=== PATIENT | female | born 1990 | race Caucasian/White ===

== ENCOUNTER → 2019-12-24 09:23 | Outpatient (CLI) | payer OTHER, SELFPAY ==
--- NOTE | 2019-12-24 09:32 | US_ITS ---
STUDY: RENAL ULTRASOUND - COMPLETE REASON FOR EXAM: Female, 29 years old. Hx hydronephrosis and renal calc TECHNIQUE: Ultrasound evaluation of the kidneys was performed with real-time and static castillo-scale imaging. COMPARISON: None. FINDINGS: RIGHT KIDNEY: Normal location of the right kidney, which is normal in size. The right kidney measures 10.7 cm x 5 cm x 3.9 cm. There is a normal cortex of the right kidney. The renal cortex measures 1.5 cm. There is no right renal mass or cyst. There are no right renal calculi. There is no right hydronephrosis. DISTAL RIGHT URETER: There is non-visualization of the distal right ureter. There is no demonstrated right ureterovesical junction calculus. There is a visualized right ureteral jet. LEFT KIDNEY: Normal location of the left kidney, which is normal in size. The left kidney measures 10.7 cm x 4.2 cm x 4.9 cm. There is a normal cortex of the left kidney. The renal cortex measures 1.3 cm. There is no left renal mass or cyst. There are no left renal calculi. There is no left hydronephrosis. DISTAL LEFT URETER: There is non-visualization of the distal left ureter. There is no demonstrated left ureterovesical junction calculus. There is a visualized left ureteral jet. BLADDER: The distended urinary bladder has a volume of 76 ml. There is a normal wall thickness of the distended urinary bladder. There is no demonstrated mass within the urinary bladder. There are no demonstrated bladder calculi. US/Kidney and Bladder IMPRESSION: Normal ultrasound of the kidneys and urinary bladder. Electronically Signed: Kenny Jean-Baptiste, at 13:30 EDT , Service support ,
== END ==
PROVIDERS: PCP Family Medicine; Referring Provider Urology; Visit Provider Urology
DX: N13.2 Hydronephrosis with renal and ureteral calculous obstruction (principal)
CPT/HCPCS: 76770

== ENCOUNTER → 2025-03-08 | Outpatient (CLI) | payer BC, SELFPAY ==
--- NOTE | 2025-03-08 16:35 | US_ITS ---
PROCEDURE: KIDNEY AND BLADDER 03/08/2025 REASON FOR EXAM: URGENCY, BACK PAIN, HISTORY STONES TECHNIQUE: Procedure Code: USKI Modality: US Procedure: KIDNEY AND BLADDER. Real-time ultrasound of the retroperitoneum (complete) with image documentation. COMPARISON: 12/24/2019 FINDINGS: RIGHT KIDNEY Size: Normal measuring 10.7 x 3.8 x 4.1 cm. Echogenicity: Normal. Parenchymal thickness: Normal. Hydronephrosis: None. Calculi: Two calculi, both measuring 0.3 x 0.2 x 0.2 cm. Cysts: None. Solid masses: None. LEFT KIDNEY Size: Normal measuring 10.1 x 4.6 x 4.7 cm. Echogenicity: Normal. Parenchymal thickness: Normal. Hydronephrosis: None. Calculi: Two calculi measuring 0.2 x 0.2 x 0.3 cm and 0.2 x 0.1 x 0.3 cm. Cysts: None. Solid masses: None. BLADDER: Normal morphology with prevoid volume of 245 mL. Postvoid volume of 4.7 mL, which is within normal limits. OTHER: None. US/Kidney and Bladder IMPRESSION: Nonobstructing renal calculi bilaterally. Reading Location: [id number]
--- OUTSIDE RECORDS SUMMARY | 2025-03-08 16:43 | XMS RPT_ITS | CCD ---
Author Organization [facility] Care Team Providers Care [employer] Stewardess Name Role Phone Phong Kelley Unavailable UnavailBuzz Jones Unavailable Unavailable Rajinder Ortiz Unavailable Unavailable Jeanie Cleveland Unavailable Unavailable None, No PCP Unavailable Unavailable Jeanie Cleveland Primary Care Provider Jeanie Cleveland MD Primary Care Provider Jeanie Cleveland Unavailable Unavailable Unavailable Jeanie Cleveland MD Primary Care Provider Jeanie Cleveland MD Primary Care Provider JEANIE CLEVELAND Primary Care Unava ilable ZURI TANG DO Attending Unavailab JEANIE Smith Primary Care Unava ilable ZURI DE LA PZA Attending Unavailable JEANIE CLEVELAND Primary Care Unava ilable Sarahi Banegas Unavailable Meagan Castillo Unavailable [facility] Primary Care Provider ED RODRÍGUEZ Attending Unavailable RUTH WALTER Attending Unavailable Cristofer SRIVASTAVA, Dr. Ware Primary Care Provider [phone] Dr. Jeanie Cleveland MD Referring Provider [phone] Dr. Gabby August MD Attending Provider Jeanie Cleveland Primary Care Unavailable Gabby August Attending Unavailable Jeanie Cleveland Referring Unavailable Gabby August Referring Unavailable Gabby August Attending Unavailable RUTH WALTER Primary Care Unavailable Medications Current Medications Medication Drug Class(es) Dates Sig (Normalized) Sig (Original) Albuterol 90 mcg/inh inhalation aerosol (1 source) beta2-Adrenergic Agonist Start: 08-03-2022 Albuterol 90 mcg/inh inhalation aerosol amitriptyline hydrochloride 25 mg oral tablet (2 sources) Tricyclic Antidepressant Start: 09-18-2021 take 1 tablet by mouth once daily amitriptyline (ELAVIL) 25 MG tablet Take 1 tablet by mouth nightly 30 tablet 5 09/18/2021 Active amoxicillin 500 mg oral capsule (1 source) Penicillin-class Antibacterial Start: 10-24-2024 End: 10-31-2024 take 1 capsule by mouth three times daily amoxicillin (Amoxil) 500 MG capsule Indications: Acute otitis externa of left ear, unspecified type , Upper respiratory tract infection, unspecified type Take 1 capsule (500 mg) by mouth 3 times daily for 7 days. 21 capsule 10/24/2024 10/31/2024 Active azelastine hydrochloride 0.137 mg/actuat metered dose nasal spray (1 source) Histamine-1 Receptor Antagonist Start: 05-02-2023 Azelastine 137 mcg/inh (0.1%) nasal spray benzonatate 200 mg oral capsule (2 sources) Non-narcotic Antitussive Start: 05-02-2023 Benzonatate 200 mg oral capsule Start: 06-23-2014 take 1 capsule by mo [facility] three times daily as needed Benzonatate 100 MG Oral Capsule TAKE 1 CAPSULE 3 TIMES DAILY NEEDED. Quantity: 30 Refills: 0 Phong Kelley DO Start : 23-Jun-2014 Active bismuth subsalicylate (1 source) Bismuth Bismuth Subsalic ylate (PEPTO-BISMOL PO) Take by mouth 0 Active cefdinir 300 mg oral capsule (1 source) Cephalosporin Antibacterial Start: 05-02-2023 Cefdinir 300 mg oral capsule cyclobenzaprine hydrochloride 10 mg oral tablet (3 sources) Muscle Relaxant Start: 11-28-2023 Cyclobenzaprine 10 mg oral tablet Start: 01-05-2021 take 1 tablet by maritza three times daily Cyclobenzaprine HCl - 10 MG Oral Tablet TAKE 1 TABLET 3 TIMES DAILY. Quantity: 15 Refills: 0 Ordered: 05-Jan-2021 Feroz Cole MD Start : 05-Jan-2021 Active diclofenac sodium 0.01 mg/mg topical gel (2 sources) Nonsteroidal Anti-inflammatory Drug Start: 09-05-2020 diclofenac sodium (VOLTAREN) 1 % GEL Apply 2 g topically 2 times daily 100 g 2 09/05/2020 Active doxycycline hyclate 100 mg oral tablet (1 source) Tetracycline-class Drug Start: 08-03-2022 Doxycycline hyclate 100 mg oral tablet famotidine 40 mg oral tablet (2 sources) Histamine-2 Receptor Antagonist Start: 10-08-2021 take 1 tablet by mouth once daily in the evening famotidine (PEPCID) 40 MG tablet Indications: NSAID induced gastritis Take 1 tablet by mouth every evening 30 tablet 3 10/08/2021 Active methylPREDNISolone 125 mg injection (1 source) Corticosteroid Start: 11-28-2023 MethylPREDNISolone sodium succinate 125 mg injection 24 hr nicotine 0.583 mg/hr transdermal system (1 source) Cholinergic Nicotinic Agonist Start: 01-02-2025 apply 1 dose transdermal route every twenty-four hours nicotine (Nicoderm CQ) 14 MG/24HR patch Indications: Tobacco use Place 1 patch on the skin Every 24 hours. 30 patch 1 01/02/2025 Active predniSONE 20 mg oral tablet (2 sources) Start: 08-03-2022 PredniSONE 20 mg oral tablet Start: 11-19-2018 take 3 tablets by mo ut once daily, then take 1 tablet by mouth once daily, then take 3 tablets by mouth once daily, then take 5 tablets by mouth predniSONE 10 MG Oral Tablet 3 tabs day number 1 and 2, then 2 tabs day number 3 and 4, then 1 tab day number 5 and 6 Quantity: 12 Refills: 0 Buzz Sage MD Start : 19-Nov-2018 Active (1 source) Start: 11-28-2023 Inj - Ketorola c Completed/Discontinued Medications Medication Drug Class(es) Dates Sig (Normalized) Sig (Original) acetaminophen 250 mg / aspirin 250 mg / caffeine 65 mg oral tablet (2 sources) Platelet Aggregation Inhibitor, Nonsteroidal Anti-inflammatory Drug, Central Nervous System Stimulant, Methylxanthine Excedrin Migraine 250-250-65 MG Oral Tablet Quantity: 0 Refills: 0 Ordered: 11-Jan-2020 DO Active naproxen 500 mg oral tablet (9 sources) Nonsteroidal Anti-inflammatory Drug Start: 09-15-2018 take 1 tablet by mouth twice daily at mealtime naproxen (NAPROSYN) 500 MG tablet Take 1 tablet by mouth 2 times daily (with meals) 20 tablet 0 09/15/2018 Active Start: 06-23-2014 take 1 tablet by maritza th every twelve hours at mealtime Naproxen 500 MG Oral Tablet TAKE 1 TABLET EVERY 12 HOURS WITH FOOD. Quantity: 20 Refills: 0 Ordered: 05-Jan-2021 Feroz Cole MD Start : 05-Jan-2021 Active propranolol hydrochloride 10 mg oral tablet (2 sources) beta-Adrenergic Jennifer Start: 01-18-2020 take 1 tablet by mouth twice daily Propranolol HCl - 10 MG Oral Tablet take 1 tab twice daily Quantity: 60 Refills: 3 Ordered: 07-Mar-2020 Velasquez Jennings MD Start : 18-Jan-2020 Active SUMAtriptan 50 mg oral tablet (2 sources) Serotonin-1b and Serotonin-1d Receptor Agonist Start: 01-18-2020 take 1 tablet by mouth every two hours SUMAtriptan Succinate 50 MG Oral Tablet TAKE 1 TABLET FOR MIGRAINE RELIEF. MAY REPEAT EVERY 2 HOURS. MAX 200MG/DAY. Quantity: 15 Refills: 3 Ordered: 18-Jan-2020 Velasquez Jennings MD Start : 18-Jan-2020 Active Problems Active Problems Problem Classification Problem Date Documented Da te Episodic/Chronic Administrative/social admission (3 sources) First encounter by subject; Translations: [Persons encountering health services in other specified circumstances] Onset: 01-02-2025 01-02-2025 Episodic Anxiety disorders (1 source) Generalized anxiety disorder; Translations: [Generalized anxiety disorder] Onset: 01-02-2025 01-02-2025 Chronic Calculus of urinary tract (14 sources) Kidney stone; Translations: [Calculus of kidney] Onset: 01-03-2018 01-03-2018 Episodic Chronic obstructive pulmonary disease and bronchiectasis (1 source) Chronic obstructive pulmonary disease with (acute) exacerbation; Translations: [Chronic obstructive pulmonary disease w (acute) exacerbation] Onset: 08-03-2022 Chronic Conditions associated with dizziness or vertigo (1 source) Dizziness and giddiness; Translations: [Lightheadedness] Onset: 03-17-2023 Episodic Fever of unknown origin (3 sources) Fever; Translations: [Fever, unspecified] Episodic Genitourinary symptoms and ill-defined conditions (3 sources) Increased frequency of urination; Translations: [Urinary frequency] Episodic Headache; including migraine (3 sources) Migraine; Translations: [Migraine, unspecified, without mention of intractable migraine without mention of status migrainosus] Onset: 12-29-2022 Chronic Influenza (3 sources) Influenza due to Influenza A virus; Translations: [Influenza with other respiratory manifestations] Episodic Menstrual disorders (10 sources) Dysmenorrhea; Translations: [Dysmenorrhea, unspecified] Onset: 02-14-2018 02-14-2018 Chronic Nonspecific chest pain (2 sources) Chest pain, unspecified; Translations: [Other chest pain] Onset: 05-31-2022 Episodic Open wounds of extremities (3 sources) Laceration of hand; Translations: [Laceration of hand without foreign body] Episodic Other ear and sense organ disorders (1 source) Acute otitis externa of left ear; Translations: [Unspecified acute noninfective otitis externa, left ear] 10-24-2024 Episodic Other ear and sense organ disorders (2 sources) Unspecified acute noninfective otitis externa, left ear; Translations: [Unspecified acute noninfective otitis externa, left ear] Onset: 10-24-2024 Episodic Other endocrine disorders (10 sources) Polycystic ovarian syndrome; Translations: [Polycystic ovary syndrome] Onset: 02-14-2018 02-14-2018 Chronic Other female genital disorders (10 sources) Abnormal uterine bleeding; Translations: [Abnormal uterine and vaginal bleeding, unspecified] Onset: 02-14-2018 02-14-2018 Chronic Other injuries and conditions due to external causes (3 sources) Otitic barotrauma; Translations: [Barotrauma, otitic] Episodic Other injuries and conditions due to external causes (3 sources) Injury of forearm; Translations: [Elbow, forearm, and wrist injury] Episodic Other nervous system disorders (2 sources) Tremor; Translations: [Abnormal involuntary movements] Episodic Other non-traumatic joint disorders (1 source) Knee pain; Translations: [Acute pain of left knee] Episodic Other screening for suspected conditions (not mental disorders or infectious disease) (9 sources) Patient encounter status; Translations: [Encounter for screening for lipoid disorders] Onset: 01-02-2025 01-02-2025 Episodic Other upper respiratory infections (8 sources) Viral upper respiratory tract infection; Translations: [Acute upper respiratory infections of unspecified site] Onset: 08-03-2022 10-24-2024 Episodic Residual codes; unclassified (3 sources) Tobacco use and exposure - finding; Translations: [Tobacco use] Onset: 01-02-2025 01-02-2025 Episodic Residual codes; unclassified (1 source) Tobacco use; Translations: [Tobacco use] Onset: 01-02-2025 Episodic Skin and subcutaneous tissue infections (2 sources) Infection of finger; Translations: [Unspecified local infection of skin and subcutaneous tissue] Episodic Spondylosis; intervertebral disc disorders; other back problems (4 sources) Torticollis; Translations: [Torticollis, unspecified] Onset: 11-28-2023 Episodic Urinary tract infections (6 sources) Acute urinary tract infection; Translations: [Urinary tract infection, site not specified] Resolved: 09-15-2018 Episodic Viral infection (1 source) COVID-19; Translations: [COVID-19] Onset: 08-11-2023 Past or Other Problems Problem Classification Problem Date Documented Da te Episodic/Chronic Abdominal pain (6 sources) Generalized abdominal pain; Translations: [Generalized abdominal pain] Onset: 10-08-2021 10-08-2021 Episodic Acute bronchitis (4 sources) Acute bronchitis; Translations: [Acute bronchitis] Onset: 05-02-2023 Episodic Gastritis and duodenitis (6 sources) NSAID-associated gastropathy; Translations: [Other gastritis without bleeding] Onset: 10-08-2021 10-08-2021 Episodic Gastrointestinal hemorrhage (6 sources) Hematochezia; Translations: [Melena] Onset: 10-08-2021 Resolved: 01-02-2025 10-08-2021 Episodic Nausea and vomiting (1 source) Nausea; Translations: [Nausea] Onset: 12-29-2022 Episodic Other connective tissue disease (1 source) Pain in left lower leg; Translations: [Pain of left calf] Onset: 05-31-2022 Episodic Other lower respiratory disease (1 source) Shortness of breath; Translations: [Shortness of breath] Onset: 05-31-2022 Episodic Other skin disorders (1 source) Other skin changes; Translations: [Change of skin color] Onset: 05-31-2022 Episodic Otitis media and related conditions (4 sources) Acute left otitis media; Translations: [Unspecified otitis media] Onset: 05-02-2023 Episodic Unclassified (1 source) First encounter by subject 01-02-2025 NEGATED: Highlighted row has not occurred!Residual codes; unclassified (5 sources) Disease Episodic Results Test Name Value Interpretation Reference Range Facility MR/Abdirashid 02-11-2025 MR/ANGELES [facility] [address], [address] [place] [address] OFFICE VISIT Date of Service: 02/11/25 MR#: [id number] Acct: [id number] Name: JOHANNY FOX Rep #: [id number] : 1990 Provider: Dr. Gabby Gautam i, MD Age/Sex: 34/F Location: [facility] Status: Signed Intake Vital Signs 02/11/25 08:05 Height 5 ft 1 in Weight: 110 lb BMI 20.7 BP 99/76 Pulse 84 Intake Visit Reasons: old/new pt. stones Chief Complaint: new patient for h/o kidney stones and frequency Sales Promotion Director Required: No Accompanied by: Self Is patient in pain?: No Allergies No Known Allergies Allergy (Unverified 02/11/25 08:04) Nurse's Note: Bladder scan PVR 0cc. PFSH Medical History Urgency of micturition Frequency of urination Kidney stones Social History Smoking Status: Current every day smoker alcohol intake: never substance use type: does not use what type of physical activity do you participate in: other frequency: 3-4 times per week do you feel safe at home: Yes HPI [facility] Chief Complaint: new patient for h/o kidney stones and frequency Details: JOHANNY FOX, is a 34 F. She is a previous patient. She is here with increased urinary frequency and pain in the last few weeks. She has been voiding every 30 minutes during the day and having urgency and low back pain similar to her previous stones (3-4). Her largest one was 5mm in size. No fever, chills, nausea, vomiting, hematuria, dysuria. Her last stone was in 2020 maybe with Summa. She had a 24hr UA and really has increased her fluid intake. No recent urinary tract infections. Her symptoms have resolved over the last couple of days. She has not seen any stones pass. There is now no urgency, normal frequency and no pain. She is worried it is a stone and symptoms will return. No other urologic concerns today including incontinence, pelvic pain, etc. ROS Const Constitutional: No chills, fatigue, fever(s), headache(s), night sweats, weakness, weight change, abnormal sleep pattern or change in appetite Eyes Eyes: No change in vision ENT ENT: No headache(s) or dry mouth Resp Respiratory: No cough, chest congestion, shortness of breath or wheezing Cardio Cardiology: Positive for other (No chest pain.); No shortness of breath, irregular heart rhythm or lightheadedness Gastro GI: Positive for other (No nausea.); No abdominal pain, change in bowel habits, constipation, diarrhea or vomiting Musc Musculoskeletal: No abnormal gait Skin Skin: No yellowing of the eye, lesions, itchy eyes, rash or skin ulcer Neuro Neurology: No abnormal gait, confusion, dizziness, weakness, headache(s) or memory loss Psych Psychiatric: No abnormal sleep pattern, No change in appetite, No confusion and No memory loss Endo Endocrine: No fatigue, increased thirst/drinking or weight change Aller/Imm Allergy/Immunologic: No itchy eyes or wheezing Issac/Lymp Hematologic/Lymphatic: No easy bleeding, easy bruising or enlarged lymph nodes Exam Const General: cooperative, healthy appearing, comfortable and no acute distress [facility] Head: normocephalic and atraumatic Ears: hearing grossly normal bilaterally and external ears normal Nose: external nose normal Eyes General: appearance normal, both eyes and all related structures Neck Neck: normal visual inspection and trachea midline Chest Chest palpation inspection: normal inspection of the chest Resp Effort Inspection: normal respiratory effort, able to speak in complete sentences and symmetric chest movement Cardio Rate: regular rate GI Inspection: normal to inspection Palpation: soft and nontender General: No CVA tenderness Skin General: no rashes or lesions noted Neuro General: patient alert, patient awake, patient oriented x3 and CN's II-XI intact bilaterally Extrem General: normal to inspection Psych Appearance: grossly normal and well kempt Mental Status: mental status grossly normal Office Procedures Post Void Residual Post Void Residual: 0cc Results POC UA Auto w/o Microscopy Office Urine Color Last Edit by Leandra Ruff on 02/11/25 08:11 Office Urine Clarity Last Edit by Leandra Ruff on 02/11/25 08:11 Office Urine Glucose Negative Last Edit by Leandra Ruff on 02/11/25 08:11 Office Urine Ketones Negative Last Edit by Leandra Ruff on 02/11/25 08:11 Office Urine Bilirubin Negative Last Edit by Leandra Ruff on 02/11/25 08:11 Office Urine Urobilinogen Negative Last Edit by Leandra Ruff on 02/11/25 08:11 Off Ur Spec [place] 1.010 Last Edit by Leandra Ruff on 02/11/25 08:11 Office Urine pH 6.5 Last Edit by Leandra Ruff on 02/11/25 08:11 Office Urine Protein N (more content not included)... Normal [facility] Office Visiton 01-02-2025 Follow-up visit [id number] Johanny Fox 1990 F Date Provider Department Center 01/02/2025 [facility] Anthony MUNGUIA Family History Problem Relation Age of Onset Lung cancer Paternal Grandfather No Known Problems Mother Alcohol abuse Father Colon cancer Maternal Grandfather Hypertension Father No Known Problems Sister Comments: Polycystic ovarian syndrome Hypertension Paternal Grandmother Heart disease Father Diabetes Maternal Grandmother Breast cancer Maternal Grandmother 58.00 Family Status - Relation Status Age at Paternal Grandfather Mother Alive Father Maternal Grandfather Sister Alive Paternal Grandmother Maternal Grandmother Level of Service:[id number] ID INITIAL PREVENTIVE MEDICINE NEW PT AGE [id number] Reason for Visit and Comments: Establish Care [42] Normal [facility] Progress Noteon 01-02-2025 Progress Note [facility] Johanny Fox Date of : 1990 Age : 34 y.o. Date of Visit: 01/02/2025 Chief Complaint: Johanny Ordoñezlettyblu is a 34 y.o. female who presents for Chief Complaint Patient presents with Establish Care HPI: New patient here to re-establish care- prev Cristofer patient. Following with estimator Asking for annual visit. Labs done 02/2023- normal/stable. She is asking for help with smoking cessation- smoking /2-1 ppd Review of Systems Constitutional: Negative. Negative for activity change (works in [employer] and appetite change (less during the day. lots of water.). HENT: Negative. Eyes: Negative. Respiratory: Negative. Negative for cough and shortness of breath. Cardiovascular: Negative. Gastrointestinal: Negative. Endocrine: Negative. Genitourinary: Negative. Musculoskeletal: Negative. Skin: Negative. Allergic/Immunologic: Negative. Neurological: Negative. Hematological: Negative. Psychiatric/Behavioral: Negative for self-injury, sleep disturbance and suicidal ideas. The patient is nervous/anxious (following with counselor). Medical History[1] Active Ambulatory Problems Diagnosis Date Noted Abnormal uterine bleeding 02/14/2018 Kidney stone on right side 01/03/2018 Severe dysmenorrhea 02/14/2018 Polycystic ovary syndrome 02/14/2018 Generalized abdominal pain 10/08/2021 NSAID induced gastritis 10/08/2021 Tobacco use 01/02/2025 PARTHA (generalized anxiety disorder) 01/02/2025 Resolved Ambulatory Problems Diagnosis Date Noted Blood in stool 10/08/2021 Past Medical History: Diagnosis Date Anxiety Kidney stone 2017 UTI (urinary tract infection) Surgical History[2] Current Medications[3] Long-Term Medications[4] Allergies[5] Immunization History Administered Date(s) Administered DTP [birth year] DTaP, Unspecified 11/11/1993, 12/31/1997, 02/01/2017 Hep A, Adult 08/20/2008 Hep A, ped/adol, 2 dose 01/28/2011 Hep B, Adolescent or Pediatric 06/15/1994 Hep B, adult 03/30/1994, 05/26/1994, 11/30/1994 HiB, unspecified 1990, 1992, 10/07/1993, 04/07/1996 MMR 10/07/1993, 12/31/1997 Meningococcal B, Omv 08/20/2008 Meningococcal MCV4P 08/20/2008 OPV 1990, 1990, 11/11/1993 Polio, Unspecified 12/31/1997 Tdap 08/20/2008, 02/01/2017, 12/10/2019 Varicella 02/28/1995, 08/20/2008 OBJECTIVE: BP 94/63 (BP Location: Left arm, Patient Position: Sitting, BP Cuff Size: Adult) Pulse 71 Temp 36.3 ?C (97.4 ?F) (Temporal) Resp 16 Ht 5' 2" (1.575 m) Wt 98 lb (44.5 kg) LMP 12/14/2024 (Exact Date) BMI 17.92 kg/m? Physical Exam Vitals and nursing note reviewed. Constitutional: General: She is not in acute distress. Appearance: Normal appearance. She is not ill-appearing, toxic-appearing or diaphoretic. HENT: Head: Normocephalic and atraumatic. Nose: Nose normal. Mouth/Throat: Mouth: Mucous membranes are moist. Eyes: Conjunctiva/sclera: Conjunctivae normal. Pupils: Pupils are equal, round, and reactive to light. Cardiovascular: Rate and Rhythm: Normal rate and regular rhythm. Pulses: Normal pulses. Heart sounds: Normal heart sounds. No murmur heard. Pulmonary: Effort: Pulmonary effort is normal. No respiratory distress. Breath sounds: Normal breath sounds. Abdominal: General: Bowel sounds are normal. There is no distension. Palpations: Abdomen is soft. There is no mass. Tenderness: There is no abdominal tenderness. There is no right CVA tenderness, left CVA tenderness, guarding or rebound. Hernia: No hernia is present. Musculoskeletal: General: Normal range of motion. Cervical back: Normal range of motion. No rigidity. Right lower leg: No edema. Left lower leg: No edema. Skin: General: Skin is warm and dry. Neurological: General: No focal deficit present. Mental Status: She is alert and oriented to person, place, and time. Psychiatric: Mood and Affect: Mood normal. Behavior: Behavior normal. Comments: Following with counselor for anxiety ASSESSMENT & PLAN: Problem List Items Addressed This Visit Tobacco use Relevant Medications nicotine (Nicoderm CQ) 14 MG/24HR patch Other Relevant Orders CBC Other Visit Diagnoses Encounter to establish care with new provider - Primary Relevant Orders [facility] Annual physical exam ~ reviewed HCGs and HM with patient. ~ given information sheet on well visit, preventative care and guidelines for healthy living ~ medications reviewed and refills given if requested or required ~ updated medication list and medical history with patient ~ follow up in 1 year, sooner if needed Relevant Orders Comprehensive metabolic panel CBC Lipid panel TSH Screening, lipid Relevant Orders Lipid panel Screening for endocrine disorder Relevant Orders Comprehensive metabolic panel TSH Screening, anemia, deficiency, iron Relevant Orders CBC O (more content not included)... [facility] 01-01-2025 36 Called patient to co irm tomorrow's appointment. No answer. Left message. [facility] 10-24-2024 36 S: Patient spoke britt h [facility] nurse regarding ear pain/congestion to ear/unable to hear out of that ear. B: Onset of symptoms/concern Lissette. A: Pt states she has been having issues with her left ear for a few weeks now. Seen in and given Zyrtec and Flonase but nothing is helping. Ear is becoming painful now. Pt cannot hear out of that ear and she is becoming concerned. Denies fever, drainage to ear, redness to ear, nausea, vomiting. Pt states she is also having sore throat, congestion, cough, slight SOB. Pt wants appt today for eval. No appts in office. Pt wants to POD schedule. R: Patient POD scheduled. Ins verified. Pt to bring photo ID; Ins card to appt. Pt aware of office location. Pt to call back if any further ques or concerns. Reason for Disposition Patient wants to be seen Ear congestion lasts > 3 days and no improvement after using Care Advice (Exception: Ear congestion is a chronic symptom.) Earache lasts > 1 hour Answer Assessment - Initial Assessment Questions 1. LOCATION: "Which ear is involved?" Left ear 2. SENSATION: "Describe how the ear feels." (e.g., stuffy, full, plugged)." Plugged and can't hear out of it 3. ONSET: "When did the ear symptoms start?" Lissette 4. PAIN: "Do you also have an earache?" If Yes, ask: "How bad is it?" (Scale 0-10; none, mild, moderate or severe) Pressure feeling 5/10 5. CAUSE: "What do you think is causing the ear congestion?" (e.g., common cold, nasal allergies, recent flight, recent snorkeling) unsure 6. OTHER SYMPTOMS: "Do you have any other symptoms?" (e.g., ear drainage, hay fever symptoms such as sneezing or a clear nasal discharge; cold symptoms such as a cough or runny nose) Sore throat; raspy voice,cough; nasal congestion, SOB 7. : "Is there any chance you are ?" When was your last menstrual period?" No Protocols used: Ear - [id number] Normal [facility] Office Visiton 10-24-2024 Follow-up visit [id number] Johanny Fox 1990 F Date Provider Department Center 10/24/2024 ED [facility] Family History Problem Relation Age of Onset Lung cancer Paternal Grandfather No Known Problems Mother Alcohol abuse Father Colon cancer Maternal Grandfather Hypertension Father No Known Problems Sister Comments: Polycystic ovarian syndrome Hypertension Paternal Grandmother Heart disease Father Diabetes Maternal Grandmother Breast cancer Maternal Grandmother 58.00 Family Status - Relation Status Age at Paternal Grandfather Mother Alive Father Maternal Grandfather Sister Alive Paternal Grandmother Maternal Grandmother Level of Service:36525 ID OFFICE/OUTPATIENT ESTABLISHED LOW MDM 20 MIN Reason for Visit and Comments: Earache [796652] - left ear pain; fullness; cannot hear out of that ear; Normal [facility] Progress Noteon 10-24-2024 Progress Note [facility] [address] [place] [id number] Dept: [phone] Dept Reason for Visit: Earache (left ear pain; fullness; cannot hear out of that ear;) Assessment and Plan 1. Acute otitis externa of left ear, unspecified type - amoxicillin (Amoxil) 500 MG capsule; Take 1 capsule (500 mg) by mouth 3 times daily for 7 days., Starting Tue10/24/2024, Until Tue10/31/2024, Normal 2. Upper respiratory tract infection, unspecified type - amoxicillin (Amoxil) 500 MG capsule; Take 1 capsule (500 mg) by mouth 3 times daily for 7 days., Starting Tue10/24/2024, Until Tue10/31/2024, Normal - continue with zyrtec, flonase, OTC cough suppressant -warm compresses to left ear for comfort -Tylenol, Ibuprofen as directed for pain and discomfort Follow up if symptoms worsen or fail to improve. Subjective HPI -Onset of initial symptoms 2 weeks ago -She presents today with left ear fullness: states it feels blocked -feels she can't hear out of it well and it is becoming painful radiating to jaw. No edema noted - associated symptoms of left sided nasal congestion, sore throat. Left side of face feels slightly numb with "lots of pressure -States she started having congestion late last week with mild fever, (did not take temp), productive cough green yellow sputum and shortness of breath with exertion -She went to Urgent care and was given Flonase and zyrtec which she claims has not helped -She denies ear drainage, nausea, vomiting ,chest pain, chills Wt Readings from Last 3 Encounters: 10/24/24 101 lb (45.8 kg) 01/28/22 100 lb 3.2 oz (45.5 kg) 01/14/22 98 lb (44.5 kg) BP Readings from Last 3 Encounters: 10/24/24 94/64 01/28/22 91/64 01/14/22 88/57 Review of Systems Constitutional: Positive for fever. Negative for appetite change, chills and fatigue. HENT: Positive for congestion (left side), ear pain, hearing loss (fullness in left ear), rhinorrhea and sinus pressure (left side). Negative for facial swelling, mouth sores, sore throat and tinnitus. Sinus pain: left. Respiratory: Positive for cough (green yellow sputum) and shortness of breath (with exertion). Negative for chest tightness and wheezing. Cardiovascular: Negative for chest pain. Gastrointestinal: Negative for diarrhea and nausea. Musculoskeletal: Negative for myalgias. Skin: Negative. Neurological: Negative for weakness, light-headedness and headaches. No Known Allergies No orders of the defined types were placed in this encounter. Past Medical History: Diagnosis Date Abnormal uterine bleeding 02/14/2018 Anxiety Kidney stone 2018 Right Polycystic ovary syndrome 02/14/2018 Severe dysmenorrhea 02/14/2018 UTI (urinary tract infection) Social History Tobacco Use Smoking status: Every Day Current packs/day: 0.25 Types: Cigarettes Smokeless tobacco: Never Substance Use Topics Alcohol use: Not Currently Alcohol/week: 0.0 standard drinks of alcohol Past Surgical History: Procedure Laterality Date TONSILLECTOMY (HISTORICAL) 11/26/2013 WISDOM TOOTH EXTRACTION Family History Problem Relation Name Age of Onset Lung cancer Paternal Grandfather No Known Problems Mother Alcohol abuse Father Colon cancer Maternal Grandfather Hypertension Father No Known Problems Sister Polycystic ovarian syndrome Hypertension Paternal Grandmother Heart disease Father Diabetes Maternal Grandmother Breast cancer Maternal Grandmother 58.00 Objective BP 94/64 Pulse 87 Ht 5' 2" (1.575 m) Wt 101 lb (45.8 kg) SpO2 99% BMI 18.47 kg/m? Physical Exam Constitutional: Appearance: Normal appearance. HENT: Head: Normocephalic and atraumatic. Ears: Comments: Erythema noted in ear canal Nose: Congestion and rhinorrhea present. Mouth/Throat: Mouth: Mucous membranes are moist. Cardiovascular: Rate and Rhythm: Normal rate and regular rhythm. Heart sounds: Normal heart sounds. Pulmonary: Effort: Pulmonary effort is normal. Breath sounds: Normal breath sounds. No wheezing. Musculoskeletal: General: Normal range of motion. Cervical back: Normal range of motion. Skin: General: Skin is warm and dry. Neurological: Mental Status: She is alert and oriented to person, place, and time. Psychiatric: Mood and Affect: Mood normal. Behavior: Behavior normal. Data Reviewed and Summarized Labs: Imaging/Testing: Ed Rodríguez APRN - SUPERVISOR TYPE BAR AND SEGMENT 10/24/24 Normal [facility] CBC panel Auto (Bld)on 03-17 Erythrocyte distribution width (RBC) [Ratio] 12.5 % Normal 11.5-15.0 [facility] Comment on above: Order Comment: Franky reynolds Type: BLOOD SPECIMENOrdering Facility: [facility] Address: [address] [place] [address] Performed By: #### 5 8410-2 ####DANA LABORATORYCLIA [id number] [place] [address] [place] Hematocrit (Bld) [Volume fraction] 44.9 % Normal 36.0-46.0 [facility] Comment on above: Order Comment: Franky reynolds Type: BLOOD SPECIMENOrdering Facility: [facility] Address: [address] [address] Performed By: #### 5 8410-2 ####MEND[facility] LABORATORYCLIA [id number] [address] Hemoglobin (Bld) [Mass/Vol] 15.3 g/dL Normal 11.5-15.5 [facility] Comment on above: Order Comment: Speci men Type: BLOOD SPECIMENOrdering Facility: [facility] Address: [address] [place] [address] Performed By: #### 5 8410-2 ####MENDOZA LABORATORYCLIA [id number] [address] MCH (RBC) [Entitic mass] 30.8 pg Normal 26.0-34.0 [facility] Comment on above: Order Comment: Speci men Type: BLOOD SPECIMENOrdering Facility: [facility] Address: [address] [place] [address] Performed By: #### 5 8410-2 ####MEND[facility]ZA LABORATORYCLIA [id number] [address] MCHC (RBC) [Mass/Vol] 34.1 g/dL Normal 30.5-36.0 [facility] Comment on above: Order Comment: Speci men Type: BLOOD SPECIMENOrdering Facility: [facility] Address: [address] [place] [address] Performed By: #### 5 8410-2 ####MEND[facility]ZA LABORATORYCLIA [id number] [address] MCV (RBC) [Entitic vol] 90.5 fL Normal 80.0-100.0 [facility] Comment on above: Order Comment: Speci men Type: BLOOD SPECIMENOrdering Facility: [facility] Address: [address] [place] [address] Performed By: #### 5 8410-2 ####MENDOZA LABORATORYCLIA [id number] [address] Nucleated RBC (Bld) [#/Vol] 10*3/uL Normal <0.01 [facility] Comment on above: Order Comment: Speci men Type: BLOOD SPECIMENOrdering Facility: [facility] Address: [address] [address] Performed By: #### 5 8410-2 ####MENDOZA LABORATORYCLIA [id number] [address] [place] Platelet mean volume (Bld) [Entitic vol] 8.5 fL Low 9.0-12.7 [facility] Comment on above: Order Comment: Speci men Type: BLOOD SPECIMENOrdering Facility: [facility] Address: [address] [address] Performed By: #### 5 8410-2 ####DANA LABORATORYCLIA [id number] [address] [place] Platelets (Bld) [#/Vol] 340 10*3/uL Normal 150-400 [facility] Comment on above: Order Comment: Speci men Type: BLOOD SPECIMENOrdering Facility: [facility] Address: [address] [address] Performed By: #### 5 8410-2 ####DANA LABORATORYCLIA [id number] [address] [place] RBC (Bld) [#/Vol] 4.96 10*6/uL Normal 3.90-5.20 [facility] Comment on above: Order Comment: Speci men Type: BLOOD SPECIMENOrdering Facility: [facility] Address: [address] [address] Performed By: #### 5 8410-2 ####MENDOZA LABORATORYCLIA [id number] [address] [place] WBC (Bld) [#/Vol] 10.21 10*3/uL Normal 3.70-11.00 [facility] Comment on above: Order Comment: Speci men Type: BLOOD SPECIMENOrdering Facility: [facility] Address: [address] [address] Performed By: #### 5 8410-2 ####MENDOZA LABORATORYCLIA [id number] [address] [place] Comprehensive metabolic 2000 panelon 03-17-2023 Albumin [Mass/Vol] 4.5 g/dL Normal 3.9-4.9 [facility] Comment on above: Order Comment: Speci men Type: BLOOD SPECIMENOrdering Facility: [facility] Address: [address] [place] [address] Performed By: #### 2 4323-8, [id number], ####MENDOZA LABORATORYCLIA [id number] [address] ALP [Catalytic activity/Vol] 57 U/L Normal 34-123 [facility] Comment on above: Order Comment: Speci men Type: BLOOD SPECIMENOrdering Facility: [facility] Address: [address] [place] [address] Performed By: #### 2 4323-8, [id number], ####MENDOZA LABORATORYCLIA [id number] [address] ALT [Catalytic activity/Vol] 10 U/L Normal 7-38 [facility] Comment on above: Order Comment: Speci men Type: BLOOD SPECIMENOrdering Facility: [facility] Address: [address] [place] [address] Performed By: #### 2 4323-8, [id number], ####MENDOZA LABORATORYCLIA [id number] [address] Anion gap [Moles/Vol] 11 mmol/L Normal 9-18 [facility] Comment on above: Order Comment: Speci men Type: BLOOD SPECIMENOrdering Facility: [facility] Address: [address] [address] Performed By: #### 2 4323-8, [id number], ####MENDOZA LABORATORYCLIA [id number] [address] AST [Catalytic activity/Vol] 16 U/L Normal 13-35 [facility] Comment on above: Order Comment: Speci men Type: BLOOD SPECIMENOrdering Facility: [facility] Address: [address] [address] Performed By: #### 2 4323-8, [id number], ####MENDOZA LABORATORYCLIA [id number] [place] [address] [place] Bilirubin [Mass/Vol] 0.3 mg/dL Normal 0.2-1.3 [facility] Comment on above: Order Comment: Speci men Type: BLOOD SPECIMENOrdering Facility: [facility] Address: [address] [place] [address] Performed By: #### 2 4323-8, [id number], ####MENDOZA LABORATORYCLIA [id number] [place] [address] [place] Calcium [Mass/Vol] 9.1 mg/dL Normal 8.5-10.2 [facility] Comment on above: Order Comment: Speci men Type: BLOOD SPECIMENOrdering Facility: [facility] Address: [address] [place] [address] Performed By: #### 2 4323-8, [id number], ####MENDOZA LABORATORYCLIA [id number] [place] [address] [place] Chloride [Moles/Vol] 104 mmol/L Normal 97-105 [facility] Comment on above: Order Comment: Speci men Type: BLOOD SPECIMENOrdering Facility: [facility] Address: [address] [place] [address] Performed By: #### 2 4323-8, [id number], ####MENDOZA LABORATORYCLIA [id number] [place] [address] [place] CO2 [Moles/Vol] 22 mmol/L Normal 22-30 [facility] Comment on above: Order Comment: Speci men Type: BLOOD SPECIMENOrdering Facility: [facility] Address: [address] [place] [address] Performed By: #### 2 4323-8, [id number], ####MENDOZA LABORATORYCLIA [id number] [place] [address] [place] Creatinine [Mass/Vol] 0.64 mg/dL Normal 0.58-0.96 [facility] Comment on above: Order Comment: Franky reynolds Type: BLOOD SPECIMENOrdering Facility: [facility] Address: [address] [place] [address] Performed By: #### 2 4323-8, [id number], ####MENDOZA LABORATORYCLIA [id number] [address] Creatinine and Glomerular filtration rate.predicted panel (S/P/Bld) 122 mL/min/1.73m??? Normal >=60 [facility] Comment on above: Order Comment: Franky reynolds Type: BLOOD SPECIMENOrdering Facility: [facility] Address: [address] [address] Result Comment: Claudia mated Glomerular Filtration Rate (eGFR) is calculated using the 2020 CKD-EPI creatinine equation. This equation utilizes serum creatinine, sex, and age as parameters. The creatinine assay has traceable calibration to isotope dilution-mass spectrometry. Refer to KDIGO guidelines for clinical interpretation. In patients with unstable renal function, e.g. those with acute kidney injury, the eGFR may not accurately reflect actual GFR. Performed By: #### 2 4323-8, [id number], 90190-8 ####MENDOZA LABORATORYCLIA [id number] [place] [address] [place] Glucose [Mass/Vol] 89 mg/dL Normal 74-99 [facility] Comment on above: Order Comment: Franky reynolds Type: BLOOD SPECIMENOrdering Facility: [facility] Address: [address] Result Comment: The [place] Diabetes Association (ADA) provides guidance for cutoff values for fasting glucose and random glucose. The ADA defines fasting as no caloric intake for at least 8 hours. Fasting plasma glucose results between 100 to 125 mg/dL indicate increased risk for diabetes (prediabetes). Fasting plasma glucose results greater than or equal to 126 mg/dL meet the criteria for diagnosis of diabetes. In the absence of unequivocal hyperglycemia, results should be confirmed by repeat testing. In a patient with classic symptoms of hyperglycemia or hyperglycemic crisis, random plasma glucose results greater than or equal to 200 mg/dL meet the criteria for diagnosis of diabetes. Reference: Standards of Medical Care in Diabetes 2016, [place] [employer] Association. Diabetes Care. 2016.39(Suppl 1). Performed By: #### 2 4323-8, [id number], ####MENDOZA LABORATORYCLIA [id number] [place] [address] [place] Potassium [Moles/Vol] 4.0 mmol/L Normal 3.7-5.1 [facility] Comment on above: Order Comment: Speci men Type: BLOOD SPECIMENOrdering Facility: [facility] Address: [address] [place] [address] Performed By: #### 2 4323-8, [id number], ####MENDO[facility] LABORATORYCLIA [id number] [place] [address] [place] Protein [Mass/Vol] 7.0 g/dL Normal 6.3-8.0 [facility] Comment on above: Order Comment: Speci men Type: BLOOD SPECIMENOrdering Facility: [facility] Address: [address] [place] [address] Performed By: #### 2 4323-8, [id number], ####MENDO[facility] LABORATORYCLIA [id number] [place] [address] [place] Sodium [Moles/Vol] 137 mmol/L Normal 136-144 [facility] Comment on above: Order Comment: Speci men Type: BLOOD SPECIMENOrdering Facility: [facility] Address: [address] [place] [address] Performed By: #### 2 4323-8, [id number], ####MENDO[facility] LABORATORYCLIA [id number] [place] [address] [place] Urea nitrogen [Mass/Vol] 7 mg/dL Normal 7-21 [facility] Comment on above: Order Comment: Speci men Type: BLOOD SPECIMENOrdering Facility: [facility] Address: [address] [place] [address] Performed By: #### 2 4323-8, [id number], ####MENDOZA LABORATORYCLIA [id number] [place] [address] [place] ECG COMPLETEon 03-17-2023 ECG COMPLETE Ventricular Rate : 7 0 BPM Atrial Rate : 70 BPM P-R Interval : 120 ms QRS Duration : 78 ms Q-T Interval : 372 ms QTC Calculation(Bazett) : 401 ms Calculated P [place] : 73 degrees Calculated R [place] : 84 degrees Calculated T [place] : 58 degrees NORMAL SINUS RHYTHM WITH SINUS ARRHYTHMIA NORMAL ECG 1310 Confirmed by MD DE LA PAZ MICHAEL ([id number]), editor publications DAISY BARAJAS (1940) on 03/17/2023 4:36:38 PM NAME : JOHANNY FOX PID : [id number] : 1990 Gender : Female Race : ORD : [id number] Procedure Date : Mar 17 2023 13:08:03 Edit Date : Mar 17 2023 16:36:39 Diagnosis: NORMAL SINUS RHYTHM WITH SINUS ARRHYTHMIA NORMAL ECG 1310 Confirmed by MD DE LA PAZ MICHAEL ([id number]), editor publications DAISY BARAJAS (1940) on 03/17/2023 4:36:38 PM Test Reason : Chest Pain Location : 1 : ER ED Overread By : MD DE LA PAZ MICHAEL Edited By : DAISY BARAJAS Referred By : , Acquired by : PEDRO [facility] ED NOTEon 03-17-2023 ED NOTE HNO ID: [id number] Author: Brad Shipley RN Service: ? Author Type: Registered Nurse Type: ED Notes Filed: 03/17/2023 3:20 PM Note Text: Pt d/c to home. Instructed to follow up with MD in 3 day(s). Advised to return to ED with worsening s/s or further concerns. Pt verbalized understanding of plan. Pt ambulated from department with a steady gait, without difficulty, in care of self. IV removed intact prior to d/c. [facility] ED NOTE HNO ID: [id number] Author: Peng Mart RN Service: Nursing Author Type: Registered Nurse Type: ED Notes Filed: 03/17/2023 1:01 PM Note Text: Pt presents to ER from home for CC chest pain and SOB that started when she woke up around 0700 today. Pt took two Asprin without relief. [facility] ED PROV NOTEon 03-17-2023 ED PROV NOTE HNO ID: [id number] Author: Zuri De La Paz MD Service: ? Author Type: Physician Type: ED Provider Notes Filed: 03/17/2023 3:06 PM Note Text: ED Provider Note Patient Name: Johanny Fox : 1990 SERVICE DATE: 03/17/23 History Patient presents with: Chest Pain Shortness of Breath Patient presenting for evaluation secondary to chest pain. Patient reports that she woke up this morning and noted that she was having chest pain. She felt that maybe was associated with feelings of GERD, so she blew it off. She reports that its been going on throughout the course of the day. Seems to be getting worse with exertion associated with some lightheadedness and shortness of breath. Patient states that she is never really had a similar episodes in the past. Patient denies any DVT or PE risk factors. Patient is a smoker, but denies any family history of premature heart disease. Patient is on Zoloft for anxiety, no other prescription medications. Review of systems otherwise negative. PAST MEDICAL HISTORY Diagnosis Date Chronic tonsillitis Migraine PAST SURGICAL HISTORY Procedure Laterality Date TONSILLECTOMY PRIMARY/SECONDARY AGE 14/> 11/26/2013 FAMILY HISTORY Problem Relation Age of Onset Heart Father Social History Tobacco Use Smoking status: Every Day Packs/day: .2 Types: Cigarettes Smokeless tobacco: Not on file Substance and Sexual Activity Alcohol use: Yes Comment: rarely 1-2 a week Drug use: No Sexual activity: Not on file ALLERGIES No Known Allergies Review of Systems Constitutional: Positive for diaphoresis. Negative for activity change and fever. HENT: Negative for rhinorrhea and sore throat. Respiratory: Positive for shortness of breath. Negative for cough. Cardiovascular: Positive for chest pain. Gastrointestinal: Negative for abdominal pain, diarrhea, nausea and vomiting. Genitourinary: Negative for dysuria. Musculoskeletal: Negative for myalgias. Skin: Negative for rash. Neurological: Positive for light-headedness. Negative for weakness and numbness. Psychiatric/Behavioral: Negative for self-injury. Physical Exam Vitals [03/17/23 1301] BP Pulse Temp Temp src Resp SpO2 Weight Height 102/61 82 36.5 ?C (97.7 ?F) Temporal 18 98 % 45.4 kg (100 lb 1.4 oz) -- Physical Exam Vitals and nursing note reviewed. Constitutional: General: She is not in acute distress. Appearance: Normal appearance. She is well-developed. HENT: Head: Normocephalic and atraumatic. Nose: Nose normal. Mouth/Throat: Mouth: Mucous membranes are moist. Eyes: Conjunctiva/sclera: Conjunctivae normal. Pupils: Pupils are equal, round, and reactive to light. Neck: Vascular: No JVD. Cardiovascular: Rate and Rhythm: Normal rate and regular rhythm. Pulses: Radial pulses are 2+ on the right side and 2+ on the left side. Dorsalis pedis pulses are 2+ on the right side and 2+ on the left side. Heart sounds: Normal heart sounds. No murmur heard. No friction rub. No gallop. Pulmonary: Effort: Pulmonary effort is normal. No respiratory distress. Breath sounds: Normal breath sounds. No wheezing or rales. Chest: Chest wall: No tenderness. Abdominal: Palpations: Abdomen is soft. There is no mass or pulsatile mass. Tenderness: There is no abdominal tenderness. Musculoskeletal: General: Normal range of motion. Cervical back: Normal range of motion. Skin: General: Skin is warm and dry. Capillary Refill: Capillary refill takes less than 2 seconds. Comments: No vesicular rash noted on the chest Neurological: Mental Status: She is alert and oriented to person, place, and time. Sensory: No sensory deficit. Psychiatric: Mood and Affect: Mood normal. Diagnostic Testing ED Labs Ordered and Reviewed CBC - Abnormal; Notable for the following components: Result Value Ref Range MPV 8.5 (*) 9.0 - 12.7 fL All other components within normal limits HCG URINE - ED(POC) - Normal COMP METABOLIC PANEL MAGNESIUM BLD HIGH SENSITIVITY TROPONIN T HIGH SENSITIVITY TROPONIN T (INITIAL) Procedures ED Course / Clinical Impression Clinical Impressions as of 03/17/23 1504 Chest pain, unspecified type Lightheadedness MDM / Disposition / Plan EKG: Sinus rhythm at 70 with sinus arrhythmia isoelectric ST segments normal T waves normal intervals no signs of WPW or Brugada morphology no acute ischemia or arrhythmia Patient resenting for evaluation secondary to chest pain. PA and lateral chest x-ray by my personal review as well as radiology is noted to be negative, no signs of pneumothorax or acute cardiopulmonary process. CBC chemistry initially high-sensitivity troponin are noted to be negative, noted to be negative. Patient's symptom-free on repeat evaluation at 1500. I believe the patient likely will be stable for discharge, seems that maybe she had an element of reflux compounded by anxiety (more content not included)... Normal [facility] HIGH SENSITIVITY TROPONIN T (INITIAL)on 03-17-2023 Troponin T.cardiac High sensitivity method [Mass/Vol] <6 Normal <12 [facility] Comment on above: Order Comment: Franky reynolds Type: BLOOD SPECIMENOrdering Facility: [facility] Address: [address] [place] [address] Result Comment: When assessing risk for acute coronary syndromes: In patients undergoing blood draw greater than or equal to 2 hours from symptom onset, with history of very low to moderate risk and non-ischemic ECG, an initial hs-Troponin T less than 12 ng/L AND a 1 hour delta hs-Troponin T less than 3 ng/L should be considered very low risk for 30 day MACE. Performed By: #### 2 4323-8, [id number], 34454-7 ####MENDOZA LABORATORYCLIA [id number] [place] [address] [place] HIGH SENSITIVITY TROPONIN T (SECOND)on 03-17-2023 Troponin T.cardiac High sensitivity method [Mass/Vol] <6 Normal <12 [facility] Comment on above: Order Comment: Franky reynolds Type: BLOOD SPECIMENOrdering Facility: [facility] Address: [address] [place] [address] Result Comment: When assessing risk for acute coronary syndromes: In patients undergoing blood draw greater than or equal to 2 hours from symptom onset, with history of very low to moderate risk and non-ischemic ECG, an initial hs-Troponin T less than 12 ng/L AND a 1 hour delta hs-Troponin T less than 3 ng/L should be considered very low risk for 30 day MACE. Performed By: #### L [id number] ####MENDOZA LABORATORYCLIA [id number] [place] [id number] [place] Magnesium SerPl-mCncon 03-17 Magnesium [Mass/Vol] 2.1 mg/dL Normal 1.7-2.3 [facility] Comment on above: Order Comment: Franky reynolds Type: BLOOD SPECIMENOrdering Facility: [facility] Address: [address] [id number] Performed By: #### 2 4323-8, [id number], 92789-4 ####MENDOZA LABORATORYCLIA [id number] [place] [address] [place] XR CHEST 2V FRONTAL/LATon XR CHEST 2V FRONTAL/LAT * * *Final Report* * * DATE OF EXAM: Mar 17 2023 2:07PM MDX 5291 - XR CHEST 2V FRONTAL/LAT / PROCEDURE REASON: Shortness of breath * * * * Physician Interpretation * * * * EXAMINATION: CHEST RADIOGRAPH (2 VIEW FRONTAL and LATERAL) CLINICAL HISTORY: Shortness of breath MQ: XC2_6 EXAM DATE/TIME: 03/17/2023 2:07 PM COMPARISON: Chest radiograph 05/31/2022 RESULT: Lines, tubes, and devices: None. Lungs and pleura: No consolidation. No lung mass. No pleural effusion. No pneumothorax. Cardiomediastinal silhouette: Normal cardiomediastinal silhouette. Bones and soft tissues: Unremarkable. IMPRESSION: No acute radiographic abnormality. Tow Bar Driver: PSCB Transcribe Date/Time: Mar 17 2023 2:09P Dictated by : ASIM WARNER MD This examination was interpreted and the report reviewed and electronically signed by: ASIM WARNER MD on Mar 17 2023 2:09PM EST [id number] Normal [facility] Basic metabolic 2000 panelon 12-29-2022 Anion gap [Moles/Vol] 10 mmol/L Normal 9-18 [facility] Comment on above: Order Comment: Speci men Type: BLOOD SPECIMENOrdering Facility: [facility] Address: [place] [place] [address] Performed By: #### 2 4321-2 ####MENDOZA LABORATORYCLIA [id number] [address] Calcium [Mass/Vol] 8.8 mg/dL Normal 8.5-10.2 [facility] Comment on above: Order Comment: Speci men Type: BLOOD SPECIMENOrdering Facility: [facility] Address: [address] [place] [address] Performed By: #### 2 4321-2 ####MENDOZA LABORATORYCLIA [id number] [address] Chloride [Moles/Vol] 108 mmol/L High 97-105 [facility] Comment on above: Order Comment: Speci men Type: BLOOD SPECIMENOrdering Facility: [facility] Address: [address] [place] [address] Performed By: #### 2 4321-2 ####MENDOZA LABORATORYCLIA [id number] [address] CO2 [Moles/Vol] 22 mmol/L Normal 22-30 [facility] Comment on above: Order Comment: Speci men Type: BLOOD SPECIMENOrdering Facility: [facility] Address: [address] [place] [address] Performed By: #### 2 4321-2 ####MENDOZA LABORATORYCLIA [id number] [address] Creatinine [Mass/Vol] 0.69 mg/dL Normal 0.58-0.96 [facility] Comment on above: Order Comment: Speci men Type: BLOOD SPECIMENOrdering Facility: [facility] Address: [address] [place] [address] Performed By: #### 2 4321-2 ####MENDOZA LABORATORYCLIA [id number] [address] ESTIMATED GLOMERULAR FILTRATION RATE 120 mL/min/1.73m??? Normal >=60 [facility] Comment on above: Order Comment: Franky men Type: BLOOD SPECIMENOrdering Facility: [facility] Address: [address] [place] [address] Result Comment: Claudia mated Glomerular Filtration Rate (eGFR) is calculated using the 2020 CKD-EPI creatinine equation. This equation utilizes serum creatinine, sex, and age as parameters. The creatinine assay has traceable calibration to isotope dilution-mass spectrometry. Refer to KDIGO guidelines for clinical interpretation. In patients with unstable renal function, e.g. those with acute kidney injury, the eGFR may not accurately reflect actual GFR. Performed By: #### 2 4321-2 ####MENDOZA LABORATORYCLIA [id number] [place] [address] [place] Glucose [Mass/Vol] 113 mg/dL High 74-99 [facility] Comment on above: Order Comment: Franky reynolds Type: BLOOD SPECIMENOrdering Facility: [facility] Address: [address] [place] [address] Result Comment: The [place] Diabetes [employer] (ADA) provides guidance for cutoff values for fasting glucose and random glucose. The ADA defines fasting as no caloric intake for at least 8 hours. Fasting plasma glucose results between 100 to 125 mg/dL indicate increased risk for diabetes (prediabetes). Fasting plasma glucose results greater than or equal to 126 mg/dL meet the criteria for diagnosis of diabetes. In the absence of unequivocal hyperglycemia, results should be confirmed by repeat testing. In a patient with classic symptoms of hyperglycemia or hyperglycemic crisis, random plasma glucose results greater than or equal to 200 mg/dL meet the criteria for diagnosis of diabetes. Reference: Standards of Medical Care in Diabetes 2016, [place] [employer]. Diabetes Care. 2016.39(Suppl 1). Performed By: #### 2 4321-2 ####MENDOZA LABORATORYCLIA [id number] [place] [address] [place] Potassium [Moles/Vol] 4.5 mmol/L Normal 3.7-5.1 [facility] Comment on above: Order Comment: Franky reynolds Type: BLOOD SPECIMENOrdering Facility: [facility] Address: [address] [place] [address] Performed By: #### 2 4321-2 ####MENDOZA LABORATORYCLIA [id number] [place] [address] [place] Sodium [Moles/Vol] 140 mmol/L Normal 136-144 [facility] Comment on above: Order Comment: Franky reynolds Type: BLOOD SPECIMENOrdering Facility: [facility] Address: [address] [place] [address] Performed By: #### 2 4321-2 ####MENDOZA LABORATORYCLIA [id number] [place] [address] [place] Urea nitrogen [Mass/Vol] 9 mg/dL Normal 7-21 [facility] Comment on above: Order Comment: Speci men Type: BLOOD SPECIMENOrdering Facility: [facility] Address: [address] [place] [address] Performed By: #### 2 4321-2 ####MENDOZA LABORATORYCLIA [id number] [place] [address] [place] CBC W Auto Differential pane l (Bld)on 12-29-2022 Basophils (Bld) [#/Vol] 0.03 10*3/uL Normal <0.11 [facility] Comment on above: Order Comment: Speci men Type: BLOOD SPECIMENOrdering Facility: [facility] Address: [address] [place] [address] Performed By: #### 5 7021-8 ####MENDOZA LABORATORYCLIA [id number] [address] Basophils/100 WBC (Bld) 0.5 % Normal [facility] Comment on above: Order Comment: Speci men Type: BLOOD SPECIMENOrdering Facility: [facility] Address: [address] [place] [address] Performed By: #### 5 7021-8 ####MENDOZA LABORATORYCLIA [id number] [address] Differential cell count method Nom (Bld) Auto Normal [facility] Comment on above: Order Comment: Speci men Type: BLOOD SPECIMENOrdering Facility: [facility] Address: [address] [place] [address] Performed By: #### 5 7021-8 ####MENDOZA LABORATORYCLIA [id number] [address] [place] [facility] Eosinophils (Bld) [#/Vol] 0.07 10*3/uL Normal <0.46 [facility] Comment on above: Order Comment: Speci men Type: BLOOD SPECIMENOrdering Facility: [facility] Address: [address] [place] [address] Performed By: #### 5 7021-8 ####MENDOZA LABORATORYCLIA [id number] [address] Eosinophils/100 WBC (Bld) 1.3 % Normal [facility] Comment on above: Order Comment: Speci men Type: BLOOD SPECIMENOrdering Facility: [facility] Address: [address] [place] [address] Performed By: #### 5 7021-8 ####MENDOZA LABORATORYCLIA [id number] [place] [address] [place] Erythrocyte distribution width (RBC) [Ratio] 12.5 % Normal 11.5-15.0 [facility] Comment on above: Order Comment: Speci men Type: BLOOD SPECIMENOrdering Facility: [facility] Address: [address] [address] Performed By: #### 5 7021-8 ####MENDOZA LABORATORYCLIA [id number] [place] [address] [place] Hematocrit (Bld) [Volume fraction] 42.6 % Normal 36.0-46.0 [facility] Comment on above: Order Comment: Speci men Type: BLOOD SPECIMENOrdering Facility: [facility] Address: [address] [place] [address] Performed By: #### 5 7021-8 ####MENDOZA LABORATORYCLIA [id number] [place] [address] [place] Hemoglobin (Bld) [Mass/Vol] 14.6 g/dL Normal 11.5-15.5 [facility] Comment on above: Order Comment: Speci men Type: BLOOD SPECIMENOrdering Facility: [facility] Address: [address] [place] [address] Performed By: #### 5 7021-8 ####MENDOZA LABORATORYCLIA [id number] [place] [address] [place] Immature granulocytes (Bld) [#/Vol] 10*3/uL Normal <0.10 [facility] Comment on above: Order Comment: Speci men Type: BLOOD SPECIMENOrdering Facility: [facility] Address: [address] [place] [address] Performed By: #### 5 7021-8 ####MENDOZA LABORATORYCLIA [id number] [place] [address] [place] Immature granulocytes/100 WBC (Bld) 0.2 % Normal [facility] Comment on above: Order Comment: Speci men Type: BLOOD SPECIMENOrdering Facility: [facility] Address: [address] [place] [address] Performed By: #### 5 7021-8 ####MENDOZA LABORATORYCLIA [id number] [place] [address] [place] Lymphocytes (Bld) [#/Vol] 1.34 10*3/uL Normal 1.00-4.00 [facility] Comment on above: Order Comment: Speci men Type: BLOOD SPECIMENOrdering Facility: [facility] Address: [address] [place] [address] Performed By: #### 5 7021-8 ####MENDOZA LABORATORYCLIA [id number] [address] Lymphocytes/100 WBC (Bld) 24.4 % Normal [facility] Comment on above: Order Comment: Speci men Type: BLOOD SPECIMENOrdering Facility: [facility] Address: [address] [place] [address] Performed By: #### 5 7021-8 ####MENDOZA LABORATORYCLIA [id number] [address] [place] MCH (RBC) [Entitic mass] 31.2 pg Normal 26.0-34.0 [facility] Comment on above: Order Comment: Speci men Type: BLOOD SPECIMENOrdering Facility: [facility] Address: [address] [place] [address] Performed By: #### 5 7021-8 ####MENDOZA LABORATORYCLIA [id number] [address] [place] [facility] MCHC (RBC) [Mass/Vol] 34.3 g/dL Normal 30.5-36.0 [facility] Comment on above: Order Comment: Speci men Type: BLOOD SPECIMENOrdering Facility: [facility] Address: [address] [place] [address] Performed By: #### 5 7021-8 ####MEND[facility] LABORATORYCLIA [id number] [address] [address] MCV (RBC) [Entitic vol] 91.0 fL Normal 80.0-100.0 [facility] Comment on above: Order Comment: Speci men Type: BLOOD SPECIMENOrdering Facility: [facility] Address: [address] [place] [address] Performed By: #### 5 7021-8 ####MENDOZA LABORATORYCLIA [id number] [address] [place] Monocytes (Bld) [#/Vol] 0.58 10*3/uL Normal <0.87 [facility] Comment on above: Order Comment: Speci men Type: BLOOD SPECIMENOrdering Facility: [facility] Address: [address] [place] [address] Performed By: #### 5 7021-8 ####MEND[facility]ZA LABORATORYCLIA [id number] [address] Monocytes/100 WBC (Bld) 10.5 % Normal [facility] Comment on above: Order Comment: Speci men Type: BLOOD SPECIMENOrdering Facility: [facility] Address: [address] [place] [address] Performed By: #### 5 7021-8 ####MENDOZA LABORATORYCLIA [id number] [address] [place] Neutrophils (Bld) [#/Vol] 3.47 10*3/uL Normal 1.45-7.50 [facility] Comment on above: Order Comment: Speci men Type: BLOOD SPECIMENOrdering Facility: [facility] Address: [address] [place] [address] Performed By: #### 5 7021-8 ####MEND[facility]ZA LABORATORYCLIA [id number] [address] [place] Neutrophils/100 WBC (Bld) 63.1 % Normal [facility] Comment on above: Order Comment: Speci men Type: BLOOD SPECIMENOrdering Facility: [facility] Address: [address] [place] [address] Performed By: #### 5 7021-8 ####MENDOZA LABORATORYCLIA [id number] [address] [place] Nucleated RBC (Bld) [#/Vol] 10*3/uL Normal <0.01 [facility] Comment on above: Order Comment: Speci men Type: BLOOD SPECIMENOrdering Facility: [facility] Address: [address] [address] Performed By: #### 5 7021-8 ####MENDOZA LABORATORYCLIA [id number] [address] [place] Nucleated RBC/100 WBC (Bld) [Ratio] 0.0 /100 WBC Normal [facility] Comment on above: Order Comment: Speci men Type: BLOOD SPECIMENOrdering Facility: [facility] Address: [address] [place] [address] Performed By: #### 5 7021-8 ####MENDOZA LABORATORYCLIA [id number] [place] [address] [place] Platelet mean volume (Bld) [Entitic vol] 8.4 fL Low 9.0-12.7 [facility] Comment on above: Order Comment: Speci men Type: BLOOD SPECIMENOrdering Facility: [facility] Address: [address] [address] Performed By: #### 5 7021-8 ####MENDOZA LABORATORYCLIA [id number] [place] [address] [place] Platelets (Bld) [#/Vol] 238 10*3/uL Normal 150-400 [facility] Comment on above: Order Comment: Speci men Type: BLOOD SPECIMENOrdering Facility: [facility] Address: [address] [address] Performed By: #### 5 7021-8 ####MENDOZA LABORATORYCLIA [id number] [place] [address] [place] RBC (Bld) [#/Vol] 4.68 10*6/uL Normal 3.90-5.20 [facility] Comment on above: Order Comment: Speci men Type: BLOOD SPECIMENOrdering Facility: [facility] Address: [address] [address] Performed By: #### 5 7021-8 ####DANA LABORATORYCLIA [id number] [place] [address] [place] WBC (Bld) [#/Vol] 5.50 10*3/uL Normal 3.70-11.00 [facility] Comment on above: Order Comment: Speci men Type: BLOOD SPECIMENOrdering Facility: [facility] Address: [facility] [place] [address] Performed By: #### 5 7021-8 ####DANA LABORATORYCLIA [id number] [place] [address] [facility] [place] ED NOTEon 12-29-2022 ED NOTE HNO ID: [id number] Author: Garrett Reid RN Service: ? Author Type: Registered Nurse Type: ED Notes Filed: 12/29/2022 9:31 AM Note Text: Pt d/c to home. Instructed to f/u with MD in one day. Advised to return to ED with worsening s/s or further concerns. Pt verbalized understanding of plan. Pt ambulated from department with a steady gait, without difficulty, in care of self. IV removed intact prior to leaving. Normal [facility] ED PROV NOTEon 12-29-2022 ED PROV NOTE HNO ID: [id number] Author: Zuri Tang DO Service: Emergency Medicine Author Type: Physician Type: ED Provider Notes Filed: 12/29/2022 11:13 AM Note Text: ED Provider Note Patient Name: Johanny Fox : 1990 SERVICE DATE: 12/29/22 History Patient presents with: Headache: Migraine x 3 days, no relief with home meds. +photophobia and nausea. Johanny Fox is a 32-year-old female is presenting to the emergency department with a migraine headache. Patient states she gets migraines from time to time. She does have sumatriptan at home. This migraine came on gradually with the typical auras that she has had in the past. She had some mild neck tightness which she had somebody massage initially there after her migraine began. States it is similar to previous migraine she has had however this time states she almost has more tension-like characteristics. This has been associated with visual auras which is typical and mild nausea. Patient states yesterday she did feel slightly vertiginous which was improved today though this is atypical for her. She did have some tingling in her fingertips and toes as well. Denies any fevers or chills or other major changes. PAST MEDICAL HISTORY Diagnosis Date Chronic tonsillitis Migraine PAST SURGICAL HISTORY Procedure Laterality Date REMOVAL OF TONSILS,14+ Y/O 11/26/2013 FAMILY HISTORY Problem Relation Age of Onset Heart Father Social History Tobacco Use Smoking status: Every Day Packs/day: 0.20 Types: Cigarettes Smokeless tobacco: Not on file Substance and Sexual Activity Alcohol use: Yes Comment: rarely 1-2 a week Drug use: No Sexual activity: Not on file ALLERGIES No Known Allergies Review of Systems Constitutional: Negative for chills and fever. HENT: Negative for congestion, rhinorrhea and sore throat. Eyes: Positive for photophobia and visual disturbance (auras). Respiratory: Negative for cough and shortness of breath. Cardiovascular: Negative for chest pain, palpitations and leg swelling. Gastrointestinal: Positive for nausea. Negative for abdominal pain, diarrhea and vomiting. Genitourinary: Negative for dysuria and hematuria. Musculoskeletal: Negative for back pain. Skin: Negative for pallor, rash and wound. Neurological: Positive for dizziness and headaches. Psychiatric/Behavioral: Negative for confusion. Physical Exam Vitals [12/29/22 0730] BP Pulse Temp Temp src Resp SpO2 Weight Height 108/68 (!) 92 36.6 ?C (97.9 ?F) Oral 17 99 % 46.7 kg (103 lb) -- Physical Exam Vitals and nursing note reviewed. Constitutional: General: She is not in acute distress. Appearance: She is well-developed. HENT: Head: Normocephalic and atraumatic. Right Ear: External ear normal. Left Ear: External ear normal. Eyes: General: No scleral icterus. Right eye: No discharge. Left eye: No discharge. Conjunctiva/sclera: Conjunctivae normal. Pupils: Pupils are equal, round, and reactive to light. Cardiovascular: Rate and Rhythm: Normal rate and regular rhythm. Heart sounds: No murmur heard. No friction rub. No gallop. Pulmonary: Effort: Pulmonary effort is normal. No respiratory distress. Breath sounds: Normal breath sounds. No wheezing or rales. Chest: Chest wall: No tenderness. Abdominal: General: Bowel sounds are normal. There is no distension. Palpations: Abdomen is soft. There is no mass. Tenderness: There is no abdominal tenderness. There is no guarding or rebound. Musculoskeletal: General: No tenderness or deformity. Normal range of motion. Cervical back: Normal range of motion and neck supple. Lymphadenopathy: Cervical: No cervical adenopathy. Skin: General: Skin is warm and dry. Coloration: Skin is not pale. Findings: No erythema or rash. Neurological: Mental Status: She is alert and oriented to person, place, and time. GCS: GCS eye subscore is 4. GCS verbal subscore is 5. GCS motor subscore is 6. Cranial Nerves: Cranial nerves 2-12 are intact. Sensory: Sensation is intact. Motor: Motor function is intact. Coordination: Coordination is intact. Coordination normal. Vuepad-Sryu-Uqtzdq Test normal. Diagnostic Testing ED Labs Ordered and Reviewed - No data to display Procedures ED Course / Clinical Impression Clinical Impressions as of 12/29/22 1111 Migraine with aura and without status migrainosus, not intractable Nausea MDM / Disposition / Plan Johanny Fox is a 32-year-old female presenting with migraine headache. Patient was given a migraine cocktail here in the emergency department with significant improvement. On reevaluation her headache was rated as a 0 out of 10. Patient does feel comfortable following up with her primary physician or returning here with any worsening symptoms. She was given return precautions and discharged home Differential Diagnoses - Migraine headache Additional complaint based differ (more content not included)... [facility] 05-31-2022 [facility] HNO ID: [id number] Author: PAWAN Capellan Service: Radiology Author Type: Technologist Type: Allied Health Filed: 05/31/2022 7:48 PM Note Text: Radiology Service Progress Note PATIENT NAME: Johanny Fox DATE OF SERVICE: May 31, 2022 TIME: 7:48 PM PATIENT IDENTITY VERIFICATION COMPLETED USING TWO (2) IDENTIFIERS: Name and Date of confirmed by patient verbally and Name and Date of confirmed by identification band. FALL SCREENING: Has the patient had 2 falls in the last year or 1 fall with injury or currently using an Ambulatory Assistive Device (Walker, Cane, Wheelchair, Crutches, etc.)? Emergency Room Patient: Screened in ED PATIENT GENDER DATA: Female. status: Unknown status: N/A PATIENT RELEVANT IMPLANT DATA REVIEWED: Not Applicable RADIOLOGY DEPARTMENT: Ultrasound PERIPHERAL IV DATA: Not applicable SIGNED BY: PAWAN Capellan May 31, 2022 7:48 PM [facility] HNO ID: [id number] Author: RT Mandy(R) Service: ? Author Type: Technologist Type: Allied Health Filed: 05/31/2022 7:15 PM Note Text: Radiology Service Progress Note PATIENT NAME: Johanny Fox DATE OF SERVICE: May 31, 2022 TIME: 7:15 PM PATIENT IDENTITY VERIFICATION COMPLETED USING TWO (2) IDENTIFIERS: Name and Date of confirmed by patient verbally and Name and Date of confirmed by identification band. FALL SCREENING: Has the patient had 2 falls in the last year or 1 fall with injury or currently using an Ambulatory Assistive Device (Walker, Cane, Wheelchair, Crutches, etc.)? Emergency Room Patient: Screened in ED PATIENT GENDER DATA: Female. status: : No status: NO. PATIENT RELEVANT IMPLANT DATA REVIEWED: Not Applicable RADIOLOGY DEPARTMENT: General X-ray: Exam(s) Completed: Chest X-Ray PERIPHERAL IV DATA: Not applicable SIGNED BY: RT Mandy(R) May 31, 2022 7:15 PM [facility] CBC W Auto Differential pane l (Bld)on 05-31-2022 Basophils (Bld) [#/Vol] 0.04 10*3/uL Normal <0.11 [facility] Comment on above: Order Comment: Speci men Type: BLOOD SPECIMENOrdering Facility: [facility] Address: [address] [address] Performed By: #### 5 7021-8 ####DANA LABORATORYCLIA [id number] [address] [place] Basophils/100 WBC (Bld) 0.4 % [facility] Comment on above: Order Comment: Speci men Type: BLOOD SPECIMENOrdering Facility: [facility] Address: [address] [address] Performed By: #### 5 7021-8 ####MENDOZA LABORATORYCLIA [id number] [address] Differential cell count method Nom (Bld) Auto Normal [facility] Comment on above: Order Comment: Speci men Type: BLOOD SPECIMENOrdering Facility: [facility] Address: [address] [address] Performed By: #### 5 7021-8 ####MENDOZA LABORATORYCLIA [id number] [place] [address] [place] Eosinophils (Bld) [#/Vol] 0.06 10*3/uL Normal <0.46 [facility] Comment on above: Order Comment: Speci men Type: BLOOD SPECIMENOrdering Facility: [facility] Address: [address] [place] [address] Performed By: #### 5 7021-8 ####MENDOZA LABORATORYCLIA [id number] [address] Eosinophils/100 WBC (Bld) 0.7 % Normal [facility] Comment on above: Order Comment: Speci men Type: BLOOD SPECIMENOrdering Facility: [facility] Address: [address] [place] [address] Performed By: #### 5 7021-8 ####MENDOZA LABORATORYCLIA [id number] [address] [place] Erythrocyte distribution width (RBC) [Ratio] 12.4 % Normal 11.5-15.0 [facility] Comment on above: Order Comment: Speci men Type: BLOOD SPECIMENOrdering Facility: [facility] Address: [address] [address] Performed By: #### 5 7021-8 ####MENDOZA LABORATORYCLIA [id number] [address] Hematocrit (Bld) [Volume fraction] 43.8 % Normal 36.0-46.0 [facility] Comment on above: Order Comment: Speci men Type: BLOOD SPECIMENOrdering Facility: [facility] Address: [address] [address] Performed By: #### 5 7021-8 ####MENDOZA LABORATORYCLIA [id number] [place] [address] [place] Hemoglobin (Bld) [Mass/Vol] 14.7 g/dL Normal 11.5-15.5 [facility] Comment on above: Order Comment: Speci men Type: BLOOD SPECIMENOrdering Facility: [facility] Address: [address] [place] [address] Performed By: #### 5 7021-8 ####M[facility]ZA LABORATORYCLIA [id number] [place] [address] [place] Immature granulocytes (Bld) [#/Vol] 0.03 10*3/uL Normal <0.10 [facility] Comment on above: Order Comment: Speci men Type: BLOOD SPECIMENOrdering Facility: [facility] Address: [address] [place] [address] Performed By: #### 5 7021-8 ####MEND[facility]ZA LABORATORYCLIA [id number] [address] [place] Immature granulocytes/100 WBC (Bld) 0.3 % Normal [facility] Comment on above: Order Comment: Speci men Type: BLOOD SPECIMENOrdering Facility: [facility] Address: [address] [place] [address] Performed By: #### 5 7021-8 ####MENDOZA LABORATORYCLIA [id number] [place] [address] [place] Lymphocytes (Bld) [#/Vol] 2.63 10*3/uL Normal 1.00-4.00 [facility] Comment on above: Order Comment: Speci men Type: BLOOD SPECIMENOrdering Facility: [facility] Address: [address] [place] [address] Performed By: #### 5 7021-8 ####MEND[facility]ZA LABORATORYCLIA [id number] [address] [place] Lymphocytes/100 WBC (Bld) 28.7 % Normal [facility] Comment on above: Order Comment: Speci men Type: BLOOD SPECIMENOrdering Facility: [facility] Address: [address] [place] [address] Performed By: #### 5 7021-8 ####MEND[facility]ZA LABORATORYCLIA [id number] [address] MCH (RBC) [Entitic mass] 31.1 pg Normal 26.0-34.0 [facility] Comment on above: Order Comment: Speci men Type: BLOOD SPECIMENOrdering Facility: [facility] Address: [address] [place] [address] Performed By: #### 5 7021-8 ####MENDOZA LABORATORYCLIA [id number] [address] MCHC (RBC) [Mass/Vol] 33.6 g/dL Normal 30.5-36.0 [facility] Comment on above: Order Comment: Speci men Type: BLOOD SPECIMENOrdering Facility: [facility] Address: [address] [place] [address] Performed By: #### 5 7021-8 ####MENDOZA LABORATORYCLIA [id number] [address] MCV (RBC) [Entitic vol] 92.6 fL Normal 80.0-100.0 [facility] Comment on above: Order Comment: Speci men Type: BLOOD SPECIMENOrdering Facility: [facility] Address: [address] [place] [address] Performed By: #### 5 7021-8 ####MENDOZA LABORATORYCLIA [id number] [address] Monocytes (Bld) [#/Vol] 0.46 10*3/uL Normal <0.87 [facility] Comment on above: Order Comment: Speci men Type: BLOOD SPECIMENOrdering Facility: [facility] Address: [address] [place] [address] Performed By: #### 5 7021-8 ####MEND[facility]ZA LABORATORYCLIA [id number] [address] Monocytes/100 WBC (Bld) 5.0 % Normal [facility] Comment on above: Order Comment: Speci men Type: BLOOD SPECIMENOrdering Facility: [facility] Address: [address] [address] Performed By: #### 5 7021-8 ####MEND[facility]ZA LABORATORYCLIA [id number] [place] [address] [place] Neutrophils (Bld) [#/Vol] 5.93 10*3/uL Normal 1.45-7.50 [facility] Comment on above: Order Comment: Speci men Type: BLOOD SPECIMENOrdering Facility: [facility] Address: [address] [address] Performed By: #### 5 7021-8 ####MEND[facility]ZA LABORATORYCLIA [id number] [place] [address] [place] Neutrophils/100 WBC (Bld) 64.9 % Normal [facility] Comment on above: Order Comment: Speci men Type: BLOOD SPECIMENOrdering Facility: [facility] Address: [address] [address] Performed By: #### 5 7021-8 ####MEND[facility]ZA LABORATORYCLIA [id number] [place] [address] [place] Nucleated RBC (Bld) [#/Vol] 10*3/uL Normal <0.01 [facility] Comment on above: Order Comment: Speci men Type: BLOOD SPECIMENOrdering Facility: [facility] Address: [address] [place] [address] Performed By: #### 5 7021-8 ####MENDOZA LABORATORYCLIA [id number] [address] [place] Nucleated RBC/100 WBC (Bld) [Ratio] 0.0 /100 WBC Normal [facility] Comment on above: Order Comment: Speci men Type: BLOOD SPECIMENOrdering Facility: [facility] Address: [address] [address] Performed By: #### 5 7021-8 ####MEND[facility]ZA LABORATORYCLIA [id number] [place] [address] [place] Platelet mean volume (Bld) [Entitic vol] 8.5 fL Low 9.0-12.7 [facility] Comment on above: Order Comment: Speci men Type: BLOOD SPECIMENOrdering Facility: [facility] Address: [address] [place] [place] [address] Performed By: #### 5 7021-8 ####MEND[facility]ZA LABORATORYCLIA [id number] [address] Platelets (Bld) [#/Vol] 325 10*3/uL Normal 150-400 [facility] Comment on above: Order Comment: Speci men Type: BLOOD SPECIMENOrdering Facility: [facility] Address: [address] [place] [address] Performed By: #### 5 7021-8 ####MEND[facility]ZA LABORATORYCLIA [id number] [address] [place] RBC (Bld) [#/Vol] 4.73 10*6/uL Normal 3.90-5.20 [facility] Comment on above: Order Comment: Speci men Type: BLOOD SPECIMENOrdering Facility: [facility] Address: [address] [place] [address] Performed By: #### 5 7021-8 ####M[facility] LABORATORYCLIA [id number] [address] WBC (Bld) [#/Vol] 9.15 10*3/uL Normal 3.70-11.00 [facility] Comment on above: Order Comment: Speci men Type: BLOOD SPECIMENOrdering Facility: [facility] Address: [address] [place] [address] Performed By: #### 5 7021-8 ####MEND[facility]ZA LABORATORYCLIA [id number] [address] [place] Comprehensive metabolic 2000 panelon 05-31-2022 Albumin [Mass/Vol] 4.6 g/dL Normal 3.9-4.9 [facility] Comment on above: Order Comment: Speci men Type: BLOOD SPECIMENOrdering Facility: [facility] Address: [address] [place] [address] Performed By: #### 2 4323-8, [id number], 01471-4 ####M[facility] LABORATORYCLIA [id number] [address] ALP [Catalytic activity/Vol] 58 U/L Normal 34-123 [facility] Comment on above: Order Comment: Speci men Type: BLOOD SPECIMENOrdering Facility: [facility] Address: [address] [place] [address] Performed By: #### 2 4323-8, [id number], ####M[facility] LABORATORYCLIA [id number] [address] [place] ALT [Catalytic activity/Vol] 10 U/L Normal 7-38 [facility] Comment on above: Order Comment: Speci men Type: BLOOD SPECIMENOrdering Facility: [facility] Address: [address] [place] [address] Performed By: #### 2 4323-8, [id number], ####M[facility] LABORATORYCLIA [id number] [address] STATES [facility] Anion gap [Moles/Vol] 8 mmol/L Low 9-18 [facility] Comment on above: Order Comment: Speci men Type: BLOOD SPECIMENOrdering Facility: [facility] Address: [address] [place] [address] Performed By: #### 2 4323-8, [id number], ####M[facility]ZA LABORATORYCLIA [id number] [address] STATES OF [facility] AST [Catalytic activity/Vol] 15 U/L Normal 13-35 [facility] Comment on above: Order Comment: Speci men Type: BLOOD SPECIMENOrdering Facility: [facility] Address: [address] [address] Performed By: #### 2 4323-8, [id number], ####M[facility] LABORATORYCLIA [id number] [address] [place] Bilirubin [Mass/Vol] 0.3 mg/dL Normal 0.2-1.3 [facility] Comment on above: Order Comment: Speci men Type: BLOOD SPECIMENOrdering Facility: [facility] Address: [address] [address] Performed By: #### 2 4323-8, [id number], ####M[facility] LABORATORYCLIA [id number] [place] [address] [place] Calcium [Mass/Vol] 9.5 mg/dL Normal 8.5-10.2 [facility] Comment on above: Order Comment: Speci men Type: BLOOD SPECIMENOrdering Facility: [facility] Address: [address] [place] [address] Performed By: #### 2 4323-8, [id number], ####M[facility] LABORATORYCLIA [id number] [place] [address] [place] Chloride [Moles/Vol] 104 mmol/L Normal 97-105 [facility] Comment on above: Order Comment: Speci men Type: BLOOD SPECIMENOrdering Facility: [facility] Address: [address] [place] [address] Performed By: #### 2 4323-8, [id number], ####M[facility] LABORATORYCLIA [id number] [place] [address] [place] CO2 [Moles/Vol] 27 mmol/L Normal 22-30 [facility] Comment on above: Order Comment: Speci men Type: BLOOD SPECIMENOrdering Facility: [facility] Address: [address] [place] [address] Performed By: #### 2 4323-8, [id number], ####M[facility] LABORATORYCLIA [id number] [place] [address] [place] Creatinine [Mass/Vol] 0.68 mg/dL Normal 0.58-0.96 [facility] Comment on above: Order Comment: Speci men Type: BLOOD SPECIMENOrdering Facility: [facility] Address: [address] [place] [address] Performed By: #### 2 4323-8, [id number], ####M[facility] LABORATORYCLIA [id number] [place] [address] [place] ESTIMATED GLOMERULAR FILTRATION RATE 120 mL/min/1.73m??? Normal >=60 [facility] Comment on above: Order Comment: Franky reynolds Type: BLOOD SPECIMENOrdering Facility: [facility] Address: [address] [phone] Result Comment: Claudia mated Glomerular Filtration Rate (eGFR) is calculated using the 2020 CKD-EPI creatinine equation. This equation utilizes serum creatinine, sex, and age as parameters. The creatinine assay has traceable calibration to isotope dilution-mass spectrometry. Refer to KDIGO guidelines for clinical interpretation. In patients with unstable renal function, e.g. those with acute kidney injury, the eGFR may not accurately reflect actual GFR. Performed By: #### 2 4323-8, [id number], ####M[facility] LABORATORYCLIA [id number] [place] [id number] [place] Glucose [Mass/Vol] 88 mg/dL Normal 74-99 [facility] Comment on above: Order Comment: Franky reynolds Type: BLOOD SPECIMENOrdering Facility: [facility] Address: [address] Result Comment: The [place] Diabetes [employer] (ADA) provides guidance for cutoff values for fasting glucose and random glucose. The ADA defines fasting as no caloric intake for at least 8 hours. Fasting plasma glucose results between 100 to 125 mg/dL indicate increased risk for diabetes (prediabetes). Fasting plasma glucose results greater than or equal to 126 mg/dL meet the criteria for diagnosis of diabetes. In the absence of unequivocal hyperglycemia, results should be confirmed by repeat testing. In a patient with classic symptoms of hyperglycemia or hyperglycemic crisis, random plasma glucose results greater than or equal to 200 mg/dL meet the criteria for diagnosis of diabetes. Reference: Standards of Medical Care in Diabetes 2016, [place] [employer]. Diabetes Care. 2016.39(Suppl 1). Performed By: #### 2 4323-8, [id number], ####M[facility]ZA LABORATORYCLIA [id number] [place] [address] [place] Potassium [Moles/Vol] 4.5 mmol/L Normal 3.7-5.1 [facility] Comment on above: Order Comment: Farnky reynolds Type: BLOOD SPECIMENOrdering Facility: [facility] Address: [address] [place] [address] Performed By: #### 2 4323-8, [id number], ####M[facility] LABORATORYCLIA [id number] [address] Protein [Mass/Vol] 7.2 g/dL Normal 6.3-8.0 [facility] Comment on above: Order Comment: Speci men Type: BLOOD SPECIMENOrdering Facility: [facility] Address: [address] [place] [address] Performed By: #### 2 4323-8, [id number], ####M[facility] LABORATORYCLIA [id number] [address] Sodium [Moles/Vol] 139 mmol/L Normal 136-144 [facility] Comment on above: Order Comment: Speci men Type: BLOOD SPECIMENOrdering Facility: [facility] Address: [address] [place] [address] Performed By: #### 2 4323-8, [id number], ####M[facility] LABORATORYCLIA [id number] [address] Urea nitrogen [Mass/Vol] 6 mg/dL Low 7-21 [facility] Comment on above: Order Comment: Speci men Type: BLOOD SPECIMENOrdering Facility: [facility] Address: [address] [place] [address] Performed By: #### 2 4323-8, [id number], ####M[facility] LABORATORYCLIA [id number] [address] D dimer FEU PPP-mCncon 05-31 Fibrin D-dimer FEU (PPP) [Mass/Vol] 280 ng/mL FEU Normal <500 [facility] Comment on above: Order Comment: Speci men Type: BLOOD SPECIMENOrdering Facility: [facility] Address: [address] [place] [address] Performed By: #### 4 8065-7 ####MEND[facility]ZA LABORATORYCLIA [id number] [address] [place] ECG COMPLETEon 05-31-2022 ECG COMPLETE Ventricular Rate : 6 9 BPM Atrial Rate : 69 BPM P-R Interval : 114 ms QRS Duration : 76 ms Q-T Interval : 370 ms QTC Calculation(Bazett) : 396 ms Calculated P [place] : 55 degrees Calculated R [place] : 86 degrees Calculated T [place] : 65 degrees NORMAL SINUS RHYTHM NORMAL ECG 1618 NO STEMI Confirmed by JAGDISH NELSON MD ([id number]), editor publications WALE RIVERA ([id number]) on 06/01/2022 6:30:40 AM NAME : JOHANNY FOX PID : [id number] : 1990 Gender : Female Race : ORD : [id number] Procedure Date : May 31 2022 15:45:32 Edit Date : Jun 01 2022 06:30:44 Diagnosis: NORMAL SINUS RHYTHM NORMAL ECG 1618 NO STEMI Confirmed by JAGDISH NELSON MD ([id number]), editor publications WALE RIVERA ([id number]) on 06/01/2022 6:30:40 AM Test Reason : Chest Pain Location : 1 : ER Overread By : JAGDISH NELSON MD Edited By : WALE RIVERA Referred By : , Acquired by : KAROLINA, [facility] ED NOTEon 05-31-2022 ED NOTE HNO ID: [id number] Author: Dipti Maier RN Service: ? Author Type: Registered Nurse Type: ED Notes Filed: 05/31/2022 8:42 PM Note Text: Discharge instructions d/w pt at bedside. Stated understanding with no further questions for this nurse. Encouraged f/u with PCP and referring doctors given. Stated understanding. [facility] ED PROV NOTEon 05-31-2022 ED PROV NOTE HNO ID: [id number] Author: Michael Finney PA-C Service: ? Author Type: Physician Merchandiser Seasonal Type: ED Provider Notes Filed: 05/31/2022 8:26 PM Note Text: ED Provider Note Patient Name: Johanny Fox : 1990 SERVICE DATE: 05/31/22 History Patient presents with: Chest Pain Leg Pain: Left leg swollen, painful and possible rash Shortness of Breath Dizziness 32-year-old female with PMH of migraines, fibromyalgia presents for chest pain and left leg pain. Patient states that she started getting some lightheadedness today along with some chest pain and a little shortness of breath. She states she feels better now. She states that she has had some left calf pain for the past few days as well. She did not fall or injure herself. Denies any history of DVT/PE. No recent travel or recent hospitalization. Patient states that she noticed that she had mottling of the skin on her left calf that started about a week ago. She is unsure of the cause of this. She has never seen this in the past. She has no numbness or tingling in the leg. No rash, redness, warmth or signs of infection. She has no fevers or chills. No other complaints PAST MEDICAL HISTORY Diagnosis Date Chronic tonsillitis Migraine PAST SURGICAL HISTORY Procedure Laterality Date REMOVAL OF TONSILS,14+ Y/O 11/26/2013 FAMILY HISTORY Problem Relation Age of Onset Heart Father Social History Tobacco Use Smoking status: Every Day Packs/day: 0.20 Types: Cigarettes Smokeless tobacco: Not on file Substance and Sexual Activity Alcohol use: Yes Comment: rarely 1-2 a week Drug use: No Sexual activity: Not on file ALLERGIES No Known Allergies Review of Systems Constitutional: Negative for fatigue and fever. HENT: Negative for congestion. Eyes: Negative for visual disturbance. Respiratory: Positive for chest tightness and shortness of breath. Negative for cough. Cardiovascular: Negative for chest pain. Gastrointestinal: Negative for abdominal pain, diarrhea, nausea and vomiting. Endocrine: Negative for cold intolerance and heat intolerance. Genitourinary: Negative for dysuria, flank pain and hematuria. Musculoskeletal: Positive for myalgias (L leg pain). Negative for arthralgias. Skin: Positive for color change. Negative for rash. Neurological: Positive for light-headedness. Negative for dizziness and headaches. Psychiatric/Behavioral: Negative for confusion. Physical Exam Vitals [05/31/22 1540] BP Pulse Temp Temp src Resp SpO2 Weight Height 115/74 80 37.3 ?C (99.2 ?F) Oral 16 99 % 46.7 kg (103 lb) -- Physical Exam Vitals and nursing note reviewed. Constitutional: General: She is not in acute distress. Appearance: Normal appearance. She is not toxic-appearing. HENT: Head: Normocephalic and atraumatic. Nose: Nose normal. Mouth/Throat: Mouth: Mucous membranes are moist. Eyes: Conjunctiva/sclera: Conjunctivae normal. Cardiovascular: Rate and Rhythm: Normal rate and regular rhythm. Pulses: Normal pulses. Dorsalis pedis pulses are 2+ on the right side and 2+ on the left side. Posterior tibial pulses are 2+ on the right side and 2+ on the left side. Heart sounds: Normal heart sounds. Comments: No edema noted lower extremities. DP and PT pulses 2+ bilaterally. Mild left calf tenderness. No erythema, swelling or warmth. Pulmonary: Effort: Pulmonary effort is normal. No respiratory distress. Breath sounds: Normal breath sounds. Abdominal: General: Bowel sounds are normal. Palpations: Abdomen is soft. Tenderness: There is no abdominal tenderness. Musculoskeletal: General: Normal range of motion. Cervical back: Normal range of motion. Right lower leg: No edema. Left lower leg: No edema. Skin: General: Skin is warm and dry. Capillary Refill: Capillary refill takes less than 2 seconds. Coloration: Skin is mottled (L leg). Comments: Small amount of mottled-looking/discolored skin over left lateral calf. No cyanotic changes. No skin changes anywhere else on the body. No signs of injury. No erythema, warmth or signs of infection. Pulses are intact. Cap refill less than 2 seconds. Neurological: Mental Status: She is alert and oriented to person, place, and time. Psychiatric: Mood and Affect: Mood is anxious. Behavior: Behavior normal. Diagnostic Testing ED Labs Ordered and Reviewed COMP METABOLIC PANEL - Abnormal; Notable for the following components: Result Value Ref Range BUN 6 (*) 7 - 21 mg/dL Anion Gap 8 (*) 9 - 18 mmol/L All other components within normal limits CBC + DIFF - Abnormal; Notable for the following components: MPV 8.5 (*) 9.0 - 12.7 fL All other components within normal limits Narrative: This is an appended report. These results have been appended to a previously verified report. MAGNESIUM BLD - Normal HIGH SENSITIVITY TROPONIN T (INITIAL) - Normal D-DIMER - Normal Narrative: 500 ng/ (more content not included)... Normal [facility] HIGH SENSITIVITY TROPONIN T (INITIAL)on 05-31-2022 HIGH SENSITIVITY LYLE <6 Normal <12 [facility] Comment on above: Order Comment: Speci men Type: BLOOD SPECIMENOrdering Facility: [facility] Address: [address] [phone] Result Comment: When assessing risk for acute coronary syndromes: In patients undergoing blood draw greater than or equal to 2 hours from symptom onset, with history of very low to moderate risk and non-ischemic ECG, an initial hs-Troponin T less than 12 ng/L AND a 1 hour delta hs-Troponin T less than 3 ng/L should be considered very low risk for 30 day MACE. Performed By: #### 2 4323-8, [id number], 15315-9 ####MENDOZA LABORATORYCLIA [id number] [place] [address] [place] HIGH SENSITIVITY TROPONIN T (SECOND)on 05-31-2022 HIGH SENSITIVITY LYLE <6 Normal <12 [facility] Comment on above: Order Comment: Franky reynolds Type: BLOOD SPECIMENOrdering Facility: [facility] Address: [address] [place] [address] Result Comment: When assessing risk for acute coronary syndromes: In patients undergoing blood draw greater than or equal to 2 hours from symptom onset, with history of very low to moderate risk and non-ischemic ECG, an initial hs-Troponin T less than 12 ng/L AND a 1 hour delta hs-Troponin T less than 3 ng/L should be considered very low risk for 30 day MACE. Performed By: #### L [id number] ####MEND[facility]ZA LABORATORYCLIA [id number] [place] [address] [place] Magnesium SerPl-mCncon 05-31 Magnesium [Mass/Vol] 2.0 mg/dL Normal 1.7-2.3 [facility] Comment on above: Order Comment: Franky reynolds Type: BLOOD SPECIMENOrdering Facility: [facility] Address: [address] [place] [address] Performed By: #### 2 4323-8, [id number], 07617-1 ####MEND[facility]ZA LABORATORYCLIA [id number] [place] [address] [place] US DVT LOWER LTon 05-31-2022 US DVT LOWER LT * * *Final Report* * * DATE OF EXAM: May 31 2022 7:35PM MDU 1006 - US DVT LOWER LT / PROCEDURE REASON: Leg deep vein thrombosis (DVT) suspected * * * * Physician Interpretation * * * * EXAMINATION: LEFT LOWER EXTREMITY DEEP VENOUS ULTRASOUND WITH DOPPLER IMAGING CLINICAL HISTORY: Left leg pain TECHNIQUE: Grayscale with compression maneuvers, color Doppler and spectral Doppler imaging of the left proximal deep veins was performed. Grayscale with compression maneuvers of the left peroneal and posterior tibial veins was performed. The left great and small saphenous veins were evaluated at their insertion to the deep system. Comparison images of the right common femoral vein also acquired Images were obtained and stored in a permanent archive. RESULT: There is normal compressibility, color Doppler flow and response to augmentation in the examined deep venous structures of the left lower extremity from the groin to the knee. Color Doppler flow, as well as response to augmentation and compressibility, where adequately visualized, are also normal within the evaluated deep venous structures in the calf. The superficial venous structures are unremarkable, where visualized. Normal evaluation of the comparison right common femoral vein. IMPRESSION: No acute or suspicious sonographic abnormality on the submitted images. No evidence for deep vein thrombus in the left leg, where examined. Tow Bar Driver: CHRIS Transcribe Date/Time: May 31 2022 7:53P Dictated by : LANG MCKINLEY MD This examination was interpreted and the report reviewed and electronically signed by: LANG MCKINLEY MD on May 31 2022 7:58PM EST [id number] [facility] XR CHEST 1V FRONTAL PORTon 1 08-01-2021 XR CHEST 1V FRONTAL PORT * * *Final Report* * * DATE OF EXAM: May 31 2022 7:15PM MDX 5376 - XR CHEST 1V FRONTAL PORT / PROCEDURE REASON: Chest pain, nonspecific * * * * Physician Interpretation * * * * EXAM: XR CHEST 1V FRONTAL PORT Exam Date/Time: 05/31/2022 7:15 PM CLINICAL HISTORY: Chest pain, nonspecific, Shortness of breath Comparison: No available prior. RESULT: Lines, tubes, and devices: None. Lungs and pleura: Bilateral lung hays are clear. No suggestion for pleural effusions or pneumothorax. Cardiomediastinal silhouette: Normal cardiomediastinal silhouette. IMPRESSION: No acute cardiopulmonary process. Tow Bar Driver: Adzuna Transcribe Date/Time: May 31 2022 7:24P Dictated by : LANG MCKINLEY MD This examination was interpreted and the report reviewed and electronically signed by: LANG MCKINLEY MD on May 31 2022 7:24PM EST [id number] [facility] MRI CERVICAL SPINE LEANNE Ramires 10-09-2021 Patient Name: JOHANNY FOX [facility] ACCESSION EXAM DATE/TIME PROCEDURE ORDERING PROVIDER [id number] 10/09/2021 08:27 EDT MRI Spine Cervical w/o Som LENNON, GISELLE Contrast CPT code 16581 Reason For Exam (MRI Spine Cervical w/o Contrast) cervical neck pain Report CLINICAL INFORMATION: Chronic neck pain. MRI cervical spine without contrast: Sagittal T1, turbo spin-echo T2 and T2-weighted inversion recovery and axial T2-weighted gradient echo images are obtained. There is no intrinsic signal or structural abnormality of the cervical spinal cord. There is mild disc desiccation C2-C3 and C3-C4 without significant intervertebral disc narrowing. The other intervertebral this are normally hydrated and well maintained There are no areas of abnormal bone marrow signal intensity. There is a generally capacious cervical spinal canal. C3-C4: Disc bulge or small broad protrusion effacing the CSF in the ventral aspect of the thecal sac and abutting but not flattening or deflecting the spinal cord. No neural foraminal narrowing. No disc bulge or protrusion is seen at any other cervical or included upper thoracic intervertebral disc level. There is no evidence of significant spinal canal or obvious neural foraminal narrowing at the other levels. IMPRESSION: 1. Mild disc desiccation at C2-C3 and C3-C4 without significant intervertebral disc narrowing. 2. C3-C4 disc bulge or small broad protrusion abutting but not flattening or deflecting the spinal cord. No neural foraminal narrowing. 3. Otherwise negative examination. Report Dictated on --- Final --- Dictated: 10/09/2021 8:26 am Dictating Physician: MD LEBRON HARLAN Signed Date and Time: 10/09/2021 8:37 am Signed by: MD LEBRON HARLAN Transcribed Date and Time: 10/09/2021 8:26 [facility] Asim Lebron MD - 10/09/2021 [id number] ACCESSION EXAM DATE/TIME PROCEDURE ORDERING PROVIDER [id number] 10/09/2021 08:27 EDT MRI Spine Cervical w/o Som LENNON, GISELLE Contrast CPT code 29287 Reason For Exam (MRI Spine Cervical w/o Contrast) cervical neck pain Report CLINICAL INFORMATION: Chronic neck pain. MRI cervical spine without contrast: Sagittal T1, turbo spin-echo T2 and T2-weighted inversion recovery and axial T2-weighted gradient echo images are obtained. There is no intrinsic signal or structural abnormality of the cervical spinal cord. There is mild disc desiccation C2-C3 and C3-C4 without significant intervertebral disc narrowing. The other intervertebral this are normally hydrated and well maintained There are no areas of abnormal bone marrow signal intensity. There is a generally capacious cervical spinal canal. C3-C4: Disc bulge or small broad protrusion effacing the CSF in the ventral aspect of the thecal sac and abutting but not flattening or deflecting the spinal cord. No neural foraminal narrowing. No disc bulge or protrusion is seen at any other cervical or included upper thoracic intervertebral disc level. There is no evidence of significant spinal canal or obvious neural foraminal narrowing at the other levels. IMPRESSION: 1. Mild disc desiccation at C2-C3 and C3-C4 without significant intervertebral disc narrowing. 2. C3-C4 disc bulge or small broad protrusion abutting but not flattening or deflecting the spinal cord. No neural foraminal narrowing. 3. Otherwise negative examination. Report Dictated on --- Final --- Dictated: 10/09/2021 8:26 am Dictating Physician: MD LEBRON HARLAN Signed Date and Time: 10/09/2021 8:37 am Signed by: MD LEBRON HARLAN Transcribed Date and Time: 10/09/2021 8:26 [facility] Work Phone: Radiology Study observation (narrative) [facility] Work Phone: MRI CERVICAL SPINE WO CONTRA STOrdered By: Asim Lebron on 10-09-2021 [facility] Work Phone: MRI Spine Cervical w/o Contr azeem 10-09-2021 MRI Spine Cervical w/o Contrast Patient Name: JOHANNY FOX [facility]#: [id number] Magnetic Resonance Imaging ACCESSION EXAM DATE/TIME PROCEDURE ORDERING PROVIDER [id number] 10/09/2021 08:27 EDT MRI Spine Cervical w/o Som LENNON, GISELLE Contrast CPT code 20868 Reason For Exam (MRI Spine Cervical w/o Contrast) cervical neck pain Report CLINICAL INFORMATION: Chronic neck pain. MRI cervical spine without contrast: Sagittal T1, turbo spin-echo T2 and T2-weighted inversion recovery and axial T2-weighted gradient echo images are obtained. There is no intrinsic signal or structural abnormality of the cervical spinal cord. There is mild disc desiccation C2-C3 and C3-C4 without significant intervertebral disc narrowing. The other intervertebral this are normally hydrated and well maintained There are no areas of abnormal bone marrow signal intensity. There is a generally capacious cervical spinal canal. C3-C4: Disc bulge or small broad protrusion effacing the CSF in the ventral aspect of the thecal sac and abutting but not flattening or deflecting the spinal cord. No neural foraminal narrowing. No disc bulge or protrusion is seen at any other cervical or included upper thoracic intervertebral disc level. There is no evidence of significant spinal canal or obvious neural foraminal narrowing at the other levels. IMPRESSION: 1. Mild disc desiccation at C2-C3 and C3-C4 without significant intervertebral disc narrowing. 2. C3-C4 disc bulge or small broad protrusion abutting but not flattening or deflecting the spinal cord. No neural foraminal narrowing. 3. Otherwise negative examination. Report Dictated on Final Dictated: 10/09/2021 8:26 am Dictating Physician: MD LEBRON HARLAN Signed Date and Time: 10/09/2021 8:37 am Signed by: MD LEBRON HARLAN Transcribed Date and Time: 10/09/2021 8:26 Normal [facility] Office Visit (Urgent Care)on 01-05-2021 Follow-up visit Diagnoses/Problems Assessed Torticollis (723.5) (M43.6) Orders Torticollis Start: Cyclobenzaprine HCl - 10 MG Oral Tablet; TAKE 1 TABLET 3 TIMES DAILY Rx By: Feroz Cole; Dispense: 5 Days ; #:15 Tablet; Refill: 0;For: Torticollis; LEEANNE = N; Sent To: [facility] [address] [place], Start: Naproxen 500 MG Oral Tablet; TAKE 1 TABLET EVERY 12 HOURS WITH FOOD Rx By: Feroz Cole; Dispense: 10 Days ; #:20 Tablet; Refill: 0;For: Torticollis; LEEANNE = N; Sent To: [facility]- [place], Patient Discussion/Summary Please see your primary care physician in 5 days. as needed Alternate heat and ice to the affected area 4 times daily with massage. Seek follow-up medical care if symptoms worsen or do not resolve. Chief Complaint Chief Complaints Back Pain Neck Pain History of Present Illness 30-year-old female who 2 days ago was moving some furniture. The next morning she awakened with pain and stiffness in her neck and upper back. Symptoms have persisted. She notes pain at a 7 out of 10 level. It is worse with neck movement. No new numbness or tingling. She tried ssav-vsp-cektxan naproxen. Review of systems is otherwise negative for constitutional, ear nose and throat, neck, heart, lungs, and abdomen. Review of Systems Constitutional: as noted in HPI. 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 Propranolol HCl - 10 MG Oral Tablettake 1 tab twice daily SUMAtriptan Succinate 50 MG Oral TabletTAKE 1 TABLET FOR MIGRAINE RELIEF. MAY REPEAT EVERY 2 HOURS. MAX 200MG/DAY. Vitals Vital Signs Recorded: [id number] 09:34AM Ijkzxeshrvz03 F Heart Rate79 Ainznzrbeju20 Dnevbyfl59 Alevzykfb23 Height5 ft 1 in Otnsna935 lb BMI Wftiiyjihx04.27 kg/m2 BSA Calculated1.42 Tobacco Usea) Yes O2 Xucbdfjatt20 Pain Scale7 Physical Exam Patient appears in moderate distress and is well-hydrated. Vital signs noted. Examination of the heart and lungs is normal. Examination of the neck reveals no spinal tenderness. There is left greater than right paracervical and trapezius soft tissue tenderness with spasm. Range of motion is markedly limited in all directions. Shoulder range of motion is normal. Signatures Electronically signed by : Feroz Cole MD; Jan 05 2021 9:43AM EST (Author) Normal [facility] Tobacco Screening.on 021 Tobacco use status [facility] a) Yes [facility] Work Phone: XR KNEE LEFT (MIN 4 VIEWS)on 05-14-2020 Patient Name: JOHANNY FOX ---Diagnostic Radiology--- Exam Date/Time 05/14/2020 10:51:22 EST Exam CR Knee Complete 4+ Views Left Ordering Physician KENDALL GOLDSMITH Accession Number [id number] CPT4 Codes 79322 () Reason For Exam Pain in left knee Report LEFT KNEE, 4 VIEWS: CLINICAL INDICATION: Left knee pain COMPARISON: No prior studies are available for comparison. Frontal, lateral, sunrise and tunnel views of the left knee were obtained. The bone density appears normal. No fracture or dislocation is noted. The joint spaces are within normal limits. There are no significant soft tissue abnormalities. No joint effusion is appreciated. IMPRESSION: Negative examination of the knee. Report Dictated on --- Final --- Dictated: 05/14/2020 12:08 pm Dictating Physician: DO JAIMES ALFRED Signed Date and Time: 05/14/2020 12:09 pm Signed by: DO JAIMES ALFRED Transcribed Date and Time: 05/14/2020 12:08 [facility], [place], [facility] Incoming Radiology Results From [facility] - 05/14/2020 12:10 PM EST Patient Name: JOHANNY FOX ---Diagnostic Radiology--- Exam Date/Time 05/14/2020 10:51:22 EST Exam CR Knee Complete 4+ Views Left Ordering Physician KENDALL GOLDSMITH Accession Number [id number] CPT4 Codes 40531 () Reason For Exam Pain in left knee Report LEFT KNEE, 4 VIEWS: CLINICAL INDICATION: Left knee pain COMPARISON: No prior studies are available for comparison. Frontal, lateral, sunrise and tunnel views of the left knee were obtained. The bone density appears normal. No fracture or dislocation is noted. The joint spaces are within normal limits. There are no significant soft tissue abnormalities. No joint effusion is appreciated. IMPRESSION: Negative examination of the knee. Report Dictated on --- Final --- Dictated: 05/14/2020 12:08 pm Dictating Physician: DO JAIMES ALFRED Signed Date and Time: 05/14/2020 12:09 pm Signed by: DO JAIMES ALFRED Transcribed Date and Time: 05/14/2020 12:08 [facility], [place] 2018 CORONAVIRUSon 2018 CORONAVIRUS COVID 19 SOURCE AUTOMOTIVE UPHOLSTERER: UPPER RESPIRATORY TRACT SWAB COVID 19 RESULT AUTOMOTIVE UPHOLSTERER: Negative for COVID19 (SARS CoV2) by PCR. This test was developed and its performance characteristics determined by [facility] [place]. This test has been authorized by FDA under an Emergency Use Authorization (EUA). This test has been validated in accordance with the FDA's Guidance Document "Policy for Diagnostics Testing in Laboratories Certified to Perform High Complexity Testing under CLIA prior to Emergency use Authorization for Coronavirus Disease 2019 during the Public Health Emergency" issued on August 18, 2019. Normal [facility] Comment on above: Performed By: #### C OVID #### [facility] CLIA [id number] [place] [address] ED PROV NOTEon 04-14-2020 ED PROV NOTE HNO ID: [id number] Author: Leland Cabrera MD Service: Emergency Medicine Author Type: Physician Type: ED Provider Notes Filed: 04/14/2020 6:01 PM Note Text: ED Provider Note Patient Name: Johanny Fox SERVICE DATE: 04/14/20 History Patient presents with: Covid19 Concern: symptoms started . + sore throat, sinus pressure, and chest tightness that is worse speaking and ambulating. Low grade fever at home. ( 99.4). Called her PCP today and was advised to come here for possible covid. HPI 29 year old female presenting to ED today for evaluation of upper respiratory symptoms. She endorses 3 days of congestion, sore throat, sinus pressure which has become mildly productive cough (unknown sputum color). Has some chest tightness in anterior chest that worsens with cough and on palpation of anterior chest. Temp of 99.5 at home, taking doses of tylenol intermittent for symptoms. Called PCP and sent to ED for further evaluation. PCP was concerned for COVID per patient and sent to ED for testing. She denies pain or difficulty swallowing. Denies sore throat now. No abdominal pain, nausea, vomiting, diarrhea, or GI symptoms. No known sick contacts. 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 LMP 3 weeks ago. PAST MEDICAL HISTORY Diagnosis Date - Chronic tonsillitis PAST SURGICAL HISTORY Procedure Laterality Date - REMOVAL OF TONSILS,12+ Y/O 11/26/2013 FAMILY HISTORY Problem Relation Age of Onset - Heart Father Social History Tobacco Use - Smoking status: Current Every Day Smoker Packs/day: 0.20 Types: Cigarettes Substance and Sexual Activity - Alcohol use: Yes Comment: rarely 1-2 a week - Drug use: No - Sexual activity: Not on file ALLERGIES No Known Allergies Review of Systems Constitutional: Positive for appetite change. Negative for chills, fatigue and fever. HENT: Positive for congestion, rhinorrhea and sore throat (resolved). Negative for trouble swallowing and voice change. Eyes: Negative for redness and visual disturbance. Respiratory: Positive for cough. Negative for shortness of breath, wheezing and stridor. Cardiovascular: Negative for chest pain and palpitations. Gastrointestinal: Negative for abdominal pain, nausea and vomiting. Genitourinary: Negative for decreased urine volume and dysuria. Musculoskeletal: Negative for back pain, gait problem and neck pain. Skin: Negative for color change, rash and wound. Neurological: Negative for dizziness, weakness and headaches. Hematological: Negative for adenopathy. Does not bruise/bleed easily. Physical Exam BP 99/64 Pulse 77 Temp 98.6 Resp 16 Ht 5' 1" (1.55m) Wt 100 lb (45.4kg) SpO2 98% LMP 03/24/2015 BMI 18.90 kg/(m2). Physical Exam Vitals signs and nursing note reviewed. Constitutional: General: She is not in acute distress. Appearance: She is well-developed. She is not diaphoretic. HENT: Head: Normocephalic and atraumatic. Mouth/Throat: Mouth: Mucous membranes are moist. No oral lesions. Pharynx: Oropharynx is clear. Uvula midline. Posterior oropharyngeal erythema (minimal posterior erythema) present. No pharyngeal swelling or oropharyngeal exudate. Eyes: Conjunctiva/sclera: Conjunctivae normal. Pupils: Pupils are equal, round, and reactive to light. Neck: Musculoskeletal: Normal range of motion and neck supple. Cardiovascular: Rate and Rhythm: Normal rate and regular rhythm. Pulses: Normal pulses. Heart sounds: S1 normal and S2 normal. No murmur. Pulmonary: Effort: Pulmonary effort is normal. No respiratory distress. Breath sounds: Normal breath sounds. No decreased air movement. No wheezing or rales. Chest: Chest wall: Tenderness present. Abdominal: General: There is no distension. Palpations: Abdomen is soft. Tenderness: There is no abdominal tenderness. There is no guarding or rebound. Musculoskeletal: Normal range of motion. General: No deformity. Skin: General: Skin is warm and dry. Capillary Refill: Capillary refill takes less than 2 seconds. Coloration: Skin is not pale. Findings: No erythema or wound. Neurological: Mental Status: She is alert and oriented to person, place, and time. GCS: GCS eye subscore is 4. GCS verbal subscore is 5. GCS motor subscore is 6. Sensory: Sensation is intact. Motor: Motor function is intact. 04/14/20 1712 BP: 99/64 Pulse: 77 Resp: 16 Temp: 37 ?C (98.6 ?F) SpO2: 98% Weight: 45.4 kg (100 lb) Height: 154.9 cm (5' 1") Diagnostic Testing ED Labs Ordered and Reviewed - No data to display Procedures ED Course / Clinical Impression 29 year old female presenting to ED with concern for COVID symptoms. Has had 4-5 days of upper respiratory symptoms as documented above. Denies shortness of breath. She does have anterior chest pain that is reproducible on palpation and worsened with coughing. COVID swab obtained. Patient elected to forgo CXR. She does not have fever, tachypnea, hypoxia, or findings on ausculation to support lobar pneumonia at this point in time. Understands covid discharge instructions and will continue to take OTC medication as needed for symptom relief. Patient discharged from the Emergency Department. I do not feel that the patient's evaluation reveals any acute reason for admission at this time. I instructed them to either follow up with their primary care physician or promptly return to the Emergency Department for reevaluation should symptoms worsen or new symptoms develop. I explained what symptoms would indicate the need to return to the Emergency Department. Shared decision making was used. The patient voiced understanding of the treatment plan and is agreeable to plan. Clinical Impressions as of Apr 14 1801 Viral syndrome MDM / Disposition / Plan MDM The patient was DISCHARGED: Counseled patient regarding suspected diagnosis AND need for follow-up. Discharged home with verbal and written instructions. They were instructed to return as needed for persistent or worsening symptoms or any new concerns. Condition at time of disposition: stable SIGNATURE: MD Leland Delgado MD 04/14/201800 Normal [facility] Office Visit (Neuro-Movement -PD)on 03-07-2020 Follow-up visit Provider Impressions with panic attack vs. seizure vs. ET vs orthostatic tremor Propranolol 10mg take 1-2 tabs as needed for tremor. ( cautious due to her low BP at baseline) avoid TPX due to kidney stones. Patient Discussion/Summary It was a pleasure seeing you today. For migraine/ tremor - Propranolol 10mg take 1 tab twice daily. -- ( potential dizzy/lightheaded) -- try this for 1 month- if headache is Gabapentin could be tried. Please make a follow up appointment in 3 months. Any urgent issues or needing to speak to my or assistant, Denisa- please call [phone], option 6. Diagnoses/Problems Tremor (781.0) (R25.1) Migraine headache (346.90) (G43.839) Orders Renew: Propranolol HCl - 10 MG Oral Tablet; take 1 tab twice daily Chief Complaint tremors f/u. An interactive audio and video telecommunication system which permits real time communications between the patient (at the originating site) and provider (at the distant site) was utilized to provide this telehealth service. Verbal consent was requested and obtained from JOHANNY FOX on this date, 03/07/2020 03:00 PM , for a telehealth visit. History of Present Illness 29 y/o F here for a new evaluation for tremor. referred by ED at [facility]. Due to COVID 19 crisis and need for social distancing as a public health emergency, virtual visit was offered today. The patient was informed about the telehealth clinical encounter including benefits to avoiding travel, limitations of the assessment, and billing for the service. In-office care may be recommended if needed. Telehealth sessions are not being recorded and personal health information is protected. All questions were answered and verbal consent from the patient (or guardian) was obtained to proceed with doximity. MRI brain and EEG was normal . has been overall stable. she has been feeling tired overall. has headaches daily - Propranolol has helped her tremors- within 10-15 minutes Propranolol 10mg 1 tab every other day can help tremor and anxiety. has had about 6 episodes in 2 weeks. no known trigger. went to ER last week for episode of tremor in R hand. subsided in ER. that one lasted 3 - 3/12 hours. she has had 5-6 episodes this morning. she is having more stress lately. Two weeks ago she started - was first involving teeth chattering for a few minutes. beforehand she feels heart racing, feels sweaty before it starts. voice is shaky. after this happens she is exhausted - very tired. longest episode lasts 2 1/2 hours. if she lays flat - it subsides immensely. up to the chest, neck area, feels her muscle karen. goes to right hand. she has L leg tremor currently - she is sitting down, radiates and travels around the neck has cold intolerance. hx migraines. hx of kidney stones. sometimes her head nods a bit in the morning. also has some L ear pain, L temporal pain. had CT head was unremarkable. SH: works in a plant nursery. Personally reviewed with patient- accurate for below - Past Medical, Surgical and Family and Social histories Review of Systems Constitutional: no fever and no unexplained weight loss. Eyes: no diplopia and no vision loss/change. ENMT: no hearing loss and no dizziness/vertigo. Respiratory: no cough and no dyspnea. Cardiovascular: no chest pain and no palpitations. Gastrointestinal: no dysphagia and no bleeding. Genitourinary: no hematuria and no incontinence. Skin: no rashes. Neurological: headaches, but no seizures and no frequent falls. Hematologic/Lymphatic: no excessive bruising. All other systems have been reviewed and are negative for complaint. 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 Propranolol HCl - 10 MG Oral Tablettake 1-2 tabs prn tremor SUMAtriptan Succinate 50 MG Oral TabletTAKE 1 TABLET FOR MIGRAINE RELIEF. MAY REPEAT EVERY 2 HOURS. MAX 200MG/DAY. Physical Exam alert, oriented. face symmetric. speech is clear, fluent. appropriate, conversational. moves all extremities above gravity. no tremor or abnormal movements s (more content not included)... Normal [facility] NR MRI BRAIN W/WO CONTRASTon 02-11-2020 NR MRI BRAIN W/WO CONTRAST Patient Name: JOHANNY FOX STUDY: MRI BRAIN W/WO CONTRAST; 02/11/2020 5:08 pm INDICATION: new onset tremor, ? seizure. COMPARISON: CT head 01/10/2020 ACCESSION NUMBER(S): [id number] ORDERING CLINICIAN: VELASQUEZ JENNINGS TECHNIQUE: Axial T2, FLAIR, DWI and ADC maps, gradient echo T2 and sagittal and coronal T1 weighted images of brain were acquired. Post contrast T1 weighted images were acquired after administration of 9 mL MultiHance gadolinium based intravenous contrast. FINDINGS: The ventricles, sulci and basal cisterns are within normal limits. There is no extra-axial collection. There is noted diffusion restriction abnormality to suggest acute infarction. No focal parenchymal signal abnormality. There is no abnormal region of enhancement. No mass effect or midline shift. The paranasal sinuses and mastoid air cells are clear. The orbital structures are normal. IMPRESSION: No evidence of acute infarction, mass, or intracranial hemorrhage. I personally reviewed the images/study and I agree with the findings as stated. This study was interpreted at [facility], [place], [place]. Electronically signed by: KENDALL DAVID MD Normal [facility] TSH WITH REFLEX TO FREE T4 I F ABNORMALon 01-30-2020 TSH Qn 2.26 m[IU]/L Normal 0.44 - 3.98 [facility] Comment on above: Result Comment: TSH testing is performed using different testing methodology at [facility] than at other [facility]. Direct result comparisons should only be made within the same method. Performed By: #### T HYDS #### [facility] [address] [place] [address] Office Visit (Neuro-Movement )on 01-18-2020 Follow-up visit Diagnoses/Problems Tremor (781.0) (R25.1) Orders Start: Propranolol HCl - 10 MG Oral Tablet; take 1-2 tabs prn tremor EEG, Routine; Status:Hold For - Scheduling; Requested for:[id number]; Start: SUMAtriptan Succinate 50 MG Oral Tablet; TAKE 1 TABLET FOR MIGRAINE RELIEF. MAY REPEAT EVERY 2 HOURS. MAX 200MG/DAY MRI Brain w/wo Contrast; Status:Hold For - Scheduling; Requested for:[id number]; Radiologist to Determine Optimal Study : Y Does the patient have a Cochlear Implant, Pacemaker, Defibrilator, Pacing Wire, Brain Aneurysm Clip, Implanted Nerve or Bone Graft Simulator, Implanted Breast Tissue Network Infrastructure Architect, Glucose Monitor, or Neulasta Device? : No Is the patient or breast feeding? : No What are the patient's signs and symptoms? : new onset tremor, ? seizure TSH WITH REFLEX TO FREE T4 IF ABNORMAL; Specimen Source:Blood (BLD); Status:Active; Requested for:[id number]; Patient Discussion/Summary It was a pleasure seeing you today. I want you to get bloodwork, MRI brain and EEG. can try Propranolol 10mg take 1-2 tabs as needed for tremor. Sumatriptan 50mg, a pill to take when you get a migraine. Potential adverse effects are mild drowsiness and tightness in the jaw. Let me know if it is not effective or if you have trouble tolerating it. Please make a follow up appointment in 2-3 months. Any urgent issues or needing to speak to my or assistant, Denisa- please call [phone], option 6. Provider Impressions with panic attack vs. seizure vs. ET vs orthostatic tremor Propranolol 10mg take 1-2 tabs as needed for tremor. ( cautious due to her low BP at baseline) obtain MRI brain ,EEG , TSH - consider Xanax as needed. very positional. a/w autonomic symptoms may be heart related. avoid TPX due to kidney stones. Chief Complaint tremor evaluation. An interactive audio and video telecommunication system which permits real time communications between the patient (at the originating site) and provider (at the distant site) was utilized to provide this telehealth service. Verbal consent was requested and obtained from JOHANNY FOX on this date, 01/18/2020 09:20 AM , for a telehealth visit. History of Present Illness 29 y/o F here for a new evaluation for tremor. referred by ED at [facility]. Due to COVID 19 crisis and need for social distancing as a public health emergency, virtual visit was offered today. The patient was informed about the telehealth clinical encounter including benefits to avoiding travel, limitations of the assessment, and billing for the service. In-office care may be recommended if needed. Telehealth sessions are not being recorded and personal health information is protected. All questions were answered and verbal consent from the patient (or guardian) was obtained to proceed with doximity. has had about 6 episodes in 2 weeks. no known trigger. went to ER last week for episode of tremor in R hand. subsided in ER. that one lasted 3 - 3/12 hours. she has had 5-6 episodes this morniing. she is having more stress lately. Two weeks ago she started - was first involving teeth chattering for a few minutes. beforehand she feels heart racing, feels sweaty before it starts. voice is shaky. after this happens she is exhausted - very tired. longest episode lasts 2 1/2 hours. if she lays flat - it subsides immensely. up to the chest, neck area, feels her muscle karen. goes to right hand. she has L leg tremor currently - she is sitting down, radiates and travels around the neck has cold inttolerance. hx migraines. hx of kidney stones. had CT head was unremarkable. SH: works in a plant nursery. Personally reviewed with patient- accurate for below - Past Medical, Surgical and Family and Social histories Review of Systems Constitutional: no fever and no unexplained weight loss. Eyes: no diplopia and no vision loss/change. ENMT: no hearing loss and no dizziness/vertigo. Respiratory: no cough and no dyspnea. Cardiovascular: no chest pain and no palpitations. Gastrointestinal: no dysphagia and no bleeding. Genitourinary: no hematuria and no incontinence. Skin: no rashes. Neurological: headaches, but no seizures and no frequent falls. Hematologic/Lymphatic: no excessive bruising. All other systems have been reviewed and are negative for complaint. Active Problems Acute bronchitis (466.0) (J20.9) Acute left otitis media (382.9) (H66.92) Acute UTI (599.0) (N39.0) Fever (780.60) (R50.9) Frequency of urination (788.41) (R35.0) Infection of index finger (686.9) (L08.9) Influenza A (487.1) (J10.1) Laceration of left hand without foreign body, initial encounter (882.0) (S61.412A) Otic barotrauma (993.0) (T70.0XXA) Right forearm injury, initial encounter (959.3) (S59.911A) Viral URI (465.9) (J06.9) Past Medical History History of Acute UTI (599.0) (N39.0) Resolved Date: 15 Sep 2018 Social History Current every day smoker (305.1) (F17.200) Allergies No Known Drug (more content not included)... Normal Cardoz BASIC METABOLIC PANELon 07- Creatinine [Mass/Vol] 0.67 mg/dL Normal 0.50 - 1.05 [facility] Comment on above: Performed By: #### B MP #### [address] [address] GFR- AM. >60 Normal >60 [facility] Comment on above: Result Comment: CALC ULATIONS OF ESTIMATED GFR ARE PERFORMED USING THE MDRD STUDY EQUATION FOR THE IDMS-TRACEABLE CREATININE METHODS. CLIN CHEM 2007;53:766-72 Performed By: #### B MP #### [facility] [address] [place] [address] GFR-NON AM. >60 Normal >60 [facility] Comment on above: Performed By: #### B MP #### [id number] [place] [address] Glucose [Mass/Vol] 108 mg/dL High 74 - 99 [facility] Comment on above: Performed By: #### B MP #### [address] [place] [address] Urea nitrogen [Mass/Vol] 9 mg/dL Normal 6 - 23 [facility] Comment on above: Performed By: #### B MP #### [address] [place] [address] Anion gap [Moles/Vol] 9 mmol/L Low 10 - 20 [facility] Comment on above: Performed By: #### B MP #### [address] [place] [address] Calcium [Mass/Vol] 9.6 mg/dL Normal 8.6 - 10.3 [facility] Comment on above: Performed By: #### B MP #### [address] [place] [address] Chloride [Moles/Vol] 109 mmol/L High 98 - 107 [facility] Comment on above: Performed By: #### B MP #### [address] [place] [address] HCO3 (Bld) [Moles/Vol] 26 mmol/L Normal 21 - 32 [facility] Comment on above: Performed By: #### B MP #### [address] [place] [address] Potassium [Moles/Vol] 3.9 mmol/L Normal 3.5 - 5.3 [facility] Comment on above: Performed By: #### B MP #### [address] [place] [address] Sodium [Moles/Vol] 140 mmol/L Normal 136 - 145 [facility] Comment on above: Performed By: #### B MP #### [address] [place] [address] CBC AND DIFFERENTIALon 01-09 % AUTOMATED IMMATURE GRAN 0.2 % Normal 0.0 - 0.9 [facility] Comment on above: Result Comment: Linette ture Granulocyte Count (IG) includes promyelocytes, myelocytes and metamyelocytes but does not include bands. Percent differential counts (%) should be interpreted in the context of the absolute cell counts (cells/L). Performed By: #### C BCDF #### [facility] [address] [place] [address] Basophils (Bld) [#/Vol] 0.04 10*3/uL Normal 0.00 - 0.10 [facility] Comment on above: Performed By: #### C BCDF #### [facility] [address] [place] [address], [place] [address] Basophils/100 WBC (Bld) 0.5 % Normal 0.0 - 2.0 [facility] Comment on above: Performed By: #### C BCDF #### [address] [address] Eosinophils (Bld) [#/Vol] 0.07 10*3/uL Normal 0.00 - 0.70 [facility] Comment on above: Performed By: #### C BCDF #### [address] [address] Eosinophils/100 WBC (Bld) 0.9 % Normal 0.0 - 6.0 [facility] Comment on above: Performed By: #### C BCDF #### [address] [address] Erythrocyte distribution width (RBC) [Ratio] 12.4 % Normal 11.5 - 14.5 [facility] Comment on above: Performed By: #### C BCDF #### [address] [address] Hematocrit (Bld) [Volume fraction] 45.1 % Normal 36.0 - 46.0 [facility] Comment on above: Performed By: #### C BCDF #### [address] [address] Hemoglobin (Bld) [Mass/Vol] 14.5 g/dL Normal 12.0 - 16.0 [facility] Comment on above: Performed By: #### C BCDF #### [address] [address] Lymphocytes (Bld) [#/Vol] 2.13 10*3/uL Normal 1.20 - 4.80 [facility] Comment on above: Performed By: #### C BCDF #### [address] [address] Lymphocytes/100 WBC (Bld) 26.3 % Normal 13.0 - 44.0 [facility] Comment on above: Performed By: #### C BCDF #### [address] [address] MCHC (RBC) [Mass/Vol] 32.2 g/dL Normal 32.0 - 36.0 [facility] Comment on above: Performed By: #### C BCDF #### [address] [address] MCV (RBC) [Entitic vol] 95 fL Normal 80 - 100 [facility] Comment on above: Performed By: #### C BCDF #### [address] [address] Monocytes (Bld) [#/Vol] 0.53 10*3/uL Normal 0.10 - 1.00 [facility] Comment on above: Performed By: #### C BCDF #### [address] [address] Monocytes/100 WBC (Bld) 6.5 % Normal 2.0 - 10.0 [facility] Comment on above: Performed By: #### C BCDF #### [address] [address] Neutrophils (Bld) [#/Vol] 5.32 10*3/uL Normal 1.20 - 7.70 [facility] Comment on above: Performed By: #### C BCDF #### [address] [address] Neutrophils/100 WBC (Bld) 65.6 % Normal 40.0 - 80.0 [facility] Comment on above: Performed By: #### C BCDF #### [address] [address] Nucleated RBC/100 WBC (Bld) [Ratio] 0.0 /100 WBC Normal 0.0 - 0.0 [facility] Comment on above: Performed By: #### C BCDF #### [address] [address] Platelets (Bld) [#/Vol] 282 10*3/uL Normal 150 - 450 [facility] Comment on above: Performed By: #### C BCDF #### [facility] [address] [place] [address] RBC (Bld) [#/Vol] 4.73 x10E12/L Normal 4.00 - 5.20 [facility] Comment on above: Performed By: #### C BCDF #### [facility] [address] [place] [address] WBC (Bld) [#/Vol] 8.1 10*3/uL Normal 4.4 - 11.3 [facility] Comment on above: Performed By: #### C BCDF #### [address] [address] [address] HEAD WO CONTRASTon 2019 CT HEAD WO CONTRAST Patient Name: JOHANNY FOX STUDY: CT HEAD WO CONTRAST; 01/10/2020 10:59 am INDICATION: tremors, worse RUE, new onset. COMPARISON: None. ACCESSION NUMBER(S): [id number] ORDERING CLINICIAN: PHONG ORTEZ TECHNIQUE: Volume acquisition through the brain with axial coronal and sagittal reformatted 5 mm images. No IV contrast. FINDINGS: INTRACRANIAL: The ventricles are midline in position. Kilpatrick-white matter differentiation is well maintained. There is no evidence of acute infarction or hemorrhage. There is no extra-axial mass or fluid collection. The basilar cisterns are patent. EXTRACRANIAL: The imaged paranasal sinuses are clear. The imaged mastoid air cells are clear. The calvarium is intact. IMPRESSION: 1. There is no evidence of an acute infarction or hemorrhage. Electronically signed by: POWER GUARDADO MD Normal [facility] HCG,URINEon 01-10-2020 Beta HCG ( test) Ql (U) Negative Normal Negative [facility] Comment on above: Performed By: #### H CGU #### [facility] [address] [place] [address] Provider Note - ED v2on 12-19 Provider Note - ED v2 Provider Note - ED v2: Chart Review: ED NOTES ED NOTES: HPI: Patient presents with a tremor of her right arm. Symptoms began today. Yesterday she felt as though she had a tremor of her chest that traveled down to her left lower leg. Those symptoms lasted only a few minutes and then resolved. She denies any headache, visual changes, weakness, or paresthesias. No other neurological symptoms. No prior history of seizures. No recent head injury. No new recent medications or changes. She otherwise states she feels well. No fevers or recent illness. She has no other complaints. ROS: GENERAL: Negative weakness, negative fatigue, negative chills, negative fever, INTEGUMENTARY: Negative rash. NEUROLOGIC: Negative headaches, negative syncope, negative seizures, negative weakness, positive tremor. ENT: Negative sore throat, negative rhinorrhea, negative difficulty swallowing. CARDIOVASCULAR: Negative chest pain, negative dyspnea, negative palpations, negative edema. RESPIRATORY: Negative dyspnea, negative wheezing, negative cough. GASTROINTESTINAL: Negative nausea, negative vomiting, negative hematemesis, negative abdominal pain. GENITOURINARY: Negative frequency, negative urgency, negative dysuria, negative flank pain. MUSCULOSKELETAL: Negative myalgia, negative joint pain, negative stiffness, negative weakness, negative back pain, negative neck pain. PSYCHIATRIC: Negative depression. Negative anxiety. PMH: As listed on the chart, reviewed. PSH: As listed on the chart, reviewed. Social History: As listed on the chart, reviewed. Physical Exam: General: The patient appears well and in no apparent distress. Patient is resting comfortably on cart. Skin: Warm, dry, no pallor noted. No rash. Head: Normocephalic, atraumatic Neck: Supple, nontender, no meningismus. Eye: PERRLA, EOMI ENT: Moist mucus membranes, pharynx within normal limits Cardiovascular: Regular rate and rhythm, no murmurs Respiratory: Patient is in no distress, no accessory muscle use, lungs are clear to auscultation, no wheezing, rales or rhonchi Musculoskeletal: normal ROM, no deformity, no tenderness, no swelling. 2+ radial and DP pulses symmetric. GI: No tenderness to palpation, no masses appreciated. No rebound, guarding, or rigidity noted. Neurological: A&Ox3, normal strength and sensation. Visible shaking R upper extremity up to the forearm - less involvement of the upper arm. Tremor improves with intention with finger-nose testing. GCS 15. NIH = 0. Psychiatric: Cooperative, no SI/HI, no anxiety HISTORY OF PRESENTING ILLNESS JOHANNY is a 29 year old Female and was seen by me at 10-Jan-2020 10:04 for a chief complaint of tremor (New tremor in R arm. Sent here from urgent care.) . Triage Information: Most recent Vital Sign Value Date Temp (F): 100 01-10-2020 09:47 Temp (C): 37.8 01-10-2020 09:47 Heart Rate (beats/min): 114 01-10-2020 09:47 Respirations (breaths/min): 20 01-10-2020 09:47 SpO2 (%): 99 01-10-2020 09:47 BP Systolic (mm Hg): 118 01-10-2020 09:47 BP Diastolic (mm Hg): 70 01-10-2020 09:47 PAST MEDICAL HISTORY ATTESTATION: I have reviewed and confirmed nurse's/medic's notes for patient's medications, allergies, medical history, and surgical history ALLERGIES/INTOLERANCES: No Known Allergies HEALTH HISTORY: No documented data. OUTPATIENT MEDICATIONS: Home Medications Review Status for Reconciliation: N/A Med Status: N/A No documented data. SIGNIFICANT EVENTS: No documented data. TOOL DESIGN ENGINEER: Is : no(1) Is : no(1) MEDICAL DECISION MAKING/ED COURSE MDM/ED COURSE: Blood work overall unremarkable. hCG negative. Urinalysis not consistent with infection. CT imaging of the head shows no acute process. On reevaluation patient's symptoms have resolved. She was observed in the emergency department and they did not recur. I spoke with neurology, Dr. Jennings, who is agreeable that patient symptoms could be consistent with partial seizure activity although patient has no history of it. There is no evidence of stroke at this time and patient is asymptomatic. We agreed the patient could be discharged and follow-up as an outpatient but would be instructed to return with any new, worsening, or recurrent symptoms. I discussed this with the patient and she is agreeable with this plan. She was given neurology referral. Patient was discharged home in stable condition. CLINICAL IMPRESSION Diagnosis/Annotation: ED Dx Name:Tremor observed on examination Code:R25.1 Dispostion: discharged Type: home ATTESTATION CRITICAL CARE TIME Is this a critically ill patient: no Electronic Signatures: Phong Ortez) (Signed 10-Jan-2020 12:30) Authored: Provider Note - ED v2 Last Updated: 10-Jan-2020 12:30 by Phong Ortez) References: 1. Data Referenced From "Triage - ED" 10-Jan-2020 09:47 Normal [facility] Risk Screen - Adult Emergenc yon 01-10-2020 Risk Screen - Adult Emergency Preferred Language: Preferred Language: Preferred Language for Discussing Health Care (patient/designee)Romanian Advanced Directives: Advance Directive/DNRno Family Violence Adult: Abuse Screen: Are you or have you been threatened or abused physically, emotionally, or sexually by anyoneno Learning Assessment (Patient): Learning Assessment (Patient): Patient is Able to be Assessed for Learningyes Factors Influencing Readiness to Learnacuteness of illness Factors that Impact Ability to Learnacuteness of illness Devices/Methods Used to Communicatecommunication board Learning Preferencesindividual instruction Cultural Considerationsnone Developmental Considerationsnone Spiritism Considerationsnone Learning Assessment (Other Learner): Learning Assessment (Other Learner): Other learner availableno Pressure Injury/TB/Substance: Pressure Injury: Pressure Injury Present on Admissionno Do you have a coughno Substance Use Current or Former Historynever: Cigarette/Tobacco, e-Cigarette/Vaping, Alcohol, Street Drugs Admission Risk Screen: Significant IndicatorsComplete CAGE: CAGE: Is this an injured patient at a Trauma Center ([facility]/[place]): no Electronic Signatures: Susan Napoles (DOM) (Signed 10-Jan-2020 10:24) Authored: Preferred Language, Advanced Directives, Family Violence Adult, Learning Assessment (Patient), Learning Assessment (Other Learner), Pressure Injury/TB/Substance, CAGE Last Updated: 10-Jan-2020 10:24 by Susan Napoles (DOM) Normal [facility] Triage - EDon 01-10-2020 Triage - ED Quick Triage: Are You no Have You Given In The Last 6 Weeksno Are You Currently Breastfeedingno The patient and/or guardian verbally acknowledges placement for services into the following (when Urgent Care Service hours are operating):emergency department Chart Review: CHIEF COMPLAINT JOHANNY FOX is a Female patient with a chief complaint of tremor (New tremor in R arm. Sent here from urgent care.). Triage Date/Time: 10-Jan-2020 09:47 Pain Rating (0-10): 0 = None Vital Signs: Temperature: 100.0F ( 37.8C) Blood Pressure: 118/70 Mean: Heart Rate: 114 Respiratory Rate: 20 Pulse Oximetry: 99% Weight: 99.2 pounds. Calculated 45.0 kg. [place] Coma Scale: Best Eye Response: (E4) spontaneous Best Motor Response: (M6) obeys commands Best Verbal Response: (V5) oriented Jossie Score: 15 Cough lasting greater than 3 weeks: no Patient has homicidal thoughts: no WILLIAM: 3 Symptoms Are Negative For: aphasia, ataxia, confusion, diaphoresis, facial droop, headache, numbness, seizure and vomiting. Last Known Well: known Time Last Known Well Date/Time: 09-Jan-2020 08:00 Risk Screens Suicide Risk Screen In the Past Month: Have you wished you were or wished you could go to sleep and not wake up no In the Past Month: Have you had any actual thoughts of killing yourself no In Your Lifetime: Have you ever done anything, started to do anything, or prepared to do anything to end your life no Estrada Fall Scale Screening Has the patient fallen before (or is the patient in the ED as a result of a fall) has not had a fall Does the patient have an impaired gait does not have impaired gait Is the patient cognitively impaired not cognitively impaired Interventions: Sean Fall Interventions: LOW INTERVENTIONS: *patient oriented to surroundings and call system, * patient/family falls education completed and documented, *patients fall status communicated during bedside handoff, *whiteboard updated, *mode of toileting discussed with patient, *bed in low position with brakes locked, *call light in reach, * non-skid footwear PAIN Pain Scale Used: KELLI Pain Rating (0-10): 0 = None ARRIVAL INFORMATION Means of Arrival: Ambulatory Mode of Arrival: private vehicle Arrival From: home PRIMARY ASSESSMENT JOHANNY FOX's primary assessment is Within Defined Limits. The airway is open and patent. Breathing spontaneous and unlabored with clear breath sounds bilaterally. Circulation is normal with good peripheral pulses. Skin is warm and dry and color is normal for race. TRAVEL HISTORY Travel History Coronavirus Screening: no exposure or symptoms Travel Exposure History: NO travel to International locations in the past 30 days Past Medical History: Past Medical History Reviewedyes Electronic Signatures: Claudia Sung (DOM) (Signed 10-Jan-2020 09:50) Authored: Triage, Past Medical History Last Updated: 10-Jan-2020 09:50 by Claudia Sung (DOM) Normal [facility] URINALYSISon 01-10-2020 Appearance (U) CLEAR Normal CLEAR [facility] Comment on above: Performed By: #### U A #### [facility] [address] [place] [address] Bilirubin (U) [Mass/Vol] Negative Normal NEGATIVE [facility] Comment on above: Performed By: #### U A #### [facility] [address] [place], [place] [address] [place] [address] BLOOD Negative Normal NEGATIVE [facility] Comment on above: Performed By: #### U A #### [facility] [address] [place] [address] Color (U) YELLOW Normal STRAW,YELLOW [facility] Comment on above: Performed By: #### U A #### [facility] [address] [place] [address] Glucose [Mass/Vol] Negative Normal NEGATIVE [facility] Comment on above: Performed By: #### U A #### [facility] [address] [place] [address] Ketones Ql (U) Negative Normal NEGATIVE [facility] Comment on above: Performed By: #### U A #### [facility] [address] [place] [address], [place] [address] Leukocyte esterase Test strip Ql (U) Negative Normal NEGATIVE [facility] Comment on above: Performed By: #### U A #### [facility] [address] [place] [address] Nitrite Ql (U) Negative Normal NEGATIVE [facility] Comment on above: Performed By: #### U A #### [facility] [address] [place], [place] [address] [place] [address] pH (Bld) 7.0 Normal 5.0 - 8.0 [facility] Comment on above: Performed By: #### U A #### [facility] [address] [place], [place] [address] [place] [address] Protein (U) [Mass/Vol] Negative Normal NEGATIVE [facility] Comment on above: Performed By: #### U A #### [facility] [address] [place] [address] Specific gravity (U) [Rel density] 1.004 Low 1.005 - 1.035 [facility] Comment on above: Performed By: #### U A #### [facility] [address] [place] [address] Urobilinogen Qn (U) <2.0 Normal 0.0 - 1.9 [facility] Comment on above: Performed By: #### U A #### [id number] [place] [address] Otheron 07-06-2019 Interpreted by: CJ OCAMPO07/06/19 18:45STUDY:Forearm Radiographs; 07/06/2019 and 5:26 pm. INDICATION:Fell against metal post yesterday. COMPARISON:None Available. ORDERING CLINICIAN:RAJINDER ORTIZ DO TECHNIQUE: Two view(s) of the right forearm. FINDINGS: There is no displaced fracture. The alignment is anatomic. No softtissue abnormality is seen. IMPRESSION: No acute osseous abnormality. Signed by Cj Ocampo MDElectronically signed by: CJ OCAMPO 07/06/19 18:45 Normal [facility] Work Phone: Comment on above: ORDER REVISED TO A F OREARM, MIN 2 VIEWS BY RADIOLOGIST Vital Signs Date Time Vital Sign Value Performing Clinician Facility 02-11-2025 08:05-0400 Body height 154.[address] Jeanie Cleveland MD Work Phone: [facility] 02-11-2025 08:05-0400 Body mass index (BMI) [Ratio] 20.7 kg/m2 Dr. Jeanie Cleveland MD Work Phone: [facility] 02-11-2025 08:05-0400 Body weight 49.[address] Jeanie Cleveland MD Work Phone: [facility] 02-11-2025 08:05-0400 Diastolic blood pressure 76 mm[Hg] Dr. Jeanie Cleveland MD Work Phone: [facility] [facility] 02-11-2025 08:05-0400 Heart rate 84 /min Dr. Jeanie Cleveland MD Work Phone: [facility] 02-11-2025 08:05-0400 Systolic blood pressure 99 mm[Hg] Dr. Jeanie Cleveland MD Work Phone: [facility] 01-02-2025 08:29-0400 Body height 157.5 cm Ruth Walter PA-C Work Phone: [facility] 01-02-2025 08:29-0400 Body mass index (BMI) [Ratio] 17.92 kg/m2 Ruth Szalkowski PA-C Work Phone: [facility] 01-02-2025 08:29-0400 Body temperature 97.39 [degF] Ruth Szalkowski PA-C Work Phone: [facility] 01-02-2025 08:29-0400 Body weight 44.45 kg Ruth Szalkowski PA-C Work Phone: [facility] 01-02-2025 08:29-0400 Diastolic blood pressure 63 mm[Hg] Ruth Szalkowski PA-C Work Phone: [facility] 01-02-2025 08:29-0400 Heart rate 71 /min Ruth Szalkowski PA-C Work Phone: [facility] 01-02-2025 08:29-0400 Respiratory rate 16 /min Ruth Szalkowski PA-C Work Phone: [facility] 01-02-2025 08:29-0400 Systolic blood pressure 94 mm[Hg] Ruth Szalkowski PA-C Work Phone: [facility] 10-24-2024 11:25-0400 Body height 157.5 cm Ed Pearson CNP Work Phone: [facility] 10-24-2024 11:25-0400 Body mass index (BMI) [Ratio] 18.47 kg/m2 Ed Rodríguez APRN - DELLA Work Phone: [facility] 10-24-2024 11:25-0400 Body weight 45.81 kg Ed Rodríguez APRN - SUPERVISOR TYPE BAR AND SEGMENT Work Phone: [facility] 10-24-2024 11:25-0400 Diastolic blood pressure 64 mm[Hg] Ed Rodríguez APRN - DELLA Work Phone: [facility] 10-24-2024 11:25-0400 Heart rate 87 /min Ed Rodríguez APRN - DELLA Work Phone: [facility] 10-24-2024 11:25-0400 SaO2% (BldA) [Mass fraction] 99 % Ed Rodríguez APRN - DELLA Work Phone: [facility] 10-24-2024 11:25-0400 Systolic blood pressure 94 mm[Hg] Ed Rodríguez APRN - DELLA Work Phone: [facility] 11-28-2023 09:52-0400 Diastolic blood pressure 60 mm[Hg] Sarahi Makenzie [facility] 11-28-2023 09:52-0400 Heart rate 74 /min Sarahi Makenzie [facility] 11-28-2023 09:52-0400 Respiratory rate 20 /min Sarahi Makenzie [facility] 11-28-2023 09:52-0400 SaO2% (BldA) [Mass fraction] 98 % Sarahi Makenzie [facility] 11-28-2023 09:52-0400 Systolic blood pressure 944 mm[Hg] Sarahi Makenzie [facility] 01-05-2021 09:34-0400 Body height 154.94 cm Jeanie Y Cristofer Work Phone: [facility] Work Phone: 01-05-2021 09:34-0400 Body mass index (BMI) [Ratio] 19.27 kg/m2 Jeanie Y Cristofer Work Phone: [facility] Work Phone: 01-05-2021 09:34-0400 Body surface area Derived from formula 1.42 m2 Jeanie Y Cristofer Work Phone: [facility] Work Phone: 01-05-2021 09:34-0400 Body temperature 97 [degF] Jeanie Y Cristofer Work Phone: [facility] Work Phone: 01-05-2021 09:34-0400 Body weight 46.27 kg Jeanie Y Cristofer Work Phone: [facility] Work Phone: 01-05-2021 09:34-0400 Diastolic blood pressure 62 mm[Hg] Jeanie Y Cristofer Work Phone: [facility] Work Phone: 01-05-2021 09:34-0400 Heart rate 79 /min Jeanie Y Cristofer Work Phone: [facility] Work Phone: 01-05-2021 09:34-0400 Respiratory rate 14 /min Jeanie Y Cristofer Work Phone: [facility] Work Phone: 01-05-2021 09:34-0400 SaO2% (BldA) [Mass fraction] 97 % Jeanie Y Cristofer Work Phone: [facility] Work Phone: 01-05-2021 09:34-0400 Systolic blood pressure 96 mm[Hg] Jeanie Hayes Cristofer Work Phone: [facility] Work Phone: 01-05-2021 09:34-0400 7 1 Jeanie Hayes Cristofer Work Phone: [facility] Work Phone: Comment on above: [employer] 07-06-2019 19:07-0500 BMI (Body Mass Index) 19.84 kg/m2 Phong Kelley [facility] Work Phone: 07-06-2019 19:07-0500 Body Temperature 97.8 [degF] Phong Kelley [facility] Work Phone: 07-06-2019 19:07-0500 Body weight 47.63 kg Phong Kelley [facility] Work Phone: 07-06-2019 19:07-0500 BP Diastolic 65 mm[Hg] Phong Kelley [facility] Work Phone: 07-06-2019 19:07-0500 BP Systolic 102 mm[Hg] Phong Kelley [facility] Work Phone: 07-06-2019 19:07-0500 BSA (Body Surface Area) 1.44 m2 Phong Kelley [facility] Work Phone: 07-06-2019 19:07-0500 Height 154.94 cm Phong Kelley [facility] Work Phone: 07-06-2019 19:07-0500 Pulse (Heart Rate) 83 /min Phong Kelley [facility] Work Phone: 07-06-2019 19:07-0500 Pulse Oximetry 6 % Phong Kelley [facility] Work Phone: 07-06-2019 19:07-0500 Respiratory Rate 16 /min Phong Kelley [facility] Work Phone: 07-06-2019 19:07-0500 4.3125 1 Phong Kelley [facility] Work Phone: Comment on above: Pain Scale Encounters Encounter Date Encounter Type Care Provider Facility Start: 03-08-2025 ambulatory Gabby August Facility: [facility] Start: 02-11-2025 End: 02-11-[address] Gabby August MD -[facility] Work Phone: Start: 02-11-2025 End: 02-11-[address] Jeanie Cleveland MD Work Phone: -[facility] Start: 01-02-2025 End: 01-02-2025 [facility] Start: 01-02-2025 End: 01-02-2025 Encounter for general adult medical examination without abnormal findings [facility] Start: 01-02-2025 End: 01-02-2025 Initial preventive medicine new pt age 18-39yrs Ruth Walter PA-C Work Phone: [facility] Rhys Miguel Comment on above: Encounter to [facility] with new provider (Primary Dx); Annual physical exam; Tobacco use; Screening, lipid; Screening for endocrine disorder; Screening, anemia, deficiency, iron Start: 01-02-2025 End: 01-02-2025 Patient encounter procedure Ruth Walter PA-C Work Phone: [facility] Start: 01-01-2025 End: 01-01-2025 Telephone encounter Ruth Walter PA-C Work Phone: [facility] - [facility] Start: 10-24-2024 End: 10-24-2024 Patient encounter procedure Anais Venegas RN [facility] Clinical Communication Start: 10-24-2024 End: 10-24-2024 Office outpatient visit 15 minutes Ed Greeniram Pearson CNP Work Phone: [facility] Internal Medicine [facility] Comment on above: Acute otitis externa of left ear, unspecified type (Primary Dx); Upper respiratory tract infection, unspecified type Start: 10-24-2024 End: 10-24-2024 ambulatory Anais Venegas RN [facility] Clinical Communication Start: 11-28-2023 Sarahi Francoishn [facility] Start: 03-17-2023 End: 03-17-2023 Emergency department patient visit ZURI Beatris DE LA PAZ Facility:[facility] Start: 12-29-2022 End: 12-29-2022 Emergency department patient visit ZURI CLYDE GRESHAM Facility:[facility] Start: 05-31-2022 End: 05-31-2022 Emergency department patient visit JEANIE CLEVELAND Facility:[facility] Start: 10-22-2021 End: 10-22-2021 Subsequent hospital visit by physician Giselle Lennon MD Work Phone: [facility] Start: 10-09-2021 End: 10-09-2021 Subsequent hospital visit by physician Jeanie Cleveland MD Work Phone: [facility] Comment on above: Arrived Start: 01-12-2021 End: 01-12-2021 Subsequent hospital visit by physician Kendall Goldsmith MD [facility] Phone: [facility] Start: 01-05-2021 Office outpatient visit 15 minutes [facility]ie Cleveland [facility] Work Phone: Start: 01-01-2021 End: 01-01-2021 Subsequent hospital visit by physician Kendall Goldsmith MD Work Phone: [facility] Start: 05-14-2020 End: 05-14-2020 Subsequent hospital visit by physician Kendall Goldsmith [facility] Comment on above: Acute pain of left k nee Start: 07-06-2019 Patient encounter procedure Phong Kelley [facility] Work Phone: Start: 06-26-2019 End: 06-26-2019 Subsequent hospital visit by physician Jeanie Cleveland MD Work Phone: [facility] Start: 11-19-2018 Patient encounter procedure Phong Kelley [facility] Work Phone: Start: 09-15-2018 Patient encounter procedure Phong Kelley [facility] Work Phone: Start: 07-24-2018 Patient encounter procedure Phong Kelley [facility] Work Phone: Start: 10-29-2017 Patient encounter procedure Phong Kelley [facility] Work Phone: Procedures Date Procedure Procedure Detail Performing Clinician Start: 10-24-2024 Adult depression screening assessment Anais Venegas RN Start: 11-28-2023 Therapeutic prophylactic/dx injection subq/im Sarahi Banegas Start: 10-09-2021 Mri spinal canal cer vical w/o contrast matrl Giselle Lennon MD Work Phone: Start: 06-24-2020 Follow-up visit Start: 05-14-2020 Radiologic exam knee complete 4/more views Kendall Goldsmith Work Phone: Start: 07-06-2019 Xray Forearm 2 View Chr isroula Kelley Plan of Treatment Date Care Activity Detail Author Start: 2067 RSV Immunization for Adults (1 - 1-dose 75+ series) RSV Immunization for Adults (1 - 1-dose 75+ series) [facility] Start: 2042 Zoster Vaccines (1 of 2) Zoster Vacc peter (1 of 2) [facility] Start: 12-09-2029 DTaP/Tdap/Td vaccine (9 - Td or Tdap) DTaP/Tdap/Td vaccine (9 - Td or Tdap) [facility] Start: 12-09-2029 DTaP/Tdap/Td Vaccine s (10 - Td or Tdap) DTaP/Tdap/Td Vaccines (10 - Td or Tdap) [facility] Start: 02-01-2027 DTaP/Tdap/Td vaccine (8 - Td) DTaP/Tdap/Td vaccine (8 - Td) [facility] Work Phone: Start: 01-07-2026 End: 01-07-2026 Patient encounter procedure 01/07/2026 8:00 AM EDT Office Visit [facility] 1 [facility] [address] [place] [phone] Ruth Walter, PA-C [address] [place] [address] [facility] Start: 10-24-2025 Depression Screening Depression Scre ening [facility] Start: 02-18-2025 Influenza vaccination S [facility] Start: 01-02-2025 End: 01-02-2026 CBC panel - Blood by Automated count CBC Lab Routine Annual physical exam Tobacco use Screening, anemia, deficiency, iron Expected: 01/02/2025 (Approximate), Expires: 01/02/2026 [facility] Comment on above: Expected: 01/02/2025 (Approximate), Expires: 01/02/2026 Start: 01-02-2025 End: 01-02-2026 Comprehensive metabolic 1998 panel - Serum or Plasma Comprehensive metabolic panel Lab Routine Annual physical exam Screening for endocrine disorder Expected: 01/02/2025 (Approximate), Expires: 01/02/2026 [facility] Work Phone: Comment on above: Expected: 01/02/2025 (Approximate), Expires: 01/02/2026 Start: 01-02-2025 End: 01-02-2026 Lipid 1996 panel - Serum or Plasma Lipid panel Lab Routine Annual physical exam Screening, lipid Expected: 01/02/2025 (Approximate), Expires: 01/02/2026 [facility] Comment on above: Expected: 01/02/2025 (Approximate), Expires: 01/02/2026 Start: 01-02-2025 End: 01-02-2026 Thyrotropin [Units/volume] in Serum or Plasma TSH Lab Routine Annual physical exam Screening for endocrine disorder Expected: 01/02/2025 (Approximate), Expires: 01/02/2026 [facility] Comment on above: Expected: 01/02/2025 (Approximate), Expires: 01/02/2026 Start: 01-02-2025 End: 01-02-2025 Patient encounter procedure 01/02/2025 8:20 AM EDT Office Visit [facility] 1 [facility] [address] [place] [phone] Ruth Walter PA-C [address] [place], [place] [id number] [facility] Start: 11-21-2024 End: 11-21-2024 Patient encounter procedure 11/21/2024 11:00 AM EDT Office Visit [facility] 1 [facility] [address] [place] [phone] Ruth Walter PA-C [address] [place], [place] [id number] [facility] Start: 02-19-2024 COVID-19 Vaccine ( season) COVID-19 Vaccine ( season) [facility] Start: 09-18-2022 Depression Screen Depression Screen [facility] Start: 2022 Screening for malign ant neoplasm of cervix [facility] Start: 02-18-2022 Influenza vaccination Flu vacc ine (Season Ended) [facility] Start: 12-23-2021 End: 12-23-2021 Patient encounter procedure 12/23/2021 Office Visit Internal Medicine Jeanie Cleveland MD 1 [facility] [address] [place] [address] [facility] Start: 02-18-2021 Influenza vaccination Flu vaccine (# 1) [facility] Work Phone: Start: 02-19-2020 Influenza vaccination Flu vaccine (# 1) [place] Start: 02-18-2019 Influenza vaccination Flu vaccine (# 1) [facility] Work Phone: Start: 2013 Cervical cancer screen Cervical canc er screen [facility] Work Phone: Start: 2013 Screening for malign ant neoplasm of cervix [facility] Start: 2011 Pneumococcal Vaccine : Pediatrics (0 to 5 Years) and At-Risk Patients (6 to 49 Years) (1 of 2 - PCV) Pneumococcal Vaccine: Pediatrics (0 to 5 Years) and At-Risk Patients (6 to 49 Years) (1 of 2 - PCV) [facility] Start: 2010 Diabetes mellitus screening Diabetes Screening [facility] Start: 2010 Hepatitis C screening S [facility] Start: 02-20-2009 Meningococcal B Vacc ine (2 of 2 - Bexsero SCDM 2-dose series) Meningococcal B Vaccine (2 of 2 - Bexsero SCDM 2-dose series) [facility] Start: 2007 HIV screen HIV screen [facility] Work Phone: Start: 2007 HIV screening HIV screen [facility] Start: 2004 COVID-19 Vaccine (1) COVID-19 Vaccin e (1) [facility] Work Phone: Start: 1998 Pneumococcal 0-64 ye ars Vaccine (1 - PCV) Pneumococcal 0-64 years Vaccine (1 - PCV) [facility] Start: 1998 Pneumococcal 0-64 ye ars Vaccine (1 of 1 - PPSV23) Pneumococcal 0-64 years Vaccine (1 of 1 - PPSV23) [facility] Work Phone: Start: 1998 Pneumococcal 0-64 ye ars Vaccine (1 of 2 - PPSV23) Pneumococcal 0-64 years Vaccine (1 of 2 - PPSV23) [facility] Work Phone: Start: 1997 COVID-19 Vaccine (1) COVID-19 Vaccin e (1) [facility] Start: 1992 Hepatitis C screening Hepatitis C sc reen [facility] Work Phone: Start: 1992 HIV screening HIV Screening [facility] Start: 1992 Lipid [facility] - bilatera l and [facility] End: 06-26-2019 US RETROPERITONEAL COMPLETE US RETROPERITONEAL COMPLETE Imaging Routine Once for 1 Occurrences starting 06/26/2019 until 06/26/2019 [facility] Work Phone: Comment on above: Once for 1 Occurrenc es starting 06/26/2019 until 06/26/2019 US RETROPERITONEAL COMPLETE US RETROPERITONEAL COMPLETE Imaging Routine 06/26/2019 1:15 PM EST [facility] Work Phone: Immunizations Immunization Date Immunization Notes Care Provider [facility] 12-10-2019 tetanus toxoid, redu kirsten diphtheria toxoid, and acellular pertussis vaccine, adsorbed; Translations: [Tdap (Adacel)] Jeanie Cleveland Work Phone: [facility] Comment on above: Series: 02-01-2017 diphtheria, tetanus toxoids and acellular pertussis vaccine, unspecified formulation; Translations: [Boostrix 5-2.5-18.5 SUSP] [facility] Work Phone: 02-01-2017 tetanus toxoid, redu kirsten diphtheria toxoid, and acellular pertussis vaccine, adsorbed Jeanie Cleveland MD Work Phone: [facility] Work Phone: 01-28-2011 hepatitis A vaccine, pediatric/adolescent dosage, 2 dose schedule Jeanie Cleveland MD Work Phone: [facility] Work Phone: 08-20-2008 hepatitis A vaccine, adult dosage Jeanie Cleveland MD Work Phone: [facility] 08-20-2008 meningococcal B vacc ine, recombinant, OMV, adjuvanted Jeanie Cleveland MD Work Phone: [facility] Work Phone: 08-20-2008 meningococcal polysaccharide (groups A, C, Y and W-135) diphtheria toxoid conjugate vaccine (MCV4P) Jeanie Cleveland MD Work Phone: [facility] Work Phone: 08-20-2008 tetanus toxoid, redu kirsten diphtheria toxoid, and acellular pertussis vaccine, adsorbed Jeanie Cleveland MD Work Phone: [facility] Work Phone: 08-20-2008 varicella virus vaccine Юлия Cleveland MD Work Phone: [facility] Work Phone: 12-31-1997 diphtheria, tetanus toxoids and acellular pertussis vaccine, unspecified formulation Jeanie Cleveland MD Work Phone: [facility] Work Phone: 12-31-1997 measles, mumps and rubella virus vaccine Jeanie Cleveland MD Work Phone: [facility] Work Phone: 12-31-1997 poliovirus vaccine, unspecified formulation Jeanie Cleveland MD Work Phone: [facility] Work Phone: 04-07-1996 haemophilus influenz ae type b vaccine, conjugate unspecified formulation Jeanie Cleveland MD Work Phone: [facility] Work Phone: 02-28-1995 varicella virus vaccine Юлия Cleveland MD Work Phone: [facility] Work Phone: 11-30-1994 hepatitis B vaccine, adult dosage Jeanie Cleveland MD Work Phone: [facility] Work Phone: 06-15-1994 hepatitis B vaccine, pediatric or pediatric/adolescent dosage Jeanie Cleveland MD Work Phone: [facility] Work Phone: 05-26-1994 hepatitis B vaccine, adult dosage Jeanie Cleveland MD Work Phone: [facility] Work Phone: 03-30-1994 hepatitis B vaccine, adult dosage Jeanie Clevelnad MD Work Phone: [facility] Work Phone: 11-11-1993 diphtheria, tetanus toxoids and acellular pertussis vaccine, unspecified formulation Jeanie Cleveland MD Work Phone: [facility] Work Phone: 11-11-1993 trivalent poliovirus vaccine, live, oral Jeanie Cleveland MD Work Phone: [facility] Work Phone: 10-07-1993 haemophilus influenz ae type b vaccine, conjugate unspecified formulation Jeanie Cleveland MD Work Phone: [facility] Work Phone: 10-07-1993 measles, mumps and rubella virus vaccine Jeanie Cleveland MD Work Phone: [facility] Work Phone: 1992 diphtheria, tetanus toxoids and pertussis vaccine Jeanie Cleveland MD Work Phone: [facility] Work Phone: 1992 diphtheria, tetanus toxoids and pertussis vaccine Jeanie Cleveland MD Work Phone: [facility] Work Phone: 1992 haemophilus influenz ae type b vaccine, conjugate unspecified formulation Jeanie Cleveland MD Work Phone: [facility] Work Phone: 1992 trivalent poliovirus vaccine, live, oral Jeanie Cleveland MD Work Phone: [facility] Work Phone: 1992 diphtheria, tetanus toxoids and pertussis vaccine Jeanie Cleveland MD Work Phone: [facility] Work Phone: 1992 haemophilus influenz ae type b vaccine, conjugate unspecified formulation Jeanie Cleveland MD Work Phone: [facility] Work Phone: 1992 trivalent poliovirus vaccine, live, oral Jeanie Cleveland MD Work Phone: [facility] Work Phone: Payers Date Payer Category Payer Self-pay 2021 [employer] [facility] Care - [facility] [employer] [id number] 2021 Unknown [id number] 2017 Unknown [employer] [facility] [address] [id number] 2017-Present [phone] [address] [place] [address] [id number] 2017 Unknown [employer] [facility] [place] [address] xxxxxxxxxxxx 2017-Present [phone] [address] [place] [address] xxxxxxxxxxxx [id number] Unknown [employer] [place] Unknown [id number] Unknown [id number] Social History Date Type Detail Facility Start: 11-06-2019 End: 02-11-2025 Tobacco smoking status NHIS Current every day smoker [employer] Work Phone: History of tobacco use Cigarette Smoker S [employer] Work Phone: Start: 11-06-2019 End: 10-24-2024 Cigarettes smoked current (pack per day) - Reported [facility] Work Phone: Start: 11-06-2019 End: 01-02-2025 Tobacco use and exposure Never used [place] Start: 11-06-2019 End: 01-02-2025 Alcohol intake Ex-drinker (finding) [facility] Start: 11-06-2019 End: 09-18-2021 History SDOH Alcohol Frequency 1 [place] Start: 11-06-2019 End: 09-18-2021 History SDOH Social Connections Phone 5 [place] Start: 11-06-2019 History SDOH Social Connections Get Together 2 [place] Start: 11-06-2019 History SDOH Social Connections Meetings 3 [place] Start: 11-06-2019 History SDOH Social Connections Living 7 [place] Start: 11-06-2019 History SDOH Physica l Activity MPS 6 [place] Start: 1990 Sex Assigned At Not on file S [employer] Work Phone: Start: 09-28-2021 End: 10-08-2021 Exposure to SARS-CoV-2 (event) Not sure [place] Start: 06-14-2019 Alcohol intake Current drinke r of alcohol (finding) [employer] Phone: Start: 10-24-2024 End: 01-02-2025 Tobacco use panel [facility] [employer] Start: 01-18-2022 Sex Female (finding) [facility] Start: 1990 Sex Assigned At Female [facility] NEGATED: Highlighted row - - [facility] Work Phone: Functional Status Date Assessment Result Facility NEGATED: Highlighted row Functional performance Functional status health issues are not documented Disease [facility] Work Phone: Mental Status Date Assessment Result Facility NEGATED: Highlighted row Cognitive function [Interpretation] Cognitive status health issues are not documented Disease [facility] Work Phone: Clinical Notes 03-17-2023 to 01-02-2025 Ruth Walter PA-C - 01/02/2025 8:20 AM EDTTelephone Encounter - Favio Rich - 01/01/2025 11:36 AM EDTTelephone Encounter - Favio Rich - 01/01/2025 11:36 AM EDT Note Date & Type Note Facility 01-02-2025 History of Presen t illness Narrative Images from the original note were not included. [facility] Johanny Fox Date of : 1990 Age : 34 y.o. Date of Visit: 01/02/2025 Chief Complaint: Johanny Fox is a 34 y.o. female who presents for Chief Complaint Patient presents with Establish Care HPI: New patient here to re-establish care- prev Cristofer patient. Following with estimator Asking for annual visit. Labs done 02/2023- normal/stable. She is asking for help with smoking cessation- smoking 1/2-1 ppd Review of Systems Constitutional: Negative. Negative for activity change (works in [employer] and appetite change (less during the day. lots of water.). HENT: Negative. Eyes: Negative. Respiratory: Negative. Negative for cough and shortness of breath. Cardiovascular: Negative. Gastrointestinal: Negative. Endocrine: Negative. Genitourinary: Negative. Musculoskeletal: Negative. Skin: Negative. Allergic/Immunologic: Negative. Neurological: Negative. Hematological: Negative. Psychiatric/Behavioral: Negative for self-injury, sleep disturbance and suicidal ideas. The patient is nervous/anxious (following with counselor). Medical History[1] Active Ambulatory Problems Diagnosis Date Noted Abnormal uterine bleeding 02/14/2018 Kidney stone on right side 01/03/2018 Severe dysmenorrhea 02/14/2018 Polycystic ovary syndrome 02/14/2018 Generalized abdominal pain 10/08/2021 NSAID induced gastritis 10/08/2021 Tobacco use 01/02/2025 PARTHA (generalized anxiety disorder) 01/02/2025 Resolved Ambulatory Problems Diagnosis Date Noted Blood in stool 10/08/2021 Past Medical History: Diagnosis Date Anxiety Kidney stone 2018 UTI (urinary tract infection) Surgical History[2] Current Medications[3] Long-Term Medications[4] Allergies[5] Immunization History Administered Date(s) Administered DTP 1992, 1992, 1992 DTaP, Unspecified 11/11/1993, 12/31/1997, 02/01/2017 Hep A, Adult 08/20/2008 Hep A, ped/adol, 2 dose 01/28/2011 Hep B, Adolescent or Pediatric 06/15/1994 Hep B, adult 03/30/1994, 05/26/1994, 11/30/1994 HiB, unspecified 1992, 1992, 10/07/1993, 04/07/1996 MMR 10/07/1993, 12/31/1997 Meningococcal B, Omv 08/20/2008 Meningococcal MCV4P 08/20/2008 OPV 1992, 1992, 11/11/1993 Polio, Unspecified 12/31/1997 Tdap 08/20/2008, 02/01/2017, 12/10/2019 Varicella 02/28/1995, 08/20/2008 OBJECTIVE: BP 94/63 (BP Location: Left arm, Patient Position: Sitting, BP Cuff Size: Adult) Pulse 71 Temp 36.3 C (97.4 F) (Temporal) Resp 16 Ht 5' 2" (1.575 m) Wt 98 lb (44.5 kg) LMP 12/14/2024 (Exact Date) BMI 17.92 kg/m Physical Exam Vitals and nursing note reviewed. Constitutional: General: She is not in acute distress. Appearance: Normal appearance. She is not ill-appearing, toxic-appearing or diaphoretic. HENT: Head: Normocephalic and atraumatic. Nose: Nose normal. Mouth/Throat: Mouth: Mucous membranes are moist. Eyes: Conjunctiva/sclera: Conjunctivae normal. Pupils: Pupils are equal, round, and reactive to light. Cardiovascular: Rate and Rhythm: Normal rate and regular rhythm. Pulses: Normal pulses. Heart sounds: Normal heart sounds. No murmur heard. Pulmonary: Effort: Pulmonary effort is normal. No respiratory distress. Breath sounds: Normal breath sounds. Abdominal: General: Bowel sounds are normal. There is no distension. Palpations: Abdomen is soft. There is no mass. Tenderness: There is no abdominal tenderness. There is no right CVA tenderness, left CVA tenderness, guarding or rebound. Hernia: No hernia is present. Musculoskeletal: General: Normal range of motion. Cervical back: Normal range of motion. No rigidity. Right lower leg: No edema. Left lower leg: No edema. Skin: General: Skin is warm and dry. Neurological: General: No focal deficit present. Mental Status: She is alert and oriented to person, place, and time. Psychiatric: Mood and Affect: Mood normal. Behavior: Behavior normal. Comments: Following with counselor for anxiety ASSESSMENT & PLAN: Problem List Items Addressed This Visit Tobacco use Relevant Medications nicotine (Nicoderm CQ) 14 MG/24HR patch Other Relevant Orders CBC Other Visit Diagnoses Encounter to establish care with new provider - Primary Relevant Orders [facility] Annual physical exam ~ reviewed HCGs and HM with patient. ~ given information sheet on well visit, preventative care and guidelines for healthy living ~ medications reviewed and refills given if requested or required ~ updated medication list and medical history with patient ~ follow up in 1 year, sooner if needed Relevant Orders Comprehensive metabolic panel CBC Lipid panel TSH Screening, lipid Relevant Orders Lipid panel Screening for endocrine disorder Relevant Orders Comprehensive metabolic panel TSH Screening, anemia, deficiency, iron Relevant Orders CBC Orders Placed This Encounter Procedures Comprehensive metabolic panel Standing Status: Future Number of Occurrences: 1 Expected Date: 01/02/2025 Expiration Date: 01/02/2026 CBC Standing Status: Future Number of Occurrences: 1 Expected Date: 01/02/2025 Expiration Date: 01/02/2026 Lipid panel Standing Status: Future Number of Occurrences: 1 Expected Date: 01/02/2025 Expiration Date: 01/02/2026 TSH Standing Status: Future Number of Occurrences: 1 Expected Date: 01/02/2025 Expiration Date: 01/02/2026 [facility] Standing Status: Future Expected Date: 01/02/2025 Expiration Date: 07/05/2025 Referral Priority: Routine Referral Type: Consultation Referral Reason: Specialty Services Required Requested Specialty: Obstetrics and Gynecology Number of Visits Requested: 1 Ruth Walter PA-C [1] Past Medical History: Diagnosis Date Abnormal uterine bleeding 02/14/2018 Anxiety PARTHA (generalized anxiety disorder) 01/02/2025 Kidney stone 2018 Right Polycystic ovary syndrome 02/14/2018 Severe dysmenorrhea 02/14/2018 Tobacco use 01/02/2025 UTI (urinary tract infection) [2] Past Surgical History: Procedure Laterality Date TONSILLECTOMY (HISTORICAL) 11/26/2013 WISDOM TOOTH EXTRACTION [3] Current Outpatient Medications Medication Sig Dispense Refill nicotine (Nicoderm CQ) 14 MG/24HR patch Place 1 patch on the skin Every 24 hours. 30 patch 1 No current facility-administered medications for this visit. [4] Long-Term Medications Medication Sig Dispense Refill nicotine (Nicoderm CQ) 14 MG/24HR patch Place 1 patch on the skin Every 24 hours. 30 patch 1 [5] No Known Allergies documented in this encounter [facility] 01-01-2025 Telephone encount er Note Called patient to confirm tomorrow's appointment. No answer. Left message. [facility] 01-01-2025 Miscellaneous Notes Formattin g of this note might be different from the original. Called patient to confirm tomorrow's appointment. No answer. Left message. documented in this encounter [facility] 10-24-2024 History of Presen t illness Narrative Images from the original note were not included. [facility] [address] [place] [address] Dept: [phone] Dept Reason for Visit: Earache (left ear pain; fullness; cannot hear out of that ear;) Assessment and Plan 1. Acute otitis externa of left ear, unspecified type - amoxicillin (Amoxil) 500 MG capsule; Take 1 capsule (500 mg) by mouth 3 times daily for 7 days., Starting Tue10/24/2024, Until Tue10/31/2024, Normal 2. Upper respiratory tract infection, unspecified type - amoxicillin (Amoxil) 500 MG capsule; Take 1 capsule (500 mg) by mouth 3 times daily for 7 days., Starting Tue10/24/2024, Until Tue10/31/2024, Normal - continue with zyrtec, flonase, OTC cough suppressant -warm compresses to left ear for comfort -Tylenol, Ibuprofen as directed for pain and discomfort Follow up if symptoms worsen or fail to improve. Subjective HPI -Onset of initial symptoms 2 weeks ago -She presents today with left ear fullness: states it feels blocked -feels she can't hear out of it well and it is becoming painful radiating to jaw. No edema noted - associated symptoms of left sided nasal congestion, sore throat. Left side of face feels slightly numb with "lots of pressure -States she started having congestion late last week with mild fever, (did not take temp), productive cough green yellow sputum and shortness of breath with exertion -She went to Urgent care and was given Flonase and zyrtec which she claims has not helped -She denies ear drainage, nausea, vomiting ,chest pain, chills Wt Readings from Last 3 Encounters: 10/24/24 101 lb (45.8 kg) 01/28/22 100 lb 3.2 oz (45.5 kg) 01/14/22 98 lb (44.5 kg) BP Readings from Last 3 Encounters: 10/24/24 94/64 01/28/22 91/64 01/14/22 88/57 Review of Systems Constitutional: Positive for fever. Negative for appetite change, chills and fatigue. HENT: Positive for congestion (left side), ear pain, hearing loss (fullness in left ear), rhinorrhea and sinus pressure (left side). Negative for facial swelling, mouth sores, sore throat and tinnitus. Sinus pain: left. Respiratory: Positive for cough (green yellow sputum) and shortness of breath (with exertion). Negative for chest tightness and wheezing. Cardiovascular: Negative for chest pain. Gastrointestinal: Negative for diarrhea and nausea. Musculoskeletal: Negative for myalgias. Skin: Negative. Neurological: Negative for weakness, light-headedness and headaches. No Known Allergies No orders of the defined types were placed in this encounter. Past Medical History: Diagnosis Date Abnormal uterine bleeding 02/14/2018 Anxiety Kidney stone 2018 Right Polycystic ovary syndrome 02/14/2018 Severe dysmenorrhea 02/14/2018 UTI (urinary tract infection) Social History Tobacco Use Smoking status: Every Day Current packs/day: 0.25 Types: Cigarettes Smokeless tobacco: Never Substance Use Topics Alcohol use: Not Currently Alcohol/week: 0.0 standard drinks of alcohol Past Surgical History: Procedure Laterality Date TONSILLECTOMY (HISTORICAL) 11/26/2013 WISDOM TOOTH EXTRACTION Family History Problem Relation Name Age of Onset Lung cancer Paternal Grandfather No Known Problems Mother Alcohol abuse Father Colon cancer Maternal Grandfather Hypertension Father No Known Problems Sister Polycystic ovarian syndrome Hypertension Paternal Grandmother Heart disease Father Diabetes Maternal Grandmother Breast cancer Maternal Grandmother 58.00 Objective BP 94/64 Pulse 87 Ht 5' 2" (1.575 m) Wt 101 lb (45.8 kg) SpO2 99% BMI 18.47 kg/m Physical Exam Constitutional: Appearance: Normal appearance. HENT: Head: Normocephalic and atraumatic. Ears: Comments: Erythema noted in ear canal Nose: Congestion and rhinorrhea present. Mouth/Throat: Mouth: Mucous membranes are moist. Cardiovascular: Rate and Rhythm: Normal rate and regular rhythm. Heart sounds: Normal heart sounds. Pulmonary: Effort: Pulmonary effort is normal. Breath sounds: Normal breath sounds. No wheezing. Musculoskeletal: General: Normal range of motion. Cervical back: Normal range of motion. Skin: General: Skin is warm and dry. Neurological: Mental Status: She is alert and oriented to person, place, and time. Psychiatric: Mood and Affect: Mood normal. Behavior: Behavior normal. Data Reviewed and Summarized Labs: Imaging/Testing: MARTHA Feldman CNP 10/24/24 documented in this encounter [facility] [employer] 10-24-2024 Telephone encount er Note S: Patient spoke with [facility] nurse regarding ear pain/congestion to ear/unable to hear out of that ear. B: Onset of symptoms/concern Easter. A: Pt states she has been having issues with her left ear for a few weeks now. Seen in and given Zyrtec and Flonase but nothing is helping. Ear is becoming painful now. Pt cannot hear out of that ear and she is becoming concerned. Denies fever, drainage to ear, redness to ear, nausea, vomiting. Pt states she is also having sore throat, congestion, cough, slight SOB. Pt wants appt today for eval. No appts in office. Pt wants to POD schedule. R: Patient POD scheduled. Ins verified. Pt to bring photo ID; Ins card to appt. Pt aware of office location. Pt to call back if any further ques or concerns. Reason for Disposition Patient wants to be seen Ear congestion lasts > 3 days and no improvement after using Care Advice (Exception: Ear congestion is a chronic symptom.) Earache lasts > 1 hour Answer Assessment - Initial Assessment Questions 1. LOCATION: "Which ear is involved?" Left ear 2. SENSATION: "Describe how the ear feels." (e.g., stuffy, full, plugged)." Plugged and can't hear out of it 3. ONSET: "When did the ear symptoms start?" Lissette 4. PAIN: "Do you also have an earache?" If Yes, ask: "How bad is it?" (Scale 0-10; none, mild, moderate or severe) Pressure feeling 5/10 5. CAUSE: "What do you think is causing the ear congestion?" (e.g., common cold, nasal allergies, recent flight, recent snorkeling) unsure 6. OTHER SYMPTOMS: "Do you have any other symptoms?" (e.g., ear drainage, hay fever symptoms such as sneezing or a clear nasal discharge; cold symptoms such as a cough or runny nose) Sore throat; raspy voice,cough; nasal congestion, SOB 7. : "Is there any chance you are ?" "When was your last menstrual period?" No Protocols used: Ear - [id number] [facility] 10-24-2024 Miscellaneous Notes Formattin g of this note might be different from the original. S: Patient spoke with [facility] nurse regarding ear pain/congestion to ear/unable to hear out of that ear. B: Onset of symptoms/concern Lissette. A: Pt states she has been having issues with her left ear for a few weeks now. Seen in and given Zyrtec and Flonase but nothing is helping. Ear is becoming painful now. Pt cannot hear out of that ear and she is becoming concerned. Denies fever, drainage to ear, redness to ear, nausea, vomiting. Pt states she is also having sore throat, congestion, cough, slight SOB. Pt wants appt today for eval. No appts in office. Pt wants to POD schedule. R: Patient POD scheduled. Ins verified. Pt to bring photo ID; Ins card to appt. Pt aware of office location. Pt to call back if any further ques or concerns. Reason for Disposition Patient wants to be seen Ear congestion lasts > 3 days and no improvement after using Care Advice (Exception: Ear congestion is a chronic symptom.) Earache lasts > 1 hour Answer Assessment - Initial Assessment Questions 1. LOCATION: "Which ear is involved?" Left ear 2. SENSATION: "Describe how the ear feels." (e.g., stuffy, full, plugged)." Plugged and can't hear out of it 3. ONSET: "When did the ear symptoms start?" Lissette 4. PAIN: "Do you also have an earache?" If Yes, ask: "How bad is it?" (Scale 0-10; none, mild, moderate or severe) Pressure feeling 5/10 5. CAUSE: "What do you think is causing the ear congestion?" (e.g., common cold, nasal allergies, recent flight, recent snorkeling) unsure 6. OTHER SYMPTOMS: "Do you have any other symptoms?" (e.g., ear drainage, hay fever symptoms such as sneezing or a clear nasal discharge; cold symptoms such as a cough or runny nose) Sore throat; raspy voice,cough; nasal congestion, SOB 7. : "Is there any chance you are ?" "When was your last menstrual period?" No Protocols used: Ear - [id number] documented in this encounter [facility] 04-02-2023 Note HNO ID: [id number] Author: Note, Interface Service: ? Author Type: ? Type: Progress Notes Filed: 04/02/2023 2:56 AM Note Text: Epic Scheduled Downtime: 04/02/2023 1:00:00 AM to 04/02/2023 1:28:00 AM [facility] 03-17-2023 Note HNO ID: [id number] Author: Lilly Rivera RT(Iram) Service: ? Author Type: Technologist Type: Progress Notes Filed: 03/17/2023 2:08 PM Note Text: Radiology Service Progress Note PATIENT NAME: Johanny Fox DATE OF SERVICE: March 17, 2023 TIME: 2:08 PM PATIENT IDENTITY VERIFICATION COMPLETED USING TWO (2) IDENTIFIERS: Name and Date of confirmed by patient verbally and Name and Date of confirmed by identification band. FALL SCREENING: Has the patient had 2 falls in the last year or 1 fall with injury or currently using an Ambulatory Assistive Device (Walker, Cane, Wheelchair, Crutches, etc.)? Emergency Room Patient: Screened in ED PATIENT GENDER DATA: Female. status: : No status: NO. PATIENT RELEVANT IMPLANT DATA REVIEWED: Not Applicable RADIOLOGY DEPARTMENT: General X-ray: Exam(s) Completed: Chest X-Ray PERIPHERAL IV DATA: Not applicable SIGNED BY: RT Luna(R) March 17, 2023 2:08 PM [facility] Evaluation note Diagnosis Acute otitis externa of left ear, unspecified type- Primary Upper respiratory tract infection, unspecified type documented in this encounter [facility] note* Diagnosis Encounter to establish care with new provider- Primary Annual physical exam Routine general medical examination at a health care facility Tobacco use Screening, lipid Screening for endocrine disorder Screening, anemia, deficiency, iron Screening for iron deficiency anemia documented in this encounter [facility] Diagnosis Onset Date Resolution Status Admit Date H/O renal calculi acute February 11, 2025 7:58am [facility] Work Phone: Instructions* Instruction Text Ibuprofen as neededFlexeril as needed; may cause drowsinessRange of motion exercises discussedApply ice, 10 minutes at a timeFollow up with new or worsening symptoms [facility] Reason for referral (narrative)No reason for referral information [facility] Work Phone: Summary Purpose Family History No Family History Records FoundNo Family History Records FoundNo Family History Records FoundNo Family History Records FoundNo Family History Records FoundNo Family History Records FoundNo Family History Records FoundNo Family History Records Found Advance Directives No Advanced Directives Records FoundDocuments on File Type Date Recorded Patient Assistant Community Manager Expl anation ACP-Advance Directive ACP-Power of Senior Unix Administrator Documents on File Type Date Recorded Patient Assistant Community Manager Expl anation Advance Directives and Living Will Power of Senior Unix Administrator Documents on File Type Date Recorded Patient Assistant Community Manager Expl anation ACP-Advance Directive ACP-Power of Senior Unix Administrator Assessments Diagnosis Acute pain of left knee Chief Complaint and Reason for Visit Chief Complaint Admit Date old/new pt. stones February 11, 2025 7: 58am Reason for Visit Admit Date H/O renal calculi February 11, 2025 7: 58am Additional Source Comments INFORMATION SOURCE (unrecogn ized section and content) DATE CREATED AUTHOR 04/07/2020 [facility] DATE CREATED AUTHOR AUTHOR'S ORGANIZ ATION 04/16/2020 [facility] DATE CREATED AUTHOR AUTHOR'S ORGANIZ ATION 01/05/2021 [facility] DATE CREATED AUTHOR AUTHOR'S ORGANIZ ATION 01/05/2021 [facility] DATE CREATED AUTHOR AUTHOR'S ORGANIZ ATION 10/30/2021 [facility] DATE CREATED AUTHOR AUTHOR'S ORGANIZ ATION 04/03/2023 [facility] DATE CREATED AUTHOR AUTHOR'S ORGANIZ ATION 01/05/2025 [facility] DATE CREATED AUTHOR AUTHOR'S ORGANIZ ATION 03/08/2025 [facility] Reason for Visit (unrecogniz ed section and content) Status Reason Specialty Diagnoses / Procedures Re ferred By Contact Referred To Contact Closed Radiology Diagnoses Kidney stone Procedures US Retroperitoneal Limited Jeanie Cleveland MD 1 [facility] [address] [place] [address] Specialty Diagnoses / Procedures Referred By Contac t Referred To Contact Radiology Diagnoses Cervical pain (neck) Muscle tension headache Procedures MRI CERVICAL SPINE WO CONTRAST Giselle Lennon MD 1 [facility] [address] [place] [id number] Referral ID Status Reason Start Date Expiration Date Visits Re quested Visits Authorized [id number] Closed 09/18/2021 09/18/2022 1 1 Reason Onset Date Comments Ear Fullness 10/24/2024 Reason Comments Earache left ear pain; fulln ess; cannot hear out of that ear; Reason Comments Establish Care Care Teams (unrecognized sec tion and content) [employer] Steward[employer] Relationship Specialty Start Date End Date Jeanie Cleveland MD PCP - General Family Medicine 02/01/17 [employer] Relationship Specialty Start Date End Date Jeanie Cleveland MD PCP - General Family Medicine 02/01/17 [employer] Stewardess Relationship Specialty Start Date End Date System, [facility] [address] [place] [phone] PCP - General 11/17/23 [employer] Stewardess Relationship Specialty Start Date End Date [facility], [facility] [address] [place] [phone] PCP - General 11/17/23 [employer] Stewardess Relationship Specialty Start Date End Date [facility], [facility] [address] [place] [phone] PCP - General 11/17/23 [employer] Stewardess Relationship Specialty Start Date End Date System, [facility] [address] [place] [phone] PCP - General 11/17/23 Team Status: Active Member Role/Relationship Status Dates Dr. Jeanie Cleveland MD Primary Care Provider Active Team Status: Inactive Member Role/Relationship Status Dates Dr. Jeanie Cleveland MD Primary Care Provider Active Start: February 11, 2025 End: February 11, 2025 Dr. Jeanie Cleveland MD Referring Provider Active Start: February 11, 2025 End: February 11, 2025 Dr. Gabby August MD Attending Provider Active Start: February 11, 2025 End: February 11, 2025 Goals (unrecognized section and content) Goals may be documented in a n alternate section FOR RECORDS PERTAINING TO PATIENTS WHO ARE OR HAVE BEEN ENROLLED IN A CHEMICAL DEPENDENCY/SUBSTANCEABUSE PROGRAM, SOME INFORMATION MAY BE OMITTED. This clinical summary was aggregated from multiple sources. Caution should be exercised in using it in the provision of clinical care. This summary normalizes information from multiple sources, and as a consequence, information in this document may materially change the coding, format and clinical context of patient data. In addition, data may be omitted in some cases. CLINICAL DECISIONS SHOULD BE BASED ON THE PRIMARY CLINICAL RECORDS. [facility] [employer] [facility]. provides no warranty or guarantee of the accuracy or completeness of information in this document.
== END | disposition home or self-care (01) ==
LOC: US 16:33
PROVIDERS: Referring Provider Urology; Visit Provider Urology
DX: N20.0 Calculus of kidney (principal)
CPT/HCPCS: 76770

== ENCOUNTER → 2025-03-22 | Outpatient (CLI) | payer BC, SELFPAY ==
--- NOTE | 2025-03-22 16:48 | CT_ITS ---
PROCEDURE: ABDOMEN/PELVIS WITHOUT CONT 03/22/2025 REASON FOR EXAM: BILATERAL STONES TECHNIQUE: Procedure Code: CTABDPEL Modality: CT Procedure: ABDOMEN/PELVIS WITHOUT CONT Noncontrast technique limits evaluation of the abdominal and pelvic viscera. Coronal and Sagittal reconstruction series were provided. One or more dose reduction techniques were used (e.g., Automated exposure control, adjustment of the mA and/or kV according to patient size, use of iterative reconstruction technique). RADIATION DOSE SUMMARY: CTDI Vol 13.71 mGy DLP :713.64 mGycm COMPARISON: none FINDINGS: Right renal upper calyceal punctate/1 mm non obstructing calculus Both kidneys are of average size and showing smooth outline with preserved parenchymal thickness. No left renal calculi. No hydronephrosis. Distension of the urinary bladder showing minimal uniform mural thickening with no obvious masses or calculi. Average sized liver showing homogenous parenchymal attenuation. No dilated intra or extra-hepatic biliary tracts. Gall bladder showing no radiodense calculi. No abnormal mural thickening. Clear surrounding fat planes with no sizeable collections. Normal unenhanced appearance of the pancreas with clear surrounding fat planes. The unenhanced spleen, adrenal glands, aorta and IVC are unremarkable. No obvious masses related to the pelvic viscera. The appendix appears unremarkable. No right iliac inflammatory changes. Colonic fecal loading. The small bowel loops are unremarkable. The stomach is unremarkable. Mild free pelvic fluid, likely physiological. No ascites or free air. No obvious pathologically enlarged lymph nodes. Scanned osseous structures show no osseous destruction. Scanned lung bases show no obvious abnormalities. CT/Abdomen/Pelvis without Cont IMPRESSION: Right renal upper calyceal punctate/1 mm non obstructing calculus. No hydronep hrosis. Unremarkable study of the abdomen and pelvis. Reading Location[facility]
--- OUTSIDE RECORDS SUMMARY | 2025-03-22 17:27 | XMS RPT_ITS | CCD ---
Author Organization [facility] CliniSymd Care Team Providers Care Photographer News Name Role Phone Phong Kelley Unavailable UnavailBuzz Jones Unavailable Unavailable Ortiz, Rajinder Unavailable Unavailable CristoferBlanca wellse Y Unavailable Unavailable None, No PCP Unavailable Unavailable Jeanie Cleveland Primary Care Provider Jeanie Cleveland MD Primary Care Provider Jeanie Cleveland Unavailable [phone] Unavailable Unavailable Jeanie Cleveland MD Primary Care Provider Jeanie Cleveland MD Primary Care Provider JEANIE CLEVELAND Primary Care Unava ilable ZURI TANG DO Attending Unavailab JEANIE Smith Primary Care Unava ilable ZURI DE LA PAZ Attending Unavailable JEANIE CLEVELAND Primary Care Unava ilable Sarahi Banegas Unavailable Meagan Castillo Unavailable [facility] Primary Care [place] Attending Unavailable RUTH WALTER Attending Unavailable Dr. Jeanie Cleveland MD Primary Care Provider Dr. Jeanie Cleveland MD Referring Provider Mata SRIVASTAVA, Dr. Pierre Attending Provider Jeanie Cleveland Referring Unavailable Jeanie Cleveland Primary Care Unavailable Gabby August Attending Unavailable BERNIE PARKER Primary Care Unavailable Gabby August Referring Unavailable Gabby August Attending Unavailable BERNIE PARKER Primary Care Unavailable Gabby August Referring Unavailable Gabby August Attending Unavailable Medications Current Medications Medication Drug Class(es) [...] Start: 06-23-2014 take 1 capsule by mo ut three times daily as needed Benzonatate 100 [...] Start: 01-05-2021 take 1 tablet by maritza th three times daily Cyclobenzaprine HCl - 10 [...] 24 hr nicotine 0.583 mg/hr transdermal system (3 sources) Cholinergic Nicotinic Agonist Start: 01-02-2025 apply 1 dose transdermal route every twenty-four hours nicotine (Nicoderm CQ) 14 MG/24HR patch Indications: Tobacco use Place 1 patch on the skin Every 24 hours. 30 patch 1 01/02/2025 Active predniSONE 20 mg oral tablet (2 sources) Start: 08-03-2022 PredniSONE 20 mg oral tablet Start: 11-19-2018 take 3 tablets by mo uth once daily, then take 1 tablet by [...] circumstances] Onset: 01-02-2025 01-02-2025 Episodic Anxiety disorders (3 sources) Generalized anxiety disorder; Translations: [Generalized anxiety disorder] Onset: 01-02-2025 01-02-2025 Chronic Chronic obstructive pulmonary disease and bronchiectasis (1 source) Chronic obstructive pulmonary disease with (acute) exacerbation; Translations: [Chronic obstructive pulmonary disease w (acute) exacerbation] Onset: 08-03-2022 Chronic Conditions associated with dizziness or vertigo (1 source) Dizziness and giddiness; Translations: [Lightheadedness] Onset: 03-17-2023 Episodic Disorders of lipid metabolism (2 sources) Mixed hyperlipidemia; Translations: [Mixed hyperlipidemia] Onset: 03-13-2025 5 Chronic Fever of unknown origin (3 sources) Fever; [...] with other respiratory manifestations] Episodic Menstrual disorders (12 sources) Dysmenorrhea; Translations: [Dysmenorrhea, unspecified] Onset: 02-14-2018 [...] ear] Onset: 10-24-2024 Episodic Other endocrine disorders (12 sources) Polycystic ovarian syndrome; Translations: [Polycystic ovary syndrome] Onset: 02-14-2018 02-14-2018 Chronic Other female genital disorders (12 sources) Abnormal uterine bleeding; Translations: [Abnormal uterine [...] Onset: 08-03-2022 10-24-2024 Episodic Residual codes; unclassified (5 sources) Tobacco use and exposure - finding; [...] Date Documented Da te Episodic/Chronic Abdominal pain (8 sources) Generalized abdominal pain; Translations: [Generalized abdominal pain] Onset: 10-08-2021 10-08-2021 Episodic Acute bronchitis (4 sources) Acute bronchitis; Translations: [Acute bronchitis] Onset: 05-02-2023 Episodic Calculus of urinary tract (16 sources) Kidney stone; Translations: [Calculus of kidney] Onset: 01-03-2018 01-03-2018 Episodic Gastritis and duodenitis (8 sources) NSAID-associated gastropathy; Translations: [Other gastritis without bleeding] Onset: 10-08-2021 10-08-2021 Episodic Gastrointestinal hemorrhage (8 sources) Hematochezia; Translations: [Melena] Onset: 10-08-2021 Resolved: [...] Test Name Value Interpretation Reference Range Facility Kidney [facility] Bladderon 025 Kidney and Bladder [facility] Imaging Services [address] [place] [address] Kidney and Bladder MR#: [id number] Acct: [id number] Name: JOHANNY FOX Rep #: [id number] : 1990 F 34 From: Shikha Morales MD PCP: RUTH WALTER Status: REG CLI Study: Kidney and Bladder Date of Exam: 03/08/25 Exam# [id number] Ordering Dr: Gabby August MD PROCEDURE: KIDNEY AND BLADDER 03/08/2025 REASON FOR EXAM: URGENCY, BACK PAIN, HISTORY STONES TECHNIQUE: Procedure Code: USKI Modality: US Procedure: KIDNEY AND BLADDER. Real-time ultrasound of the retroperitoneum (complete) with image documentation. COMPARISON: 12/24/2019 FINDINGS: RIGHT KIDNEY Size: Normal measuring 10.7 x 3.8 x 4.1 cm. Echogenicity: Normal. Parenchymal thickness: Normal. Hydronephrosis: None. Calculi: Two calculi, both measuring 0.3 x 0.2 x 0.2 cm. Cysts: None. Solid masses: None. LEFT KIDNEY Size: Normal measuring 10.1 x 4.6 x 4.7 cm. Echogenicity: Normal. Parenchymal thickness: Normal. Hydronephrosis: None. Calculi: Two calculi measuring 0.2 x 0.2 x 0.3 cm and 0.2 x 0.1 x 0.3 cm. Cysts: None. Solid masses: None. BLADDER: Normal morphology with prevoid volume of 245 mL. Postvoid volume of 4.7 mL, which is within normal limits. OTHER: None. US/Kidney and Bladder IMPRESSION: Nonobstructing renal calculi bilaterally. Reading Location: [facility] CC: RUTH WALTER; Dr. Gabby August MD Clinical Programmer: Signed Normal [facility] MR/Abdirashid 02-11-2025 MR/BMSCRISTA [facility] [address], [address] [place] [address] OFFICE VISIT Date of Service: 02/11/25 MR#: [id number] Acct: [id number] Name: JOHANNY FOX Rep #: [id number] : 1990 Provider: Dr. Gabby Gautam i, MD Age/Sex: 34/F Location[place] [facility] Status: Signed Intake Vital Signs 02/11/25 08:05 Height 5 ft 1 in Weight: 110 lb BMI 20.7 BP 99/76 Pulse 84 Intake Visit Reasons: old/new pt. stones Chief Complaint: new patient for h/o kidney stones and frequency Tripoler Required: No Accompanied by: Self Is patient [...] do you feel safe at home: Yes [facility] Urology Chief Complaint: new patient for h/o [...] healthy appearing, comfortable and no acute distress [facility] Head: normocephalic and atraumatic Ears: hearing grossly [...] Ruff on 02/11/25 08:11 Off Ur Spec [place] 1.010 Last Edit by Leandra Ruff on 02/11/25 08:11 Office Urine pH 6.5 Last Edit by Leandra Ruff on 02/11/25 08:11 Office Urine Protein N (more content not included)... Normal [facility] Office Visiton 01-02-2025 Follow-up visit [id number] Johanny Fox 1990 F Date Provider Department Center 01/02/2025 [id number] Anthony MUNGUIA Family History Problem Relation [...] Alive Paternal Grandmother Maternal Grandmother Level of Service:47493 [place] INITIAL PREVENTIVE MEDICINE NEW PT AGE 18-39YRS Reason for Visit and Comments: Establish Care [42] Normal [facility] Progress Noteon 01-02-2025 Progress Note [facility] Johanny Fox Date of : 1990 Age : 34 y.o. Date of Visit: 01/02/2025 Chief Complaint: Johanny Fox is a 34 y.o. female who presents for Chief Complaint Patient presents with Establish Care HPI: New patient here to re-establish care- prev Cristofer patient. Following with mental health orderly Asking for annual visit. Labs done 02/2023- normal/stable. She is asking for help with smoking cessation- smoking /2-1 ppd Review of Systems Constitutional: Negative. Negative for activity change (works in [employer] and appetite change (less during the day. [...] with new provider - Primary Relevant Orders [facility] W[facility] Annual physical exam ~ reviewed HCGs and [...] Orders CBC O (more content not included)... [facility] 01-01-2025 36 Called patient to co irm tomorrow's appointment. No answer. Left message. [facility] 10-24-2024 36 S: Patient spoke britt h [facility] nurse regarding ear pain/congestion to ear/unable [...] menstrual period?" No Protocols used: Ear - [id number] Normal [facility] Office Visiton 10-24-2024 Follow-up visit [id number] Johanny Fox 1990 F Date Provider Department Center 10/24/2024 ED [facility] Family History Problem Relation Age of Onset [...] Alive Paternal Grandmother Maternal Grandmother Level of Service:25498 [place] OFFICE/OUTPATIENT ESTABLISHED LOW MDM 20 MIN Reason for Visit and Comments: Earache [070915] - left ear pain; fullness; cannot hear out of that ear; Normal [facility] Progress Noteon 10-24-2024 Progress Note [facility] [address] [place] [address] Dept: [phone] Dept Reason for Visit: Earache (left ear [...] Data Reviewed and Summarized Labs: Imaging/Testing: Ed Alvarez APRN - EARLY CHILDHOOD TEACHER 10/24/24 Normal [facility] CBC panel Auto (Bld)on 03-17 Erythrocyte distribution width (RBC) [Ratio] 12.5 % Normal 11.5-15.0 [facility] Comment on above: Order Comment: Franky reynolds Type: BLOOD SPECIMENOrdering Facility: [facility] Address: [address] [place] [address] Performed By: #### 5 8410-2 ####[facility] LABORATORYCLIA [id number] [place] [address] [place] Hematocrit (Bld) [Volume fraction] 44.9 % Normal 36.0-46.0 [facility] Comment on above: Order Comment: Franky reynolds Type: BLOOD SPECIMENOrdering Facility: [facility] Address: [address] [place] [place] [address] Performed By: #### 5 8410-2 ####M[facility] LABORATORYCLIA [id number] [address] Hemoglobin (Bld) [Mass/Vol] 15.3 g/dL Normal 11.5-15.5 [facility] Comment on above: Order Comment: Speci men Type: BLOOD SPECIMENOrdering Facility: [facility] Address: [address] [address] Performed By: #### 5 8410-2 ####MEND[facility] LABORATORYCLIA [id number] [address] MCH (RBC) [Entitic mass] 30.8 pg Normal 26.0-34.0 [facility] Comment on above: Order Comment: Speci men Type: BLOOD SPECIMENOrdering Facility: [facility] Address: [address] [place] [address] Performed By: #### 5 8410-2 ####MEND[facility] LABORATORYCLIA [id number] [address] MCHC (RBC) [Mass/Vol] 34.1 g/dL Normal 30.5-36.0 [facility] Comment on above: Order Comment: Speci men Type: BLOOD SPECIMENOrdering Facility: [facility] Address: [address] [place] [address] Performed By: #### 5 8410-2 ####MEND[facility] LABORATORYCLIA [id number] [address] MCV (RBC) [Entitic vol] 90.5 fL Normal 80.0-100.0 [facility] Comment on above: Order Comment: Speci men Type: BLOOD SPECIMENOrdering Facility: [facility] Address: [address] [place] [address] Performed By: #### 5 8410-2 ####MEND[facility] LABORATORYCLIA [id number] [address] Nucleated RBC (Bld) [#/Vol] 10*3/uL Normal <0.01 [facility] Comment on above: Order Comment: Speci men Type: BLOOD SPECIMENOrdering Facility: [facility] Address: [address] [place] [address] Performed By: #### 5 8410-2 ####MENDOZA LABORATORYCLIA [id number] [address] [place] Platelet mean volume (Bld) [Entitic vol] 8.5 fL Low 9.0-12.7 [facility] Comment on above: Order Comment: Speci men Type: BLOOD SPECIMENOrdering Facility: [facility] Address: [address] [place] [address] Performed By: #### 5 8410-2 ####M[facility] LABORATORYCLIA [id number] [address] OF [place] Platelets (Bld) [#/Vol] 340 10*3/uL Normal 150-400 [facility] Comment on above: Order Comment: Speci men Type: BLOOD SPECIMENOrdering Facility: [facility] Address: [address] [address] Performed By: #### 5 8410-2 ####MEND[facility] LABORATORYCLIA [id number] [address] OF [place] RBC (Bld) [#/Vol] 4.96 10*6/uL Normal 3.90-5.20 [facility] Comment on above: Order Comment: Speci men Type: BLOOD SPECIMENOrdering Facility: [facility] Address: [address] [address] Performed By: #### 5 8410-2 ####MEND[facility]ZA LABORATORYCLIA [id number] [address] OF [place] WBC (Bld) [#/Vol] 10.21 10*3/uL Normal 3.70-11.00 [facility] Comment on above: Order Comment: Speci men Type: BLOOD SPECIMENOrdering Facility: [facility] Address: [address] [place] [address] Performed By: #### 5 8410-2 ####MEND[facility]ZA LABORATORYCLIA [id number] [address] [place] Comprehensive metabolic 2000 panelon 03-17-2023 Albumin [Mass/Vol] 4.5 g/dL Normal 3.9-4.9 [facility] Comment on above: Order Comment: Speci men Type: BLOOD SPECIMENOrdering Facility: [facility] Address: [address] [place] [address] Performed By: #### 2 4323-8, [id number], ####MEND[facility]ZA LABORATORYCLIA [id number] [place] [address] [place] ALP [Catalytic activity/Vol] 57 U/L Normal 34-123 [facility] Comment on above: Order Comment: Speci men Type: BLOOD SPECIMENOrdering Facility: [facility] Address: [address] [place] [address] Performed By: #### 2 4323-8, [id number], ####M[facility] LABORATORYCLIA [id number] [address] ALT [Catalytic activity/Vol] 10 U/L Normal 7-38 [facility] Comment on above: Order Comment: Speci men Type: BLOOD SPECIMENOrdering Facility: [facility] Address: [address] [place] [address] Performed By: #### 2 4323-8, [id number], ####M[facility] LABORATORYCLIA [id number] [address] Anion gap [Moles/Vol] 11 mmol/L Normal 9-18 [facility] Comment on above: Order Comment: Speci men Type: BLOOD SPECIMENOrdering Facility: [facility] Address: [address] [address] Performed By: #### 2 4323-8, [id number], ####MEND[facility] LABORATORYCLIA [id number] [address] [place] [facility] AST [Catalytic activity/Vol] 16 U/L Normal 13-35 [facility] Comment on above: Order Comment: Speci men Type: BLOOD SPECIMENOrdering Facility: [facility] Address: [address] [address] Performed By: #### 2 4323-8, [id number], ####M[facility] LABORATORYCLIA [id number] [place] [address] [place] Bilirubin [Mass/Vol] 0.3 mg/dL Normal 0.2-1.3 [facility] Comment on above: Order Comment: Speci men Type: BLOOD SPECIMENOrdering Facility: [facility] Address: [address] [place] [address] Performed By: #### 2 4323-8, [id number], ####M[facility] LABORATORYCLIA [id number] [place] [address] [place] Calcium [Mass/Vol] 9.1 mg/dL Normal 8.5-10.2 [facility] Comment on above: Order Comment: Speci men Type: BLOOD SPECIMENOrdering Facility: [facility] Address: [address] [place] [address] Performed By: #### 2 4323-8, [id number], ####MEND[facility] LABORATORYCLIA [id number] [place] [address] [place] Chloride [Moles/Vol] 104 mmol/L Normal 97-105 [facility] Comment on above: Order Comment: Speci men Type: BLOOD SPECIMENOrdering Facility: [facility] Address: [address] [place] [address] Performed By: #### 2 4323-8, [id number], ####M[facility] LABORATORYCLIA [id number] [place] [address] [place] CO2 [Moles/Vol] 22 mmol/L Normal 22-30 [facility] Comment on above: Order Comment: Speci men Type: BLOOD SPECIMENOrdering Facility: [facility] Address: [address] [place] [address] Performed By: #### 2 4323-8, [id number], ####MEND[facility] LABORATORYCLIA [id number] [place] [address] [place] Creatinine [Mass/Vol] 0.64 mg/dL Normal 0.58-0.96 [facility] Comment on above: Order Comment: Franky reynolds Type: BLOOD SPECIMENOrdering Facility: [facility] Address: [address] [phone] Performed By: #### 2 4323-8, [id number], ####REJI LABORATORYCLIA [id number] [address] Creatinine and Glomerular filtration rate.predicted panel (S/P/Bld) 122 mL/min/1.73m??? Normal >=60 [facility] Comment on above: Order Comment: Franky reynolds Type: BLOOD SPECIMENOrdering Facility: [facility] Address: [address] [phone] Result Comment: Claudia mated Glomerular Filtration Rate [...] actual GFR. Performed By: #### 2 4323-8, [id number], 83127-0 ####MEND[facility]ZA LABORATORYCLIA [id number] [place] [address] [place] Glucose [Mass/Vol] 89 mg/dL Normal 74-99 [facility] Comment on above: Order Comment: Franky reynolds Type: BLOOD SPECIMENOrdering Facility: [facility] Address: [address] [place], [place] [address] Result Comment: The [place] Diabetes Association (ADA) provides guidance for cutoff [...] Standards of Medical Care in Diabetes 2016, [place] [employer] Association. Diabetes Care. 2016.39(Suppl 1). Performed By: #### 2 4323-8, [id number], ####MENDOZA LABORATORYCLIA [id number] [place] [address] [place] Potassium [Moles/Vol] 4.0 mmol/L Normal 3.7-5.1 [facility] Comment on above: Order Comment: Speci men Type: BLOOD SPECIMENOrdering Facility: [facility] Address: [address] [address] Performed By: #### 2 4323-8, [id number], ####MEND[facility] LABORATORYCLIA [id number] [place] [address] [place] Protein [Mass/Vol] 7.0 g/dL Normal 6.3-8.0 [facility] Comment on above: Order Comment: Speci men Type: BLOOD SPECIMENOrdering Facility: [facility] Address: [address] [place] [address] Performed By: #### 2 4323-8, [id number], ####MEND[facility]ZA LABORATORYCLIA [id number] [place] [address] [place] Sodium [Moles/Vol] 137 mmol/L Normal 136-144 [facility] Comment on above: Order Comment: Speci men Type: BLOOD SPECIMENOrdering Facility: [facility] Address: [address] [place] [address] Performed By: #### 2 4323-8, [id number], ####MEND[facility]ZA LABORATORYCLIA [id number] [address] [place] Urea nitrogen [Mass/Vol] 7 mg/dL Normal 7-21 [facility] Comment on above: Order Comment: Speci men Type: BLOOD SPECIMENOrdering Facility: [facility] Address: [address] [place] [address] Performed By: #### 2 4323-8, [id number], ####MENDOZA LABORATORYCLIA [id number] [address] [place] ECG COMPLETEon 03-17-2023 ECG COMPLETE Ventricular Rate : 7 0 BPM Atrial Rate : 70 BPM P-R Interval : 120 ms QRS Duration : 78 ms Q-T Interval : 372 ms QTC Calculation(Bazett) : 401 ms Calculated P Broad Top : 73 degrees Calculated R Broad Top : 84 degrees Calculated T Broad Top : 58 degrees NORMAL SINUS RHYTHM WITH SINUS ARRHYTHMIA NORMAL ECG 1310 Confirmed by MD DE LA PAZ MICHAEL ([id number]), assignment editor DAISY BARAJAS ([id number]) on 03/17/2023 4:36:38 PM NAME : JOHANNY FOX PID : [id number] : 1990 Gender : Female Race : ORD : [id number] Procedure Date : Mar 17 2023 13:08:03 Edit Date : Mar 17 2023 16:36:39 Diagnosis: NORMAL SINUS RHYTHM WITH SINUS ARRHYTHMIA NORMAL ECG 1310 Confirmed by MD DE LA PAZ MICHAEL ([id number]), assignment editor DAISY BARAJAS ([id number]) on 03/17/2023 4:36:38 PM Test Reason : Chest Pain Location : 1 : ER ED Overread By : MD DE LA PAZ MICHAEL Edited By : DAISY BARAJAS Referred By : , Acquired by : PEDRO [facility] ED NOTEon 03-17-2023 ED NOTE HNO ID: [id number] Author: Brad Shipley RN Service: ? Author [...] self. IV removed intact prior to d/c. [facility] ED NOTE HNO ID: [id number] Author: Peng Mart RN Service: Nursing Author Type: Registered Nurse Type: ED Notes Filed: 03/17/2023 1:01 PM Note Text: Pt presents to ER from home for CC chest pain and SOB that started when she woke up around 0700 today. Pt took two Asprin without relief. [facility] ED PROV NOTEon 03-17-2023 ED PROV NOTE HNO ID: [id number] Author: Zuri De La Paz MD Service: [...] by anxiety (more content not included)... Normal [facility] HIGH SENSITIVITY TROPONIN T (INITIAL)on 03-17-2023 Troponin T.cardiac High sensitivity method [Mass/Vol] <6 Normal <12 [facility] Comment on above: Order Comment: Franky reynolds Type: BLOOD SPECIMENOrdering Facility: [facility] Address: [address] [place] [address] Result Comment: When assessing risk for acute [...] day MACE. Performed By: #### 2 4323-8, [id number], 37656-8 ####MENDOZA LABORATORYCLIA [id number] [address] [place] HIGH SENSITIVITY TROPONIN T (SECOND)on 03-17-2023 Troponin T.cardiac High sensitivity method [Mass/Vol] <6 Normal <12 [facility] Comment on above: Order Comment: Franky reynolds Type: BLOOD SPECIMENOrdering Facility: [facility] Address: [address] [place] [address] Result Comment: When assessing risk for acute [...] 30 day MACE. Performed By: #### L [id number] ####MENDOZA LABORATORYCLIA [id number] [place] [id number] [place] Magnesium SerPl-mCncon 03-17 Magnesium [Mass/Vol] 2.1 mg/dL Normal 1.7-2.3 [facility] Comment on above: Order Comment: Franky reynolds Type: BLOOD SPECIMENOrdering Facility: [facility] Address: [address] [place], [place] [address] [phone] Performed By: #### 2 4323-8, [id number], 16894-3 ####MENDOZA LABORATORYCLIA [id number] [place] [address] [place] XR CHEST 2V [...] tissues: Unremarkable. IMPRESSION: No acute radiographic abnormality. Clinical Programmer: PSCB Transcribe Date/Time: Mar 17 2023 2:09P Dictated by : ASIM WARNER MD This examination was interpreted and the report reviewed and electronically signed by: ASIM WARNER MD on Mar 17 2023 2:09PM EST [id number] Normal [facility] Basic metabolic 2000 panelon 12-29-2022 Anion gap [Moles/Vol] 10 mmol/L Normal 9-18 [facility] Comment on above: Order Comment: Speci men Type: BLOOD SPECIMENOrdering Facility: [facility] Address: [address] [place] [address] Performed By: #### 2 4321-2 ####MENDOZA LABORATORYCLIA [id number] [address] OF [facility] Calcium [Mass/Vol] 8.8 mg/dL Normal 8.5-10.2 [facility] Comment on above: Order Comment: Speci men Type: BLOOD SPECIMENOrdering Facility: [facility] Address: [address] [place] [address] Performed By: #### 2 4321-2 ####MENDOZA LABORATORYCLIA [id number] [address] Chloride [Moles/Vol] 108 mmol/L High 97-105 [facility] Comment on above: Order Comment: Speci men Type: BLOOD SPECIMENOrdering Facility: [facility] Address: [address] [place] [address] Performed By: #### 2 4321-2 ####MENDOZA LABORATORYCLIA [id number] [address] CO2 [Moles/Vol] 22 mmol/L Normal 22-30 [facility] Comment on above: Order Comment: Speci men Type: BLOOD SPECIMENOrdering Facility: [facility] Address: [address] [place] [address] Performed By: #### 2 4321-2 ####MENDOZA LABORATORYCLIA [id number] [address] Creatinine [Mass/Vol] 0.69 mg/dL Normal 0.58-0.96 [facility] Comment on above: Order Comment: Speci men Type: BLOOD SPECIMENOrdering Facility: [facility] Address: [address] [place] [address] Performed By: #### 2 4321-2 ####MENDOZA LABORATORYCLIA [id number] [address] ESTIMATED GLOMERULAR FILTRATION RATE 120 mL/min/1.73m??? Normal >=60 [facility] Comment on above: Order Comment: Speci men Type: BLOOD SPECIMENOrdering Facility: [facility] Address: [address] [place] [address] Result Comment: Claudia mated Glomerular Filtration Rate [...] Performed By: #### 2 4321-2 ####MENDOZA LABORATORYCLIA [id number] [place] [address] [place] Glucose [Mass/Vol] 113 mg/dL High 74-99 [facility] Comment on above: Order Comment: Franky reynolds Type: BLOOD SPECIMENOrdering Facility: [facility] Address: [address] [place] [address] Result Comment: The [place] [employer] (ADA) provides guidance for cutoff [...] Standards of Medical Care in Diabetes 2016, [place] [employer]. Diabetes Care. 2016.39(Suppl 1). Performed By: #### 2 4321-2 ####MENDOZA LABORATORYCLIA [id number] [place] [address] [place] Potassium [Moles/Vol] 4.5 mmol/L Normal 3.7-5.1 [facility] Comment on above: Order Comment: Franky reynolds Type: BLOOD SPECIMENOrdering Facility: [facility] Address: [address] [place] [address] Performed By: #### 2 4321-2 ####MENDOZA LABORATORYCLIA [id number] [place] [address] [place] Sodium [Moles/Vol] 140 mmol/L Normal 136-144 [facility] Comment on above: Order Comment: Franky reynolds Type: BLOOD SPECIMENOrdering Facility: [facility] Address: [address] [place] [address] Performed By: #### 2 4321-2 ####MENDOZA LABORATORYCLIA [id number] [place] [address] [place] Urea nitrogen [Mass/Vol] 9 mg/dL Normal 7-21 [facility] Comment on above: Order Comment: Speci men Type: BLOOD SPECIMENOrdering Facility: [facility] Address: [address] [place] [address] Performed By: #### 2 4321-2 ####MENDOZA LABORATORYCLIA [id number] [address] [place] CBC W Auto Differential pane l (Bld)on 12-29-2022 Basophils (Bld) [#/Vol] 0.03 10*3/uL Normal <0.11 [facility] Comment on above: Order Comment: Speci men Type: BLOOD SPECIMENOrdering Facility: [facility] Address: [address] [place] [address] Performed By: #### 5 7021-8 ####MENDOZA LABORATORYCLIA [id number] [address] Basophils/100 WBC (Bld) 0.5 % Normal [facility] Comment on above: Order Comment: Speci men Type: BLOOD SPECIMENOrdering Facility: [facility] Address: [address] [place] [address] Performed By: #### 5 7021-8 ####MENDOZA LABORATORYCLIA [id number] [address] [place] [facility] Differential cell count method Nom (Bld) Auto Normal [facility] Comment on above: Order Comment: Speci men Type: BLOOD SPECIMENOrdering Facility: [facility] Address: [address] [place] [address] Performed By: #### 5 7021-8 ####MENDOZA LABORATORYCLIA [id number] [place] [address] [place] Eosinophils (Bld) [#/Vol] 0.07 10*3/uL Normal <0.46 [facility] Comment on above: Order Comment: Speci men Type: BLOOD SPECIMENOrdering Facility: [facility] Address: [address] [place] [address] Performed By: #### 5 7021-8 ####MENDOZA LABORATORYCLIA [id number] [address] Eosinophils/100 WBC (Bld) 1.3 % Normal [facility] Comment on above: Order Comment: Speci men Type: BLOOD SPECIMENOrdering Facility: [facility] Address: [address] [place] [address] Performed By: #### 5 7021-8 ####MENDOZA LABORATORYCLIA [id number] [place] [address] [place] Erythrocyte distribution width (RBC) [Ratio] 12.5 % Normal 11.5-15.0 [facility] Comment on above: Order Comment: Speci men Type: BLOOD SPECIMENOrdering Facility: [facility] Address: [address] [address] Performed By: #### 5 7021-8 ####MENDOZA LABORATORYCLIA [id number] [address] [place] Hematocrit (Bld) [Volume fraction] 42.6 % Normal 36.0-46.0 [facility] Comment on above: Order Comment: Speci men Type: BLOOD SPECIMENOrdering Facility: [facility] Address: [address] [address] Performed By: #### 5 7021-8 ####MENDOZA LABORATORYCLIA [id number] [place] [address] [place] Hemoglobin (Bld) [Mass/Vol] 14.6 g/dL Normal 11.5-15.5 [facility] Comment on above: Order Comment: Speci men Type: BLOOD SPECIMENOrdering Facility: [facility] Address: [address] [address] Performed By: #### 5 7021-8 ####MENDOZA LABORATORYCLIA [id number] [place] [address] [place] Immature granulocytes (Bld) [#/Vol] 10*3/uL Normal <0.10 [facility] Comment on above: Order Comment: Speci men Type: BLOOD SPECIMENOrdering Facility: [facility] Address: [address] [place] [address] Performed By: #### 5 7021-8 ####MENDOZA LABORATORYCLIA [id number] [address] [place] Immature granulocytes/100 WBC (Bld) 0.2 % Normal [facility] Comment on above: Order Comment: Speci men Type: BLOOD SPECIMENOrdering Facility: [facility] Address: [address] [place] [address] Performed By: #### 5 7021-8 ####MENDOZA LABORATORYCLIA [id number] [address] Lymphocytes (Bld) [#/Vol] 1.34 10*3/uL Normal 1.00-4.00 [facility] Comment on above: Order Comment: Speci men Type: BLOOD SPECIMENOrdering Facility: [facility] Address: [address] [place] [address] Performed By: #### 5 7021-8 ####MENDOZA LABORATORYCLIA [id number] [address] Lymphocytes/100 WBC (Bld) 24.4 % Normal [facility] Comment on above: Order Comment: Speci men Type: BLOOD SPECIMENOrdering Facility: [facility] Address: [address] [place] [address] Performed By: #### 5 7021-8 ####MENDOZA LABORATORYCLIA [id number] [address] MCH (RBC) [Entitic mass] 31.2 pg Normal 26.0-34.0 [facility] Comment on above: Order Comment: Speci men Type: BLOOD SPECIMENOrdering Facility: [facility] Address: [address] [place] [address] Performed By: #### 5 7021-8 ####MENDOZA LABORATORYCLIA [id number] [address] MCHC (RBC) [Mass/Vol] 34.3 g/dL Normal 30.5-36.0 [facility] Comment on above: Order Comment: Speci men Type: BLOOD SPECIMENOrdering Facility: [facility] Address: [address] [place] [address] Performed By: #### 5 7021-8 ####MENDOZA LABORATORYCLIA [id number] [address] MCV (RBC) [Entitic vol] 91.0 fL Normal 80.0-100.0 [facility] Comment on above: Order Comment: Speci men Type: BLOOD SPECIMENOrdering Facility: [facility] Address: [address] [place] [address] Performed By: #### 5 7021-8 ####MENDOZA LABORATORYCLIA [id number] [address] [place] Monocytes (Bld) [#/Vol] 0.58 10*3/uL Normal <0.87 [facility] Comment on above: Order Comment: Speci men Type: BLOOD SPECIMENOrdering Facility: [facility] Address: [address] [place] [address] Performed By: #### 5 7021-8 ####MENDOZA LABORATORYCLIA [id number] [address] Monocytes/100 WBC (Bld) 10.5 % Normal [facility] Comment on above: Order Comment: Speci men Type: BLOOD SPECIMENOrdering Facility: [facility] Address: [address] [place] [address] Performed By: #### 5 7021-8 ####MENDOZA LABORATORYCLIA [id number] [address] [place] Neutrophils (Bld) [#/Vol] 3.47 10*3/uL Normal 1.45-7.50 [facility] Comment on above: Order Comment: Speci men Type: BLOOD SPECIMENOrdering Facility: [facility] Address: [address] [place] [address] Performed By: #### 5 7021-8 ####MENDOZA LABORATORYCLIA [id number] [address] Neutrophils/100 WBC (Bld) 63.1 % Normal [facility] Comment on above: Order Comment: Speci men Type: BLOOD SPECIMENOrdering Facility: [facility] Address: [address] [place] [address] Performed By: #### 5 7021-8 ####MENDOZA LABORATORYCLIA [id number] [address] Nucleated RBC (Bld) [#/Vol] 10*3/uL Normal <0.01 [facility] Comment on above: Order Comment: Speci men Type: BLOOD SPECIMENOrdering Facility: [facility] Address: [address] [address] Performed By: #### 5 7021-8 ####MENDOZA LABORATORYCLIA [id number] [address] [place] Nucleated RBC/100 WBC (Bld) [Ratio] 0.0 /100 WBC Normal [facility] Comment on above: Order Comment: Speci men Type: BLOOD SPECIMENOrdering Facility: [facility] Address: [address] [address] Performed By: #### 5 7021-8 ####MENDOZA LABORATORYCLIA [id number] [address] [place] Platelet mean volume (Bld) [Entitic vol] 8.4 fL Low 9.0-12.7 [facility] Comment on above: Order Comment: Speci men Type: BLOOD SPECIMENOrdering Facility: [facility] Address: [address] [address] Performed By: #### 5 7021-8 ####MENDOZA LABORATORYCLIA [id number] [address] [place] Platelets (Bld) [#/Vol] 238 10*3/uL Normal 150-400 [facility] Comment on above: Order Comment: Speci men Type: BLOOD SPECIMENOrdering Facility: [facility] Address: [address] [address] Performed By: #### 5 7021-8 ####MENDOZA LABORATORYCLIA [id number] [place] [address] [place] RBC (Bld) [#/Vol] 4.68 10*6/uL Normal 3.90-5.20 [facility] Comment on above: Order Comment: Speci men Type: BLOOD SPECIMENOrdering Facility: [facility] Address: [address] [address] Performed By: #### 5 7021-8 ####MENDOZA LABORATORYCLIA [id number] [place] [address] [place] WBC (Bld) [#/Vol] 5.50 10*3/uL Normal 3.70-11.00 [facility] Comment on above: Order Comment: Speci men Type: BLOOD SPECIMENOrdering Facility: [facility] Address: [facility] [address] [id number] Performed By: #### 5 7021-8 ####SHAWANO LABORATORYCLIA [id number] [place] [address] [facility] [place] ED NOTEon 12-29-2022 ED NOTE HNO ID: [id number] Author: Garrett Reid RN Service: ? Author [...] IV removed intact prior to leaving. Normal [facility] ED PROV NOTEon 12-29-2022 ED PROV NOTE HNO ID: [id number] Author: Zuri Tang DO Service: Emergency Medicine [...] intact. Coordination: Coordination is intact. Coordination normal. Hzasbd-Cvzn-Egkahd Test normal. Diagnostic Testing ED Labs Ordered [...] complaint based differ (more content not included)... [facility] 05-31-2022 [facility] HNO ID: [id number] Author: PAWAN Capellan Service: Radiology Author Type: [...] PAWAN Capellan May 31, 2022 7:48 PM [facility] HNO ID: [id number] Author: RT Mandy(R) Service: ? Author Type: [...] RT Mandy(R) May 31, 2022 7:15 PM [facility] CBC W Auto Differential pane l (Bld)on 05-31-2022 Basophils (Bld) [#/Vol] 0.04 10*3/uL Normal <0.11 [facility] Comment on above: Order Comment: Speci men Type: BLOOD SPECIMENOrdering Facility: [facility] Address: [address] [address] Performed By: #### 5 7021-8 ####MENDOZA LABORATORYCLIA [id number] [address] [place] Basophils/100 WBC (Bld) 0.4 % Normal [facility] Comment on above: Order Comment: Speci men Type: BLOOD SPECIMENOrdering Facility: [facility] Address: [address] [address] Performed By: #### 5 7021-8 ####MENDOZA LABORATORYCLIA [id number] [address] Differential cell count method Nom (Bld) Auto Normal [facility] Comment on above: Order Comment: Speci men Type: BLOOD SPECIMENOrdering Facility: [facility] Address: [address] [place] [address] Performed By: #### 5 7021-8 ####MENDOZA LABORATORYCLIA [id number] [place] [address] [place] Eosinophils (Bld) [#/Vol] 0.06 10*3/uL Normal <0.46 [facility] Comment on above: Order Comment: Speci men Type: BLOOD SPECIMENOrdering Facility: [facility] Address: [address] [place] [address] Performed By: #### 5 7021-8 ####MENDOZA LABORATORYCLIA [id number] [address] Eosinophils/100 WBC (Bld) 0.7 % Normal [facility] Comment on above: Order Comment: Speci men Type: BLOOD SPECIMENOrdering Facility: [facility] Address: [address] [place] [address] Performed By: #### 5 7021-8 ####MENDOZA LABORATORYCLIA [id number] [address] [place] Erythrocyte distribution width (RBC) [Ratio] 12.4 % Normal 11.5-15.0 [facility] Comment on above: Order Comment: Speci men Type: BLOOD SPECIMENOrdering Facility: [facility] Address: [address] [place] [address] Performed By: #### 5 7021-8 ####MENDOZA LABORATORYCLIA [id number] [address] Hematocrit (Bld) [Volume fraction] 43.8 % Normal 36.0-46.0 [facility] Comment on above: Order Comment: Speci men Type: BLOOD SPECIMENOrdering Facility: [facility] Address: [address] [place] [address] Performed By: #### 5 7021-8 ####MENDOZA LABORATORYCLIA [id number] [place] [address] [place] Hemoglobin (Bld) [Mass/Vol] 14.7 g/dL Normal 11.5-15.5 [facility] Comment on above: Order Comment: Speci men Type: BLOOD SPECIMENOrdering Facility: [facility] Address: [address] [place] [address] Performed By: #### 5 7021-8 ####MENDOZA LABORATORYCLIA [id number] [place] [address] [place] Immature granulocytes (Bld) [#/Vol] 0.03 10*3/uL Normal <0.10 [facility] Comment on above: Order Comment: Speci men Type: BLOOD SPECIMENOrdering Facility: [facility] Address: [address] [place] [address] Performed By: #### 5 7021-8 ####MENDOZA LABORATORYCLIA [id number] [address] [place] Immature granulocytes/100 WBC (Bld) 0.3 % Normal [facility] Comment on above: Order Comment: Speci men Type: BLOOD SPECIMENOrdering Facility: [facility] Address: [address] [place] [address] Performed By: #### 5 7021-8 ####MENDOZA LABORATORYCLIA [id number] [address] [place] Lymphocytes (Bld) [#/Vol] 2.63 10*3/uL Normal 1.00-4.00 [facility] Comment on above: Order Comment: Speci men Type: BLOOD SPECIMENOrdering Facility: [facility] Address: [address] [place] [address] Performed By: #### 5 7021-8 ####MENDOZA LABORATORYCLIA [id number] [address] [place] Lymphocytes/100 WBC (Bld) 28.7 % Normal [facility] Comment on above: Order Comment: Speci men Type: BLOOD SPECIMENOrdering Facility: [facility] Address: [address] [place] [address] Performed By: #### 5 7021-8 ####MENDOZA LABORATORYCLIA [id number] [address] MCH (RBC) [Entitic mass] 31.1 pg Normal 26.0-34.0 [facility] Comment on above: Order Comment: Speci men Type: BLOOD SPECIMENOrdering Facility: [facility] Address: [address] [place] [address] Performed By: #### 5 7021-8 ####MENDOZA LABORATORYCLIA [id number] [address] MCHC (RBC) [Mass/Vol] 33.6 g/dL Normal 30.5-36.0 [facility] Comment on above: Order Comment: Speci men Type: BLOOD SPECIMENOrdering Facility: [facility] Address: [address] [place] [address] Performed By: #### 5 7021-8 ####MENDOZA LABORATORYCLIA [id number] [address] MCV (RBC) [Entitic vol] 92.6 fL Normal 80.0-100.0 [facility] Comment on above: Order Comment: Speci men Type: BLOOD SPECIMENOrdering Facility: [facility] Address: [address] [place] [address] Performed By: #### 5 7021-8 ####MENDOZA LABORATORYCLIA [id number] [address] Monocytes (Bld) [#/Vol] 0.46 10*3/uL Normal <0.87 [facility] Comment on above: Order Comment: Speci men Type: BLOOD SPECIMENOrdering Facility: [facility] Address: [address] [place] [address] Performed By: #### 5 7021-8 ####MENDOZA LABORATORYCLIA [id number] [address] Monocytes/100 WBC (Bld) 5.0 % Normal [facility] Comment on above: Order Comment: Speci men Type: BLOOD SPECIMENOrdering Facility: [facility] Address: [address] [place] [address] Performed By: #### 5 7021-8 ####MENDOZA LABORATORYCLIA [id number] [place] [address] [place] Neutrophils (Bld) [#/Vol] 5.93 10*3/uL Normal 1.45-7.50 [facility] Comment on above: Order Comment: Speci men Type: BLOOD SPECIMENOrdering Facility: [facility] Address: [address] [place] [address] Performed By: #### 5 7021-8 ####MENDOZA LABORATORYCLIA [id number] [address] [place] Neutrophils/100 WBC (Bld) 64.9 % Normal [facility] Comment on above: Order Comment: Speci men Type: BLOOD SPECIMENOrdering Facility: [facility] Address: [address] [place] [address] Performed By: #### 5 7021-8 ####MENDOZA LABORATORYCLIA [id number] [place] [address] [place] Nucleated RBC (Bld) [#/Vol] 10*3/uL Normal <0.01 [facility] Comment on above: Order Comment: Speci men Type: BLOOD SPECIMENOrdering Facility: [facility] Address: [address] [place] [address] Performed By: #### 5 7021-8 ####MENDOZA LABORATORYCLIA [id number] [address] Nucleated RBC/100 WBC (Bld) [Ratio] 0.0 /100 WBC Normal [facility] Comment on above: Order Comment: Speci men Type: BLOOD SPECIMENOrdering Facility: [facility] Address: [address] [place] [address] Performed By: #### 5 7021-8 ####MENDOZA LABORATORYCLIA [id number] [address] [place] Platelet mean volume (Bld) [Entitic vol] 8.5 fL Low 9.0-12.7 [facility] Comment on above: Order Comment: Speci men Type: BLOOD SPECIMENOrdering Facility: [facility] Address: [address] [place] [address] Performed By: #### 5 7021-8 ####MENDOZA LABORATORYCLIA [id number] [address] Platelets (Bld) [#/Vol] 325 10*3/uL Normal 150-400 [facility] Comment on above: Order Comment: Speci men Type: BLOOD SPECIMENOrdering Facility: [facility] Address: [address] [place] [address] Performed By: #### 5 7021-8 ####MENDOZA LABORATORYCLIA [id number] [address] [place] RBC (Bld) [#/Vol] 4.73 10*6/uL Normal 3.90-5.20 [facility] Comment on above: Order Comment: Speci men Type: BLOOD SPECIMENOrdering Facility: [facility] Address: [address] [place] [address] Performed By: #### 5 7021-8 ####MENDOZA LABORATORYCLIA [id number] [address] WBC (Bld) [#/Vol] 9.15 10*3/uL Normal 3.70-11.00 [facility] Comment on above: Order Comment: Speci men Type: BLOOD SPECIMENOrdering Facility: [facility] Address: [address] [place] [address] Performed By: #### 5 7021-8 ####MENDOZA LABORATORYCLIA [id number] [address] [place] Comprehensive metabolic 2000 panelon 05-31-2022 Albumin [Mass/Vol] 4.6 g/dL Normal 3.9-4.9 [facility] Comment on above: Order Comment: Speci men Type: BLOOD SPECIMENOrdering Facility: [facility] Address: [address] [place] [address] Performed By: #### 2 4323-8, [id number], 66885-8 ####[facility] LABORATORYCLIA [id number] [address] [place] ALP [Catalytic activity/Vol] 58 U/L Normal 34-123 [facility] Comment on above: Order Comment: Speci men Type: BLOOD SPECIMENOrdering Facility: [facility] Address: [address] [place] [address] Performed By: #### 2 4323-8, [id number], ####[facility] LABORATORYCLIA [id number] [address] OF [facility] ALT [Catalytic activity/Vol] 10 U/L Normal 7-38 [facility] Comment on above: Order Comment: Speci men Type: BLOOD SPECIMENOrdering Facility: [facility] Address: [place] [address] Performed By: #### 2 4323-8, [id number], ####[facility] LABORATORYCLIA [id number] [address] [facility] Anion gap [Moles/Vol] 8 mmol/L Low 9-18 [facility] Comment on above: Order Comment: Speci men Type: BLOOD SPECIMENOrdering Facility: [facility] Address: [address] [place] [address] Performed By: #### 2 4323-8, [id number], ####[place] LABORATORYCLIA [id number] [address] [facility] AST [Catalytic activity/Vol] 15 U/L Normal 13-35 [facility] Comment on above: Order Comment: Speci men Type: BLOOD SPECIMENOrdering Facility: [facility] Address: [address] [place] [place] [address] Performed By: #### 2 4323-8, [id number], ####[facility] LABORATORYCLIA [id number] [address] Bilirubin [Mass/Vol] 0.3 mg/dL Normal 0.2-1.3 [facility] Comment on above: Order Comment: Speci men Type: BLOOD SPECIMENOrdering Facility: [facility] Address: [address] [address] Performed By: #### 2 4323-8, [id number], ####[facility] LABORATORYCLIA [id number] [place] [address] [place] Calcium [Mass/Vol] 9.5 mg/dL Normal 8.5-10.2 [facility] Comment on above: Order Comment: Speci men Type: BLOOD SPECIMENOrdering Facility: [facility] Address: [address] [place] [address] Performed By: #### 2 4323-8, [id number], ####[facility] LABORATORYCLIA [id number] [place] [address] [place] Chloride [Moles/Vol] 104 mmol/L Normal 97-105 [facility] Comment on above: Order Comment: Speci men Type: BLOOD SPECIMENOrdering Facility: [facility] Address: [address] [place] [address] Performed By: #### 2 4323-8, [id number], ####[facility] LABORATORYCLIA [id number] [place] [address] [place] CO2 [Moles/Vol] 27 mmol/L Normal 22-30 [facility] Comment on above: Order Comment: Speci men Type: BLOOD SPECIMENOrdering Facility: [facility] Address: [address] [place] [address] Performed By: #### 2 4323-8, [id number], ####[facility] LABORATORYCLIA [id number] [place] [address] [place] Creatinine [Mass/Vol] 0.68 mg/dL Normal 0.58-0.96 [facility] Comment on above: Order Comment: Speci men Type: BLOOD SPECIMENOrdering Facility: [facility] Address: [address] [place] [address] Performed By: #### 2 4323-8, [id number], ####[facility] LABORATORYCLIA [id number] [place] [address] [facility] [place] ESTIMATED GLOMERULAR FILTRATION RATE 120 mL/min/1.73m??? Normal >=60 [facility] Comment on above: Order Comment: Speci men Type: BLOOD SPECIMENOrdering Facility: [facility] Address: [address] [place] [phone] Result Comment: Claudia mated Glomerular Filtration Rate [...] actual GFR. Performed By: #### 2 4323-8, [id number], ####[facility] LABORATORYCLIA [id number] [place] [id number] [place] Glucose [Mass/Vol] 88 mg/dL Normal 74-99 [facility] Comment on above: Order Comment: Franky reynolds Type: BLOOD SPECIMENOrdering Facility: [facility] Address: [place] [address] Result Comment: The [place] Diabetes Association (ADA) provides guidance for cutoff [...] Standards of Medical Care in Diabetes 2016, [place] [employer]. Diabetes Care. 2016.39(Suppl 1). Performed By: #### 2 4323-8, [id number], ####[facility] LABORATORYCLIA [id number] [place] [id number] [place] Potassium [Moles/Vol] 4.5 mmol/L Normal 3.7-5.1 [facility] Comment on above: Order Comment: Franky reynolds Type: BLOOD SPECIMENOrdering Facility: [facility] Address: [address] [facility] [place] [phone] Performed By: #### 2 4323-8, [id number], ####[facility] LABORATORYCLIA [id number] [address] [facility] Protein [Mass/Vol] 7.2 g/dL Normal 6.3-8.0 [facility] Comment on above: Order Comment: Speci men Type: BLOOD SPECIMENOrdering Facility: [facility] Address: [address] [place] [address] Performed By: #### 2 4323-8, [id number], ####[facility] LABORATORYCLIA [id number] [address] Sodium [Moles/Vol] 139 mmol/L Normal 136-144 [facility] Comment on above: Order Comment: Speci men Type: BLOOD SPECIMENOrdering Facility: [facility] Address: [address] [place] [address] Performed By: #### 2 4323-8, [id number], ####[facility] LABORATORYCLIA [id number] [address] Urea nitrogen [Mass/Vol] 6 mg/dL Low 7-21 [facility] Comment on above: Order Comment: Speci men Type: BLOOD SPECIMENOrdering Facility: [facility] Address: [address] [place] [address] Performed By: #### 2 4323-8, [id number], ####[facility] LABORATORYCLIA [id number] [address] OF [place] D dimer FEU PPP-mCncon 05-31 Fibrin D-dimer FEU (PPP) [Mass/Vol] 280 ng/mL FEU Normal <500 [facility] Comment on above: Order Comment: Speci men Type: BLOOD SPECIMENOrdering Facility: [facility] Address: [address] [place] [address] Performed By: #### 4 8065-7 ####[facility] LABORATORYCLIA [id number] [address] OF [place] ECG COMPLETEon 05-31-2022 ECG COMPLETE Ventricular Rate : 6 9 BPM Atrial Rate : 69 BPM P-R Interval : 114 ms QRS Duration : 76 ms Q-T Interval : 370 ms QTC Calculation(Bazett) : 396 ms Calculated P Broad Top : 55 degrees Calculated R Broad Top : 86 degrees Calculated T Broad Top : 65 degrees NORMAL SINUS RHYTHM NORMAL ECG 1618 NO STEMI Confirmed by JAGDISH NELSON MD ([id number]), assignment editor WALE RIVERA ([id number]) on 06/01/2022 6:30:40 AM NAME : JOHANNY FOX PID : [id number] : 1990 Gender : Female Race : ORD : [id number] Procedure Date : May 31 2022 15:45:32 Edit Date : Jun 01 2022 06:30:44 Diagnosis: NORMAL SINUS RHYTHM NORMAL ECG 1618 NO STEMI Confirmed by JAGDISH NELSON MD ([id number]), assignment editor WALE RIVERA ([id number]) on 06/01/2022 6:30:40 AM Test Reason : Chest Pain Location : 1 : ER Overread By : JAGDISH NELSON MD Edited By : WALE RIVERA Referred By : , Acquired by : KAROLINA [facility] ED NOTEon 05-31-2022 ED NOTE HNO ID: [id number] Author: Dipti Maier RN Service: ? Author Type: Registered Nurse Type: ED Notes Filed: 05/31/2022 8:42 PM Note Text: Discharge instructions d/w pt at bedside. Stated understanding with no further questions for this nurse. Encouraged f/u with PCP and referring doctors given. Stated understanding. [facility] ED PROV NOTEon 05-31-2022 ED PROV NOTE HNO ID: [id number] Author: Michael Finney PA-C Service: ? Author Type: Physician Product Scientist Type: ED Provider Notes Filed: 05/31/2022 8:26 [...] 500 ng/ (more content not included)... Normal [facility] HIGH SENSITIVITY TROPONIN T (INITIAL)on 05-31-2022 HIGH SENSITIVITY LYLE <6 Normal <12 [facility] Comment on above: Order Comment: Speci men Type: BLOOD SPECIMENOrdering Facility: [facility] Address: [address] [address] Result Comment: When assessing risk for acute [...] day MACE. Performed By: #### 2 4323-8, [id number], ####[facility] LABORATORYCLIA [id number] [place] [address] [place] HIGH SENSITIVITY TROPONIN T (SECOND)on 05-31-2022 HIGH SENSITIVITY LYLE <6 Normal <12 [facility] Comment on above: Order Comment: Franky reynolds Type: BLOOD SPECIMENOrdering Facility: [facility] Address: [address] [place] [address] Result Comment: When assessing risk for acute [...] 30 day MACE. Performed By: #### L [id number] ####[facility] LABORATORYCLIA [id number] [place] [address] [place] Magnesium SerPl-mCncon 05-31 Magnesium [Mass/Vol] 2.0 mg/dL Normal 1.7-2.3 [facility] Comment on above: Order Comment: Franky reynolds Type: BLOOD SPECIMENOrdering Facility: [facility] Address: [address] [address] Performed By: #### 2 4323-8, [id number], 36094-1 ####[facility] LABORATORYCLIA [id number] [place] [address] [place] US DVT LOWER [...] thrombus in the left leg, where examined. Clinical Programmer: CHRIS Transcribe Date/Time: May 31 2022 7:53P Dictated by : LANG MCKINLEY MD This examination was interpreted and the report reviewed and electronically signed by: LANG MCKINLEY MD on May 31 2022 7:58PM EST [id number] [facility] XR CHEST 1V FRONTAL PORTon 1 [...] cardiomediastinal silhouette. IMPRESSION: No acute cardiopulmonary process. Clinical Programmer: [facility] Transcribe Date/Time: May 31 2022 7:24P Dictated by : LANG MCKINLEY MD This examination was interpreted and the report reviewed and electronically signed by: LANG MCKINLEY MD on May 31 2022 7:24PM EST [id number] [facility] MRI CERVICAL SPINE LEANNE Ramires 10-09-2021 [facility]: [id number] ACCESSION EXAM DATE/TIME PROCEDURE ORDERING PROVIDER [id number] 10/09/2021 08:27 EDT MRI Spine Cervical w/o Som LENNON, GISELLE Contrast CPT code 36098 Reason For Exam (MRI Spine Cervical w/o [...] HARLAN Transcribed Date and Time: 10/09/2021 8:26 [facility] Asim Lebron MD - 10/09/2021 [id number] ACCESSION EXAM DATE/TIME PROCEDURE ORDERING PROVIDER [id number] 10/09/2021 08:27 EDT MRI Spine Cervical w/o Som LENNON, GISELLE Arana CPT code 78820 Reason For Exam (MRI Spine Cervical w/o [...] CONTRA STOrdered By: Asim Lebron on 10-09-2021 [facility] Work Phone: MRI Spine Cervical w/o Contr azeem 10-09-2021 MRI Spine Cervical w/o Contrast Patient Name: JOHANNY FOX [facility]#: [id number] Magnetic Resonance Imaging ACCESSION EXAM DATE/TIME PROCEDURE ORDERING PROVIDER [id number] 10/09/2021 08:27 EDT MRI Spine Cervical w/o Som LENNON, GISELLE Contrast CPT code 83028 Reason For Exam (MRI Spine Cervical w/o [...] Transcribed Date and Time: 10/09/2021 8:26 Normal [facility] Office Visit (Urgent Care)on 01-05-2021 Follow-up visit Diagnoses/Problems Assessed Torticollis (723.5) (M43.6) Orders Torticollis Start: Cyclobenzaprine HCl - 10 MG Oral Tablet; TAKE 1 TABLET 3 TIMES DAILY Rx By: Feroz Cole; Dispense: 5 Days ; #:15 Tablet; Refill: 0;For: Torticollis; LEEANNE = N; Sent To: [facility] [place], Start: Naproxen 500 MG Oral Tablet; TAKE 1 TABLET EVERY 12 HOURS WITH FOOD Rx By: Feroz Cole; Dispense: 10 Days ; #:20 Tablet; Refill: 0;For: Torticollis; LEEANNE = N; Sent To: [facility]- [place], Patient Discussion/Summary Please see your primary care [...] No new numbness or tingling. She tried yoqx-cwk-eadedpf naproxen. Review of systems is otherwise negative [...] HOURS. MAX 200MG/DAY. Vitals Vital Signs Recorded: 03Tcl7333 09:34AM Yebrgfzgijc37 F Heart Rate79 Kavhcvxefdx82 Phldfths11 Qxqsorzas73 Height5 ft 1 in Rxbmne544 lb BMI Mxbxttcdjp85.27 kg/m2 BSA Calculated1.42 Tobacco Usea) Yes O2 Pwwdxtidqi23 Pain Scale7 Physical Exam Patient appears in [...] Jan 05 2021 9:43AM EST (Author) Normal [facility] Tobacco Screening.on 021 Tobacco use status HS a) Yes [facility] Work Phone: XR KNEE LEFT (MIN 4 VIEWS)on 05-14-2020 Patient Name: JOHANNY FOX ---Diagnostic Radiology--- Exam Date/Time 05/14/2020 10:51:22 EST Exam CR Knee Complete 4+ Views Left Ordering Physician KENDALL GOLDSMITH Accession Number [id number] CPT4 Codes 90880 () Reason For Exam Pain in left [...] ALFRED Transcribed Date and Time: 05/14/2020 12:08 [facility], [place], [facility] Incoming Radiology Results From [facility] - 05/14/2020 12:10 PM EST Patient Name: JOHANNY FOX ---Diagnostic Radiology--- Exam Date/Time 05/14/2020 10:51:22 EST Exam CR Knee Complete 4+ Views Left Ordering Physician KENDALL GOLDSMITH Accession Number [id number] CPT4 Codes 94293 () Reason For Exam Pain in left [...] ALFRED Transcribed Date and Time: 05/14/2020 12:08 [facility], [place] 2018 CORONAVIRUSon 2018 CORONAVIRUS COVID 19 SOURCE BILINGUAL OPERATOR: UPPER RESPIRATORY TRACT SWAB COVID 19 RESULT BILINGUAL OPERATOR: Negative for COVID19 (SARS CoV2) by PCR. This test was developed and its performance characteristics determined by [facility] [place]. This test has been authorized by FDA under an Emergency Use Authorization (EUA). This test has been validated in accordance with the FDA's Guidance Document "Policy for Diagnostics Testing in Laboratories Certified to Perform High Complexity Testing under CLIA prior to Emergency use Authorization for Coronavirus Disease 2019 during the Public Health Emergency" issued on August 18, 2019. 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 LMP 3 weeks ago. [...] SIGNATURE: MD Leland Delgado MD 04/14/201800 Normal [facility] Office Visit (Neuro-Movement -PD)on 03-07-2020 Follow-up visit [...] issues or needing to speak to my photographer assistant, Denisa- please call [phone], option 6. Diagnoses/Problems Tremor (781.0) (R25.1) Migraine headache (346.90) (G43.909) Orders Renew: Propranolol HCl - 10 MG [...] evaluation for tremor. referred by ED at [facility]. Due to COVID 19 crisis and need [...] seizure. COMPARISON: CT head 01/10/2020 ACCESSION NUMBER(S): [id number] ORDERING CLINICIAN: VELASQUEZ JENNINGS TECHNIQUE: Axial T2, [...] as stated. This study was interpreted at [facility], [place], [place]. Electronically signed by: KENDALL DAVID MD Normal [facility] TSH WITH REFLEX TO FREE T4 I F ABNORMALon 01-30-2020 TSH Qn 2.26 m[IU]/L Normal 0.44 - 3.98 [facility] Comment on above: Result Comment: TSH testing is performed using different testing methodology at [facility] than at other [facility]. Direct result comparisons should only be made within the same method. Performed By: #### T HYDS #### [facility] [address] [place] [address] Office Visit (Neuro-Movement )on 01-18-2020 Follow-up visit Diagnoses/Problems Tremor (781.0) (R25.1) Orders Start: Propranolol HCl - 10 MG Oral Tablet; take 1-2 tabs prn tremor EEG, Routine; Status:Hold For - Scheduling; Requested for:[id number]; Start: SUMAtriptan Succinate 50 MG Oral Tablet; TAKE 1 TABLET FOR MIGRAINE RELIEF. MAY REPEAT EVERY 2 HOURS. MAX 200MG/DAY MRI Brain w/wo Contrast; Status:Hold For - Scheduling; Requested for:[id number]; Radiologist to Determine Optimal Study : Y Does the patient have a Cochlear Implant, Pacemaker, Defibrilator, Pacing Wire, Brain Aneurysm Clip, Implanted Nerve or Bone Graft Simulator, Implanted Breast Tissue Director Supplier Quality, Glucose Monitor, or Neulasta Device? : No Is the patient or breast feeding? : No What are the patient's signs and symptoms? : new onset tremor, ? seizure TSH WITH REFLEX TO FREE T4 IF ABNORMAL; Specimen Source:Blood (BLD); Status:Active; Requested for:[id number]; Patient Discussion/Summary It was a pleasure seeing [...] issues or needing to speak to my photographer assistant, Denisa- please call [phone], option 6. Provider Impressions with panic attack [...] consent was requested and obtained from JOHANNY OrdoñezWILLALIN on this date, 01/18/2020 09:20 AM , for a telehealth visit. History of Present Illness 29 y/o F here for a new evaluation for tremor. referred by ED at [facility]. Due to COVID 19 crisis and need [...] Known Drug (more content not included)... Normal [facility] BASIC METABOLIC PANELon - Creatinine [Mass/Vol] 0.67 mg/dL Normal 0.50 - 1.05 [facility] Comment on above: Performed By: #### B MP #### [facility] [address] [place] [address] GFR- AM. >60 Normal >60 [facility] Comment on above: Result Comment: CALC ULATIONS OF ESTIMATED GFR ARE PERFORMED USING THE MDRD STUDY EQUATION FOR THE IDMS-TRACEABLE CREATININE METHODS. CLIN CHEM 2007;53:766-72 Performed By: #### B MP #### [facility] [address] [place] [address] GFR-NON AM. >60 Normal >60 [facility] Comment on above: Performed By: #### B MP #### [place] [address] [place] [address] Glucose [Mass/Vol] 108 mg/dL High 74 - 99 [facility] Comment on above: Performed By: #### B MP #### [address] [place] [address] Urea nitrogen [Mass/Vol] 9 mg/dL Normal 6 - 23 [facility] Comment on above: Performed By: #### B MP #### [address] [place] [address] Anion gap [Moles/Vol] 9 mmol/L Low 10 - 20 [facility] Comment on above: Performed By: #### B MP #### [address] [place] [address] Calcium [Mass/Vol] 9.6 mg/dL Normal 8.6 - 10.3 [facility] Comment on above: Performed By: #### B MP #### [address] [place] [address] Chloride [Moles/Vol] 109 mmol/L High 98 - 107 [facility] Comment on above: Performed By: #### B MP #### [address] [place] [address] HCO3 (Bld) [Moles/Vol] 26 mmol/L Normal 21 - 32 [facility] Comment on above: Performed By: #### B MP #### [address] [place] [address] Potassium [Moles/Vol] 3.9 mmol/L Normal 3.5 - 5.3 [facility] Comment on above: Performed By: #### B MP #### [address] [place] [address] Sodium [Moles/Vol] 140 mmol/L Normal 136 - 145 [facility] Comment on above: Performed By: #### B MP #### [address] [place] [address] CBC AND DIFFERENTIALon 01-09 -2019 % AUTOMATED IMMATURE GRAN 0.2 % Normal 0.0 - 0.9 [facility] Comment on above: Result Comment: Linette ture Granulocyte Count (IG) includes promyelocytes, myelocytes and metamyelocytes but does not include bands. Percent differential counts (%) should be interpreted in the context of the absolute cell counts (cells/L). Performed By: #### C BCDF #### [facility] [address] [facility] [place] [address] Basophils (Bld) [#/Vol] 0.04 10*3/uL Normal 0.00 - 0.10 [facility] Comment on above: Performed By: #### C BCDF #### [facility] [address] [place] [address], [place] [address] Basophils/100 WBC (Bld) 0.5 % Normal 0.0 - 2.0 [facility] Comment on above: Performed By: #### C BCDF #### [address] [place] [address] Eosinophils (Bld) [#/Vol] 0.07 10*3/uL Normal 0.00 - 0.70 [facility] Comment on above: Performed By: #### C BCDF #### [address] [place] [address] Eosinophils/100 WBC (Bld) 0.9 % Normal 0.0 - 6.0 [facility] Comment on above: Performed By: #### C BCDF #### [address] [place] [address] Erythrocyte distribution width (RBC) [Ratio] 12.4 % Normal 11.5 - 14.5 [facility] Comment on above: Performed By: #### C BCDF #### [address] [place] [address] Hematocrit (Bld) [Volume fraction] 45.1 % Normal 36.0 - 46.0 [facility] Comment on above: Performed By: #### C BCDF #### [address] [place] [address] Hemoglobin (Bld) [Mass/Vol] 14.5 g/dL Normal 12.0 - 16.0 [facility] Comment on above: Performed By: #### C BCDF #### [address] [place] [address] Lymphocytes (Bld) [#/Vol] 2.13 10*3/uL Normal 1.20 - 4.80 [facility] Comment on above: Performed By: #### C BCDF #### [address] [address] Lymphocytes/100 WBC (Bld) 26.3 % Normal 13.0 - 44.0 [facility] Comment on above: Performed By: #### C BCDF #### [address] [address] MCHC (RBC) [Mass/Vol] 32.2 g/dL Normal 32.0 - 36.0 [facility] Comment on above: Performed By: #### C BCDF #### [address] [address] MCV (RBC) [Entitic vol] 95 fL Normal 80 - 100 [facility] Comment on above: Performed By: #### C BCDF #### [address] [address] Monocytes (Bld) [#/Vol] 0.53 10*3/uL Normal 0.10 - 1.00 [facility] Comment on above: Performed By: #### C BCDF #### [address] [address] Monocytes/100 WBC (Bld) 6.5 % Normal 2.0 - 10.0 [facility] Comment on above: Performed By: #### C BCDF #### [address] [address] Neutrophils (Bld) [#/Vol] 5.32 10*3/uL Normal 1.20 - 7.70 [facility] Comment on above: Performed By: #### C BCDF #### [address] [address] Neutrophils/100 WBC (Bld) 65.6 % Normal 40.0 - 80.0 [facility] Comment on above: Performed By: #### C BCDF #### [address] [address] Nucleated RBC/100 WBC (Bld) [Ratio] 0.0 /100 WBC Normal 0.0 - 0.0 [facility] Comment on above: Performed By: #### C BCDF #### [address] [address] Platelets (Bld) [#/Vol] 282 10*3/uL Normal 150 - 450 [facility] Comment on above: Performed By: #### C BCDF #### [facility] [address] [place] [address] RBC (Bld) [#/Vol] 4.73 x10E12/L Normal 4.00 - 5.20 [facility] Comment on above: Performed By: #### C BCDF #### [facility] [address] [place] [address] WBC (Bld) [#/Vol] 8.1 10*3/uL Normal 4.4 - 11.3 [facility] Comment on above: Performed By: #### C BCDF #### [address] [address] [address] HEAD WO CONTRASTon 2019 CT HEAD WO CONTRAST Patient Name: JOHANNY FOX STUDY: CT HEAD WO CONTRAST; 01/10/2020 10:59 am INDICATION: tremors, worse RUE, new onset. COMPARISON: None. ACCESSION NUMBER(S): [id number] ORDERING CLINICIAN: PHONG ORTEZ TECHNIQUE: Volume acquisition [...] Electronically signed by: POWER GUARDADO MD Normal [facility] HCG,URINEon 01-10-2020 Beta HCG ( test) Ql (U) Negative Normal Negative [facility] Comment on above: Performed By: #### H CGU #### [facility] [address] [place] [address] Provider Note - ED v2on 12-19 Provider [...] documented data. SIGNIFICANT EVENTS: No documented data. FLIGHT/TRANSPORT NURSE: Is : no(1) Is : no(1) MEDICAL [...] From "Triage - ED" 10-Jan-2020 09:47 Normal [facility] Risk Screen - Adult Emergenc yon 01-10-2020 Risk Screen - Adult Emergency Preferred Language: Preferred Language: Preferred Language for Discussing Health Care (patient/designee)Faroese Advanced Directives: Advance Directive/DNRno Family Violence Adult: [...] Learning Preferencesindividual instruction Cultural Considerationsnone Developmental Considerationsnone Episcopalian Considerationsnone Learning Assessment (Other Learner): Learning Assessment (Other Learner): Other learner availableno Pressure Injury/TB/Substance: Pressure Injury: Pressure Injury Present on Admissionno Do you have a coughno Substance Use Current or Former Historynever: Cigarette/Tobacco, e-Cigarette/Vaping, Alcohol, Street Drugs Admission Risk Screen: Significant IndicatorsComplete CAGE: CAGE: Is this an injured patient at a Trauma Center ([facility] [place]): no Electronic Signatures: Susan Napoles (DOM) (Signed 10-Jan-2020 10:24) Authored: Preferred Language, Advanced Directives, Family Violence Adult, Learning Assessment (Patient), Learning Assessment (Other Learner), Pressure Injury/TB/Substance, CAGE Last Updated: 10-Jan-2020 10:24 by Susan Napoles (DOM) Normal [facility] Triage - EDon 01-10-2020 Triage - ED [...] 99% Weight: 99.2 pounds. Calculated 45.0 kg. Jossie Coma Scale: Best Eye Response: (E4) spontaneous Best Motor Response: (M6) obeys commands Best Verbal Response: (V5) oriented Jackpot Score: 15 Cough lasting greater than 3 [...] Medical History Reviewedyes Electronic Signatures: Claudia Sung (RN) (Signed 10-Jan-2020 09:50) Authored: Triage, Past Medical History Last Updated: 10-Jan-2020 09:50 by Claudia Sung (RN) Normal [facility] URINALYSISon 01-10-2020 Appearance (U) CLEAR Normal CLEAR [facility] Comment on above: Performed By: #### U A #### [facility] [address] [place] [address] Bilirubin (U) [Mass/Vol] Negative Normal NEGATIVE [facility] Comment on above: Performed By: #### U A #### [facility] [address] [place] [address], [place] [address] BLOOD Negative Normal NEGATIVE [facility] Comment on above: Performed By: #### U A #### [facility] [address] [place] [address] Color (U) YELLOW Normal STRAW,YELLOW [facility] Comment on above: Performed By: #### U A #### [facility] [address] [place] [address], [place] [address] Glucose [Mass/Vol] Negative Normal NEGATIVE [facility] Comment on above: Performed By: #### U A #### [facility] [address] [place] [address], [place] [address] Ketones Ql (U) Negative Normal NEGATIVE [facility] Comment on above: Performed By: #### U A #### [facility] [address] [place] [address], [place] [address] Leukocyte esterase Test strip Ql (U) Negative Normal NEGATIVE [facility] Comment on above: Performed By: #### U A #### [facility] [address] [place] [address], [place] [address] Nitrite Ql (U) Negative Normal NEGATIVE [facility] Comment on above: Performed By: #### U A #### [facility] [address] [place] [address], [place] [address] pH (Bld) 7.0 Normal 5.0 - 8.0 [facility] Comment on above: Performed By: #### U A #### [facility] [address] [place] [address], [place] [address] Protein (U) [Mass/Vol] Negative Normal NEGATIVE [facility] Comment on above: Performed By: #### U A #### [facility] [address] [place] [address] Specific gravity (U) [Rel density] 1.004 Low 1.005 - 1.035 [facility] Comment on above: Performed By: #### U A #### [facility] [address] [place] [address] Urobilinogen Qn (U) <2.0 Normal 0.0 - 1.9 [facility] Comment on above: Performed By: #### U A #### [address] [place] [address] Otheron 07-06-2019 Interpreted by: CJ OCAMPO07/06/19 18:45STUDY:Forearm Radiographs; 07/06/2019 and 5:26 pm. INDICATION:Fell against metal post yesterday. COMPARISON:None Available. ORDERING CLINICIAN:RAJINDER ORTIZ DO TECHNIQUE: Two view(s) of the right forearm. FINDINGS: There is no displaced fracture. The alignment is anatomic. No softtissue abnormality is seen. IMPRESSION: No acute osseous abnormality. Signed by Cj Ocampo MDElectronically signed by: CJ OCAMPO 07/06/19 18:45 Normal [facility] Work Phone: Comment on above: ORDER REVISED TO A F OREARM, MIN 2 VIEWS BY RADIOLOGIST Vital Signs Date Time Vital Sign Value Performing Clinician Facility 02-11-2025 08:05-0400 Body height 154.[address] Jeanie Cleveland MD Work Phone: [facility] 02-11-2025 08:05-0400 Body mass index (BMI) [Ratio] 20.7 kg/m2 Dr. Jeanie Cleveland MD Work Phone: [facility] 02-11-2025 08:05-0400 Body weight 49.[address] Jeanie Cleveland MD Work Phone: [facility] 02-11-2025 08:05-0400 Diastolic blood pressure 76 mm[Hg] Dr. Jeanie Cleveland MD Work Phone: [facility] 02-11-2025 08:05-0400 Heart rate 84 /min Dr. Jeanie Cleveland MD Work Phone: [facility] 02-11-2025 08:05-0400 Systolic blood pressure 99 mm[Hg] Dr. Jeanie Cleveland MD Work Phone: [facility] 01-02-2025 08:29-0400 Body height 157.5 cm Ruth Szalkowski PA-C Work Phone: [facility] 01-02-2025 08:29-0400 Body mass index (BMI) [Ratio] 17.92 kg/m2 Ruth Szalkowski PA-C Work Phone: [facility] 01-02-2025 08:29-0400 Body temperature 97.39 [degF] Ruth Szalkowski PA-C Work Phone: [facility] 01-02-2025 08:29-0400 Body weight 44.45 kg Ruth Szalkowski PA-C Work Phone: [facility] 01-02-2025 08:29-0400 Diastolic blood pressure 63 mm[Hg] Ruth Szalkowski PA-C Work Phone: [facility] 01-02-2025 08:29-0400 Heart rate 71 /min Ruth Szalkowski PA-C Work Phone: [facility] 01-02-2025 08:29-0400 Respiratory rate 16 /min Ruth Szalkowski PA-C Work Phone: [facility] 01-02-2025 08:29-0400 Systolic blood pressure 94 mm[Hg] Ruth Szalkowski PA-C Work Phone: [facility] 10-24-2024 11:25-0400 Body height 157.5 cm Ed Pearson CNP Work Phone: [facility] 10-24-2024 11:25-0400 Body mass index (BMI) [Ratio] 18.47 kg/m2 Ed Pearson CNP Work Phone: [facility] 10-24-2024 11:25-0400 Body weight 45.81 kg Ed Alvarez APRN - DELLA Work Phone: [facility] 10-24-2024 11:25-0400 Diastolic blood pressure 64 mm[Hg] Ed Alvarez APRN - DELLA Work Phone: [facility] 10-24-2024 11:25-0400 Heart rate 87 /min Ed Alvarez APRN - DELLA Work Phone: [facility] 10-24-2024 11:25-0400 SaO2% (BldA) [Mass fraction] 99 % Ed Pearson CNP Work Phone: [facility] 10-24-2024 11:25-0400 Systolic blood pressure 94 mm[Hg] Ed Pearson CNP Work Phone: [facility] 11-28-2023 09:52-0400 Diastolic blood pressure 60 mm[Hg] Sarahi Makenzie [facility] 11-28-2023 09:52-0400 Heart rate 74 /min Sarahi Makenzie [facility] 11-28-2023 09:52-0400 Respiratory rate 20 /min Sarahi Makenzie [facility] 11-28-2023 09:52-0400 SaO2% (BldA) [Mass fraction] 98 % Sarahi Makenzie [facility] 11-28-2023 09:52-0400 Systolic blood pressure 944 mm[Hg] Sarahi Makenzie [facility] 01-05-2021 09:34-0400 Body height [...] 97 [degF] Jeanie Y Cristofer Work Phone: [facility] Work Phone: 01-05-2021 09:34-0400 Body weight [...] 09:34-0400 Systolic blood pressure 96 mm[Hg] Jeanie Cleveland Work Phone: [facility] Work Phone: 01-05-2021 09:34-0400 7 1 Jeanie Y Cristofer Work Phone: [facility] [...] 19:07-0500 Height 154.94 cm Phong Kelley [facility] Work Phone: 07-06-2019 19:07-0500 Pulse (Heart Rate) 83 /min Phong Kelley [facility] Work Phone: 07-06-2019 19:07-0500 Pulse Oximetry 6 % Phong Kelley [facility] Work Phone: 07-06-2019 19:07-0500 Respiratory Rate 16 /min Phong Kelley [facility] Work Phone: 07-06-2019 19:07-0500 4.3125 1 Phong Kelley [facility] Work Phone: Comment on above: Pain Scale Encounters Encounter Date Encounter Type Care Provider Facility Start: 03-22-2025 ambulatory [facility] Facility:[facility] Start: 03-13-2025 End: 03-14-2025 Follow-up encounter Ruth Walter PA-C Work Phone: [facility] Comment on above: Comprehensive metabo lic panel, CBC, Lipid panel Comprehensive metabo lic panel, CBC, Lipid panel, TSH Start: 03-08-2025 ambulatory [facility] Facility:[facility] Start: 02-11-2025 End: 02-11-[address] Gabby August MD -[facility] Work Phone: Start: 02-11-2025 End: 02-11-[address] Jeanie Cleveland MD Work Phone: -[facility] Start: 01-02-2025 End: 01-02-2025 ambulatory RUTH WALTER [facility] Start: 01-02-2025 End: 01-02-2025 Encounter for general adult medical examination without abnormal findings RUTH WALTER [facility] Start: 01-02-2025 End: 01-02-2025 Initial preventive medicine new pt age 18-39yrs Ruth Walter PA-C Work Phone: [facility] Comment on above: Encounter to [facility] with new provider (Primary Dx); Annual physical exam; Tobacco use; Screening, lipid; Screening for endocrine disorder; Screening, anemia, deficiency, iron Start: 01-02-2025 End: 01-02-2025 Patient encounter procedure Ruth Walter PA-C Work Phone: [facility] Start: 01-01-2025 End: 01-01-2025 Telephone encounter Ruth Walter PA-C Work Phone: [facility] Start: 10-24-2024 End: 10-24-2024 [facility] Start: 10-24-2024 End: 10-24-2024 Office outpatient visit 15 minutes Ed Pearson CNP Work Phone: [facility] Internal [facility] Comment on above: Acute otitis externa of left ear, unspecified type (Primary Dx); Upper respiratory tract infection, unspecified type Start: 10-24-2024 End: 10-24-2024 ambulatory Anais Venegas RN [facility] Clinical Communication Start: 11-28-2023 Sarahi Banegas [facility] Start: 03-17-2023 End: 03-17-2023 Emergency department patient visit ZURI Beatris DE LA PAZ Facility:[facility] Start: 12-29-2022 End: 12-29-2022 Emergency department patient visit ZURI TANG DO Facility:[facility] Start: 05-31-2022 End: 05-31-2022 Emergency department patient visit JEANIE CLEVELAND Facility:[facility] Start: 10-22-2021 End: 10-22-2021 Subsequent hospital visit by physician Giselle Lennon MD [facility] Start: 10-09-2021 End: 10-09-2021 Subsequent hospital visit by physician Jeanie Cleveland MD Work Phone: [facility] Comment on above: Arrived Start: 01-12-2021 End: 01-12-2021 Subsequent hospital visit by physician Kendall Goldsmith MD [facility] Start: 01-05-2021 Office outpatient vi sit 15 minutes Jeanie Cleveland Work Phone: [facility] Work Phone: Start: 01-01-2021 End: 01-01-2021 Subsequent hospital visit by physician Kendall Goldsmith MD [facility] Start: 05-14-2020 End: 05-14-2020 Subsequent hospital visit by physician Kendall Goldsmith Work Phone: [facility] Comment on above: Acute pain of left k nee Start: 07-06-2019 Patient encounter procedure Phong Kelley [facility] Work Phone: Start: 06-26-2019 End: 06-26-2019 Subsequent hospital visit by physician Jeanie Cleveland MD Work Phone: [facility] Start: 11-19-2018 Patient encounter procedure Phong Kelley [facility] Work Phone: Start: 09-15-2018 Patient encounter procedure Phong Kelley [facility] Work Phone: Start: 07-24-2018 Patient encounter procedure Phong Kelley [facility] Work Phone: Start: 10-29-2017 Patient encounter procedure Phong Kelley [facility] Work Phone: Procedures Date Procedure Procedure Detail Performing Clinician Start: 03-12-2025 Lipid 1996 panel - S isabella or Plasma Ruth Walter PA-C Work Phone: Start: 10-24-2024 Adult depression screening assessment Anais Venegas RN Start: 11-28-2023 Therapeutic prophylactic/dx injection subq/im Sarahi Banegas Start: 10-09-2021 Mri spinal canal cer vical w/o contrast matrl Giselle Lennon MD Work Phone: Start: 06-24-2020 Follow-up visit Start: 05-14-2020 Radiologic exam knee complete 4/more views Kednall Goldsmith Work Phone: Start: 07-06-2019 Xray Forearm 2 View Chr istopher Tangen Plan of Treatment Date Care Activity Detail Author Start: 2067 RSV Immunization for Adults (1 - 1-dose 75+ series) RSV Immunization for Adults (1 - 1-dose 75+ series) [facility] Start: 2042 Zoster Vaccines (1 of 2) Zoster Vacc peter (1 of 2) [facility] Start: 03-12-2030 Lipid panel Lipid Panel [facility] Start: 12-09-2029 DTaP/Tdap/Td vaccine (9 - Td or Tdap) DTaP/Tdap/Td vaccine (9 - Td or Tdap) [facility] Start: 12-09-2029 DTaP/Tdap/Td Vaccine s (10 - Td or Tdap) DTaP/Tdap/Td Vaccines (10 - Td or Tdap) [facility] Start: 02-01-2027 DTaP/Tdap/Td vaccine (8 - Td) DTaP/Tdap/Td vaccine (8 - Td) [facility] Work Phone: Start: 01-07-2026 End: 01-07-2026 Patient encounter procedure [facility] [place] [facility] Start: 10-24-2025 Depression Screening Depression Scre ening [facility] Start: 02-18-2025 COVID-19 Vaccine ( season) COVID-19 Vaccine ( season) [facility] Start: 02-18-2025 Influenza vaccination S [facility] Start: 01-02-2025 End: 01-02-2026 CBC panel - Blood by Automated count CBC Lab Routine Annual physical exam Tobacco use Screening, anemia, deficiency, iron Expected: 01/02/2025 (Approximate), Expires: 01/02/2026 [facility] Comment on above: Expected: 01/02/2025 (Approximate), Expires: 01/02/2026 Start: 01-02-2025 End: 01-02-2026 Comprehensive metabolic 1998 panel - Serum or Plasma Comprehensive metabolic panel Lab Routine Annual physical exam Screening for endocrine disorder Expected: 01/02/2025 (Approximate), Expires: 01/02/2026 [facility] Work Phone: Comment on above: Expected: 01/02/2025 (Approximate), Expires: 01/02/2026 Start: 01-02-2025 End: 01-02-2026 Lipid 1996 panel - Serum or Plasma Lipid panel Lab Routine Annual physical exam Screening, lipid Expected: 01/02/2025 (Approximate), Expires: 01/02/2026 [facility] Comment on above: Expected: 01/02/2025 (Approximate), Expires: 01/02/2026 Start: 01-02-2025 End: 01-02-2026 Thyrotropin [Units/volume] in Serum or Plasma TSH Lab Routine Annual physical exam Screening for endocrine disorder Expected: 01/02/2025 (Approximate), Expires: 01/02/2026 [facility] Comment on above: Expected: 01/02/2025 (Approximate), Expires: 01/02/2026 Start: 01-02-2025 End: 01-02-2025 Patient encounter procedure 01/02/2025 8:20 AM EDT [facility] [address] [facility] [address] [place] [address] Ruth Walter PA-C [address] [place] [address] [facility] Start: 11-21-2024 End: 11-21-2024 Patient encounter procedure 11/21/2024 11:00 AM EDT [facility] [address] [facility] [address] [place] [address] Ruth Walter PA-C [address] [place] [address] [facility] Start: 02-19-2024 COVID-19 Vaccine ( season) COVID-19 Vaccine () [facility] Start: 09-18-2022 Depression Screen Depression Screen [facility] Start: 2022 Screening for malign ant neoplasm of cervix [facility] Start: 02-18-2022 Influenza vaccination Flu vacc ine (Season Ended) [facility] Start: 12-23-2021 End: 12-23-2021 Patient encounter procedure 12/23/2021 Office Visit Internal Medicine Jeanie Cleveland MD [address] [facility] [address] [place] [address] [facility] [place] [facility] Start: 02-18-2021 Influenza vaccination Flu vaccine (# 1) [facility] Work Phone: Start: 02-19-2020 Influenza vaccination Flu vaccine (# 1) [place] Start: 02-18-2019 Influenza vaccination Flu vaccine (# 1) [facility] Work Phone: Start: 2013 Cervical cancer screen Cervical canc er screen [facility] Work Phone: Start: 2013 Screening for malign ant neoplasm of cervix [facility] Start: 2011 Pneumococcal Vaccine : Pediatrics (0 to 5 Years) and At-Risk Patients (6 to 49 Years) (1 of 2 - PCV) Pneumococcal Vaccine: Pediatrics (0 to 5 Years) and At-Risk Patients (6 to 49 Years) (1 of 2 - PCV) [facility] Start: 2010 Diabetes mellitus screening Diabetes Screening [facility] Start: 2010 Hepatitis C screening S [facility] Start: 02-20-2009 Meningococcal B Vacc ine (2 of 2 - Bexsero SCDM 2-dose series) Meningococcal B Vaccine (2 of 2 - Bexsero SCDM 2-dose series) [facility] Start: 2007 HIV screen HIV screen [facility] Work Phone: Start: 2007 HIV screening HIV screen [facility] Start: 2004 COVID-19 Vaccine (1) COVID-19 Vaccin e (1) [facility] Work Phone: Start: 1998 Pneumococcal 0-64 ye ars Vaccine (1 - PCV) Pneumococcal 0-64 years Vaccine (1 - PCV) [facility] Start: 1998 Pneumococcal 0-64 ye ars Vaccine [...] Hepatitis C screening Hepatitis C sc reen [facility] Work Phone: Start: 1992 HIV screening [facility] Screening [facility] Start: 1992 Lipid panel Lipid Panel [facility] US Kidney - bilatera l and Urinary bladder [facility] End: 06-26-2019 US RETROPERITONEAL COMPLETE US RETROPERITONEAL COMPLETE Imaging Routine Once for 1 Occurrences starting 06/26/2019 until 06/26/2019 [facility] Work Phone: Comment on above: Once for 1 Occurrenc es starting 06/26/2019 until 06/26/2019 US RETROPERITONEAL COMPLETE US RETROPERITONEAL COMPLETE Imaging Routine 06/26/2019 1:15 PM EST [facility] Work Phone: Immunizations Immunization Date Immunization Notes Care Provider Jeremi dodd 12-10-2019 tetanus toxoid, redu kirsten diphtheria toxoid, and acellular pertussis vaccine, adsorbed; Translations: [Tdap (Adacel)] Jeanie Cleveland Work Phone: [facility] Comment on above: Series: 02-01-2017 diphtheria, tetanus toxoids and acellular pertussis vaccine, unspecified formulation; Translations: [Boostrix 5-2.5-18.5 SUSP] Phong Kelley [facility] Work Phone: 02-01-2017 tetanus toxoid, redu kirsten diphtheria toxoid, and acellular pertussis vaccine, adsorbed Jeanie Cleveland MD Work Phone: [facility] Work Phone: 01-28-2011 hepatitis A vaccine, pediatric/adolescent dosage, 2 dose schedule Jeanie Cleveland MD Work Phone: [facility] Work Phone: 08-20-2008 hepatitis A vaccine, adult dosage Jeanie Cleveland MD Work Phone: [facility] 08-20-2008 meningococcal B vacc ine, recombinant, OMV, [...] 03-30-1994 hepatitis B vaccine, adult dosage Jeanie Cleveland [...] Payers Date Payer Category Payer Self-pay 2021 [employer] [facility] [employer]ICHTER [id number] 2021 Unknown [id number] 2017 Unknown [employer] [address] [id number] 2017-Present [phone] [address] [place] [address] [id number] 2017 Unknown [employer] [address] xxxxxxxxxxxx 2017- [phone] [address] [place] [address] xxxxxxxxxxxx [id number] Unknown [employer] Unknown [id number] Unknown [id number] Unknown [id number] Social History Date Type Detail Facility Start: 11-06-2019 End: 01-02-2025 Tobacco smoking status NHIS Current every day smoker [facility] Work Phone: History of tobacco use Cigarette Smoker S [employer] Work Phone: Start: 11-06-2019 End: 10-24-2024 Cigarettes smoked current (pack per day) - Reported [facility] Work Phone: Start: 11-06-2019 End: 01-02-2025 Tobacco use and exposure Never used [place] Start: 11-06-2019 End: 03-13-2025 Alcohol intake Ex-drinker (finding) [facility] Start: 11-06-2019 End: 09-18-2021 History SDOH Alcohol Frequency 1 [place] Start: 11-06-2019 End: 09-18-2021 History SDOH Social Connections Phone 5 [place] Start: 11-06-2019 History SDOH Social Connections Get Together 2 [place] Start: 11-06-2019 History SDOH Social Connections Meetings 3 [place] Start: 11-06-2019 History SDOH Social Connections Living 7 [place] Start: 11-06-2019 History SDOH Physica l Activity MPS 6 [place] Start: 1990 Sex Assigned At Not on file S [employer] Work Phone: Start: 09-28-2021 End: 10-08-2021 Exposure to SARS-CoV-2 (event) Not sure [place] Start: 06-14-2019 Alcohol intake Current drinke r of alcohol (finding) [facility] Work Phone: Start: 10-24-2024 End: 01-02-2025 Tobacco use panel [facility] Start: 01-18-2022 Sex Female (finding) [facility] Start: 1990 Sex Assigned At Female [facility] NEGATED: Highlighted row - - [facility] Work Phone: Functional Status Date Assessment Result Facility NEGATED: Highlighted row Functional performance Functional status health issues are not documented Disease [facility] Work Phone: Mental Status Date Assessment Result Facility NEGATED: Highlighted row Cognitive function [Interpretation] Cognitive status health issues are not documented [facility] Work Phone: Clinical Notes 03-17-2023 to 01-02-2025 Ruth Walter PA-C - 01/02/2025 8:20 AM EDTTelephone Encounter - [facility] - 01/01/2025 11:36 AM EDTTelephone Encounter - [facility] - 01/01/2025 11:36 AM EDT Note Date & Type Note Facility 01-02-2025 History of Presen t illness Narrative Images from the original note were not included. [facility] Johanny Fox Date of : 1990 Age : 34 y.o. Date of Visit: 01/02/2025 Chief Complaint: Johanny Fox is a 34 y.o. female who presents for Chief Complaint Patient presents with Establish Care HPI: New patient here to re-establish care- prev Cristofer patient. Following with mental health orderly Asking for annual visit. Labs done 02/2023- normal/stable. She is asking for help with smoking cessation- smoking 1/2-1 ppd Review of Systems Constitutional: Negative. Negative for activity change (works in [employer] and appetite change (less during the day. [...] with new provider - Primary Relevant Orders [employer] Annual physical exam ~ reviewed HCGs and [...] 1 Expected Date: 01/02/2025 Expiration Date[facility] Standing Status: Future Expected Date: 01/02/2025 Expiration [...] No Known Allergies documented in this encounter [facility] 01-01-2025 Telephone encount er Note Called patient to confirm tomorrow's appointment. No answer. Left message. [facility] 01-01-2025 Miscellaneous Notes Formattin g of this note might be different from the original. Called patient to confirm tomorrow's appointment. No answer. Left message. documented in this encounter [facility] 10-24-2024 History of Presen t illness Narrative Images from the original note were not included. [facility] [address] [place] [address] Dept: [phone] Dept Reason for Visit: Earache (left ear [...] Feldman CNP 10/24/24 documented in this encounter [facility] [employer] 10-24-2024 Telephone encount er Note S: Patient [...] menstrual period?" No Protocols used: Ear - [id number] [facility] 10-24-2024 Miscellaneous Notes Formattin g of [...] menstrual period?" No Protocols used: Ear - [id number] documented in this encounter [facility] 04-02-2023 Note HNO ID: [id number] Author: Note, Interface Service: ? Author Type: ? Type: Progress Notes Filed: 04/02/2023 2:56 AM Note Text: Epic Scheduled Downtime: 04/02/2023 1:00:00 AM to 04/02/2023 1:28:00 AM [facility] 03-17-2023 Note HNO ID: [id number] Author: Lilly Rivera RT(R) Service: ? Author Type: Technologist Type: Progress [...] IV DATA: Not applicable SIGNED BY: RT Luna(Iram) March 17, 2023 2:08 PM [facility] Evaluation note Diagnosis Acute otitis externa of left ear, unspecified type- Primary Upper respiratory tract infection, unspecified type [facility] Encounter to establish care with new provider- Primary Annual physical exam Routine general medical examination at a health care facility Tobacco use Screening, lipid Screening for endocrine disorder Screening, anemia, deficiency, iron Screening for iron deficiency anemia [facility]* Diagnosis Onset Date Resolution Status Admit Date H/O renal calculi acute February 11, 2025 7:58am [facility] Work Phone: Instructions* Instruction Text Ibuprofen as neededFlexeril as needed; may cause drowsinessRange of motion exercises discussedApply ice, 10 minutes at a timeFollow up with new or worsening symptoms [facility] Reason for referral (narrative)No reason for referral information availableMorningside [facility] Work Phone: Summary Purpose Family History No Family History Records FoundNo Family History Records FoundNo Family History Records FoundNo Family History Records FoundNo Family History Records FoundNo Family History Records FoundNo Family History Records FoundNo Family History Records Found Advance Directives Documents on File Type Date Recorded Patient Neurology Nurse Expl anation ACP-Advance Directive ACP-Power of Office Technology Professor Documents on File Type Date Recorded Patient Neurology Nurse Expl anation Advance Directives and Living Will Power of Office Technology Professor Documents on File Type Date Recorded Patient Neurology Nurse Expl anation ACP-Advance Directive ACP-Power of Office Technology Professor Assessments Diagnosis Acute pain of left knee Chief Complaint and Reason for Visit Chief Complaint Admit Date old/new pt. stones February 11, 2025 7: 58am Reason for Visit Admit Date H/O renal calculi February 11, 2025 7: 58am Additional Source Comments INFORMATION SOURCE (unrecogn ized section and content) DATE CREATED AUTHOR 04/07/2020 [facility] DATE CREATED AUTHOR AUTHOR'S ORGANIZ ATION 04/16/2020 [facility] DATE CREATED AUTHOR AUTHOR'S ORGANIZ ATION 01/05/2021 [facility] DATE CREATED AUTHOR AUTHOR'S ORGANIZ ATION 01/05/2021 [employer] DATE CREATED AUTHOR AUTHOR'S ORGANIZ ATION 10/30/2021 [facility] DATE CREATED AUTHOR AUTHOR'S ORGANIZ ATION 04/03/2023 [facility] DATE CREATED AUTHOR AUTHOR'S ORGANIZ ATION 01/05/2025 [facility] DATE CREATED AUTHOR AUTHOR'S ORGANIZ ATION 03/13/2025 [facility] Reason for Visit (unrecogniz ed section and content) Status Reason Specialty Diagnoses / Procedures Re ferred By Contact Referred To Contact Closed Radiology Diagnoses Kidney stone Procedures US Retroperitoneal Limited Jeanie Cleveland MD [address] [facility] [address] [place] [address] Specialty Diagnoses / Procedures Referred By Contac t Referred To Contact Radiology Diagnoses Cervical pain (neck) Muscle tension headache Procedures MRI CERVICAL SPINE WO CONTRAST Giselle Lennon MD [address] [facility] [address] [place] [address] Referral ID Status Reason Start Date Expiration Date Visits Re quested Visits Authorized Closed 09/18/2021 09/18/2022 1 1 Reason Onset Date Comments Ear Fullness 10/24/2024 Reason Comments Earache left ear pain; fulln ess; cannot hear out of that ear; Reason Comments Establish Care Care Teams (unrecognized sec tion and content) Photographer News Relationship Specialty Start Date End Date Jeanie Cleveland MD PCP - General Family Medicine 02/01/17 Photographer News Relationship Specialty Start Date End Date Jeanie Cleveland MD PCP - General Family Medicine 02/01/17 Photographer News Relationship Specialty Start Date End Date System, [facility] [employer] [address] [place] [phone] PCP - General 11/17/23 Photographer News Relationship Specialty Start Date End Date System, [facility] [employer] [address] [place] [phone] PCP - General 11/17/23 Photographer News Relationship Specialty Start Date End Date System, [facility] [employer] [address] [place] [phone] PCP - General 11/17/23 Photographer News Relationship Specialty Start Date End Date System, [facility] [employer] [address] [place] [phone] PCP - General 11/17/23 Team Status: Active [...] February 11, 2025 End: February 11, 2025 Photographer News Relationship Specialty Start Date End Date [facility] [employer] [address] [place] [phone] PCP - General 11/17/23 Goals (unrecognized section and content) Goals may [...] BE BASED ON THE PRIMARY CLINICAL RECORDS. [employer] provides no warranty or guarantee of the accuracy or completeness of information in this document.
== END | disposition home or self-care (01) ==
LOC: CT 16:47
PROVIDERS: Referring Provider Urology; Visit Provider Urology
DX: N20.0 Calculus of kidney (principal)
CPT/HCPCS: 74176